=== PATIENT | male | born 1960 | race Caucasian/White ===

== ENCOUNTER 2017-12-14 16:45 | Outpatient (RCR) | payer OTHER, SELFPAY ==
--- NOTE | 2017-08-09 17:15 | PT.OIE ---
Current Diagnoses Unilateral primary osteoarthritis, left knee (08/09/17) Past Surgical History (Last Reviewed 07/15/17 @ 11:47 by Jesenia Dickson PA-C) History of knee replacement History of vasectomy Status post knee surgery Provider Visit Care Team Role Provider Type Stefan Saravia MD Attending Provider Physician Family Provider Primary Care Provider Specialty: Internal Medicine Address: [address] [place] [address], [facility] Email: [email or web address] Physical Therapy Initial Evaluation PT-OP-A Visit Information Start: 08/09/17 09:47 Freq: Status: Active Protocol: Document 08/09/17 10:34 [facility] (Rec: 08/09/17 15:14 [facility] [id number]) Out-Patient Physical Therapy Visit Information Visit Information Visit Type Initial Evaluation Visit Start Time 10:30 Visit Stop Time 11:25 Total Visit Minutes 55 Visit Number 04/04 Number of MEDICAL STAFF SPECIALIST Visits 0 PT-OP-B Current Condition Start: 08/09/17 09:47 Freq: Status: Active Protocol: Document 08/09/17 10:34 [facility] (Rec: 08/09/17 17:15 [facility] [id number]) Current Condition History of Current Condition History of Current Condition Pt had L partial knee replacement on 08/07/17 and has been taking percocet and visceral for pain. 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 Reports he played a lot of football when he was young, causing him to need his replacements. Treatment Goals Patient/Caregiver Goals Recover without requiring a manipulation PT-OP-C Subjective Start: 08/09/17 09:47 Freq: Status: Active Protocol: Document 08/09/17 10:34 [facility] (Rec: 08/09/17 15:14 [facility] [id number]) Patient Questionnaires Lower Extremity Functional Scale LEFS Score 1 LEFS Impairment 80 to 99% Impaired (Score 1-16 ) OP-PT Pain Assessment Location Left Knee Pain Location Details lat Intensity 9 Scale Used Numeric (1 - 10) Other Pain Aggravating Factors activity, bending Home Pain Medication Use Pain Medications Used Yes PT-OP-G Mobility & Gait Start: 08/09/17 09:47 Freq: Status: Active Protocol: Document 08/09/17 10:34 [facility] (Rec: 08/09/17 15:10 [facility] [id number]) OP Gait Assessment Comments Gait Comments Step to with fwd lean & FWW PT-OP-K Range of Motion Start: 08/09/17 09:47 Freq: Status: Active Protocol: Document 08/09/17 10:34 [facility] (Rec: 08/09/17 15:10 [facility] [id number]) Knee Goniometric Range of Motion Knee Measured in Degrees Left Patient Position Supine Flexion Active (degrees) 64 Extension Active (degrees) 25 PT-OP-M Strength Start: 08/09/17 09:47 Freq: Status: Active Protocol: Document 08/09/17 10:34 [facility] (Rec: 08/09/17 15:10 [facility] [id number]) Hip Strength Hip Manual Muscle Testing Right Flexion (L2) 4 Good External Rotation 4- Good- Internal Rotation 4 Good Comments knee & ankle WNL R Left Flexion (L2) 3- Fair- External Rotation 3 Fair Internal Rotation 3 Fair Knee Strength Knee Manual Muscle Testing Left Flexion (S2) 3+ Fair+ Extension (L3) 2- Poor- PT-OP-Q Treatments Start: 08/09/17 09:47 Freq: Status: Active Protocol: Document 08/09/17 10:34 [facility] (Rec: 08/09/17 15:10 [facility] [id number]) Therapeutic Exercises Supine Exercises 6 Supine Exercise Name SAQ Side left Comments AA 5 Supine Exercise Name SLR Side left Comments AA 4 Supine Exercise Name passive ext Reps/Minutes 1' 3 Supine Exercise Name quad sets Side left Reps/Minutes 10 2 Supine Exercise Name heel slides Side left Reps/Minutes 10 1 Supine Exercise Name APs Side bilateral Sitting Exercises 1 Sitting Exercise Name seated flex Reps/Minutes 3 Therapeutic Activity Therapeutic Activity 1 Name edu Comments icing, frequent small bouts of activity, importance of HEP PT-OP-T Assessment and Plan Start: 08/09/17 09:47 Freq: Status: Active Protocol: Document 08/09/17 10:34 [facility] (Rec: 08/09/17 17:15 [facility] [id number]) Physical Therapy Assessment Rehab Potential Rehabilitation Potential Excellent Evaluation Complexity Number of Personal Factors/Comorbidities 3 or More Number of Body Systems Impaired 4 or More Clinical Presentation at Evaluation Evolving Impairments Impairments Balance Gait Pain Posture Soft Tissue Mobility Strength Goals Four Impairment LEFS Short Term Goal (STG) 35/80 STG Duration 09/09/47 Magnetic Healer Goal (LTG) 65/80 LTG Duration 10/09/17 Three Impairment gait Short Term Goal (STG) Pt will amb with good mechanics with SPC STG Duration 08/28/17 Retirement Goal (LTG) Pt will amb with good mechanics without AD LTG Duration 10/09/17 Two Impairment MMT Retirement Goal (LTG) 5/5 to allow pt to do normal functional & rec activities LTG Duration 10/09/17 One Impairment ROM Short Term Goal (STG) 10-100 STG Duration 09/08/17 Magnetic Healer Goal (LTG) 0-125 to allow pt to do stairs and functional activities without pain LTG Duration 08/09/17 Physical Therapy Plan Frequency and Duration Frequency of Treatment 2x/Week Duration of Treatment 2months Plan of Care Start Date 08/09/17 Plan of Care End Date 10/09/17 Therapeutic Interventions Therapeutic Interventions Aquatic Therapy Balance Training Gait Training Home Exercise Program Joint Mobilizations Manual Therapy Soft Tissue Mobilization Taping Therapeutic Exercises Modalities Cold Pack/Ice Massage Electric Stimulation Hot Packs Ultrasound Next Visit Focus/Plan Next Note Type Treatment Note Next Visit Plan Recumbant bike, review HEP, heel raises, supine abd, knee flex exercises Please Sign and Return: I have reviewed this Plan of Care and certify that the skilled therapy services above are required to meet the patient?s needs. Physician Signature Date Printed Name and Credentials Clinical Instructor Signature Printed Name and Credentials
--- NOTE | 2017-08-09 17:15 | PT.OPPOC ---
Current Diagnoses Unilateral primary osteoarthritis, left knee (08/09/17) Provider Visit Care Team Role Provider Type Stefan Saravia MD Attending Provider Physician Family Provider Primary Care Provider Specialty: Internal Medicine Address: [address] [place] [address], [id number] Email: [email or web address] Plan Of Care PT-OP-T Assessment and Plan Start: 08/09/17 09:47 Freq: Status: Active Protocol: Document 08/09/17 10:34 [facility] (Rec: 08/09/17 17:15 [facility] [id number]) Physical Therapy Assessment Rehab Potential Rehabilitation Potential Excellent Evaluation Complexity Number of Personal Factors/Comorbidities 3 or More Number of Body Systems Impaired 4 or More Clinical Presentation at Evaluation Evolving Impairments Impairments Balance Gait Pain Posture Soft Tissue Mobility Strength Goals Four Impairment LEFS Short Term Goal (STG) 35/80 STG Duration 09/09/47 Back Filler Operator Goal (LTG) 65/80 LTG Duration 10/09/17 Three Impairment gait Short Term Goal (STG) Pt will amb with good mechanics with SPC STG Duration 08/28/17 Alf Goal (LTG) Pt will amb with good mechanics without AD LTG Duration 10/09/17 Two Impairment MMT Back Filler Operator Goal (LTG) 5/5 to allow pt to do normal functional & rec activities LTG Duration 10/09/17 One Impairment ROM Short Term Goal (STG) 10-100 STG Duration 09/08/17 Back Filler Operator Goal (LTG) 0-125 to allow pt to do stairs and functional activities without pain LTG Duration 08/09/17 Physical Therapy Plan Frequency and Duration Frequency of Treatment 2x/Week Duration of Treatment 2months Plan of Care Start Date 08/09/17 Plan of Care End Date 10/09/17 Therapeutic Interventions Therapeutic Interventions Aquatic Therapy Balance Training Gait Training Home Exercise Program Joint Mobilizations Manual Therapy Soft Tissue Mobilization Taping Therapeutic Exercises Modalities Cold Pack/Ice Massage Electric Stimulation Hot Packs Ultrasound Next Visit Focus/Plan Next Note Type Treatment Note Next Visit Plan Recumbant bike, review HEP, heel raises, supine abd, knee flex exercises Plan of Care Dates Plan of Care Start Date 08/09/17 Plan of Care End Date 10/09/17 Please Sign and Return: I have reviewed this Plan of Care and certify that the skilled therapy services above are required to meet the patient?s needs. Physician Signature Date Printed Name and Credentials Clinical Instructor Signature Printed Name and Credentials
--- NOTE | 2017-08-11 15:36 | PT.OTN ---
Current Diagnoses Unilateral primary osteoarthritis, left knee (08/11/17) Physical Therapy Treatment Note PT-OP-A Visit Information Start: 08/09/17 09:47 Freq: Status: Active Protocol: Document 08/11/17 14:06 [facility] (Rec: 08/11/17 15:34 [facility] [id number]) Out-Patient Physical Therapy Visit Information Visit Information Visit Type Treatment Note Visit Note 30 PCY Visit Start Time 13:45 Visit Stop Time 14:40 Total Visit Minutes 55 Visit Number 2 PT-OP-B Current Condition Start: 08/09/17 09:47 Freq: Status: Active Protocol: Document 08/09/17 10:34 [facility] (Rec: 08/09/17 17:15 [facility] [id number]) Current Condition History of Current Condition History of Current Condition Pt had L partial knee replacement on 08/07/17 and has been taking percocet and visceral for pain. 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 Reports he played a lot of football when he was young, causing him to need his replacements. Treatment Goals Patient/Caregiver Goals Recover without requiring a manipulation PT-OP-C Subjective Start: 08/09/17 09:47 Freq: Status: Active Protocol: Document 08/11/17 14:06 [facility] (Rec: 08/11/17 15:34 [facility] [id number]) OP-PT Subjective Patient Comments Patient Comments Reports he thinks flex is improving. Notes his calf has been a little sore but he feels better with APs. PT-OP-G Mobility & Gait Start: 08/09/17 09:47 Freq: Status: Active Protocol: Document 08/09/17 10:34 [facility] (Rec: 08/09/17 15:10 [facility] [id number]) OP Gait Assessment Comments Gait Comments Step to with fwd lean & FWW PT-OP-K Range of Motion Start: 08/09/17 09:47 Freq: Status: Active Protocol: Document 08/09/17 10:34 [facility] (Rec: 08/09/17 15:10 [facility] [id number]) Knee Goniometric Range of Motion Knee Measured in Degrees Left Patient Position Supine Flexion Active (degrees) 64 Extension Active (degrees) 25 PT-OP-M Strength Start: 08/09/17 09:47 Freq: Status: Active Protocol: Document 08/09/17 10:34 [facility] (Rec: 08/09/17 15:10 [facility] [id number]) Hip Strength Hip Manual Muscle Testing Right Flexion (L2) 4 Good External Rotation 4- Good- Internal Rotation 4 Good Comments knee & ankle WNL R Left Flexion (L2) 3- Fair- External Rotation 3 Fair Internal Rotation 3 Fair Knee Strength Knee Manual Muscle Testing Left Flexion (S2) 3+ Fair+ Extension (L3) 2- Poor- PT-OP-Q Treatments Start: 08/09/17 09:47 Freq: Status: Active Protocol: Document 08/11/17 14:06 [facility] (Rec: 08/11/17 15:34 [facility] [id number]) Cardio Equipment Recumbent Bicycle Duration (Minutes) 5 Other rocking Therapeutic Exercises Supine Exercises 5 Supine Exercise Name SLR Side left Reps/Minutes 5 4 Supine Exercise Name passive ext Reps/Minutes 1' 3 Supine Exercise Name quad sets Side left Reps/Minutes 10 2 Supine Exercise Name heel slides Side left Reps/Minutes 10 Comments w/belt use 1 Supine Exercise Name APs Side bilateral Standing Exercises 1 Standing Exercise Name TKE against pillow at wall Manual Therapy Treatment Soft Tissue Mobilization 1 Body Location HS proximal Mobilization Type Rolling Intensity/Depth Superficial Manual Techniques 1 Type Passive ext & flex stretches & HS stretching Comments educated Self-Care/Home Management Treatment Education Other Education Elevate LE over heart & go to ED if calf pain gets worse or redness or swelling is noted. PT-OP-R Modalities Start: 08/09/17 09:47 Freq: Status: Active Protocol: Document 08/11/17 14:06 [facility] (Rec: 08/11/17 15:36 [facility] [id number]) Hot Pack/Cold Pack Treatment cryocuff Location L knee Patient Position Supine Treatment Duration (minutes) 10 Comments Leg elevated PT-OP-T Assessment and Plan Start: 08/09/17 09:47 Freq: Status: Active Protocol: Document 08/11/17 14:06 [facility] (Rec: 08/11/17 15:34 [facility] [id number]) Physical Therapy Assessment Goals Four Impairment LEFS Short Term Goal (STG) 35/80 STG Duration 09/09/47 Building Operator Goal (LTG) 65/80 LTG Duration 10/09/17 Three Impairment gait Short Term Goal (STG) Pt will amb with good mechanics with SPC STG Duration 08/28/17 Half-Way Goal (LTG) Pt will amb with good mechanics without AD LTG Duration 10/09/17 Two Impairment MMT Building Operator Goal (LTG) 5/5 to allow pt to do normal functional & rec activities LTG Duration 10/09/17 One Impairment ROM Short Term Goal (STG) 10-100 STG Duration 09/08/17 Building Operator Goal (LTG) 0-125 to allow pt to do stairs and functional activities without pain LTG Duration 08/09/17 Assessment Summary Assessment Pt is improving with his flexion to 72 deg after manual and self stretching. No tenderness in calf with squeeze and neg negrita's test. No redness or inc temp present in calf. Pt cont to be very tight into ext and presented with less ext since last visit. Improved with manual rx and pt to start elevating leg further over heart. Physical Therapy Plan Frequency and Duration Frequency of Treatment 2x/Week Duration of Treatment 2months Plan of Care Start Date 08/09/17 Plan of Care End Date 10/09/17 Therapeutic Interventions Therapeutic Interventions Aquatic Therapy Balance Training Gait Training Home Exercise Program Joint Mobilizations Manual Therapy Soft Tissue Mobilization Taping Therapeutic Exercises Modalities Cold Pack/Ice Massage Electric Stimulation Hot Packs Ultrasound Next Visit Focus/Plan Next Note Type Treatment Note Next Visit Plan supine abd, ball flex, review HEP Please Sign and Return: I have reviewed this Plan of Care and certify that the skilled therapy services above are required to meet the patient?s needs. Physician Signature Date Printed Name and Credentials Clinical Instructor Signature Printed Name and Credentials
--- NOTE | 2017-08-16 10:32 | PT.OTN ---
Current Diagnoses Unilateral primary osteoarthritis, left knee (08/16/17) Physical Therapy Treatment Note PT-OP-A Visit Information Start: 08/09/17 09:47 Freq: Status: Active Protocol: Document 08/16/17 09:50 [facility] (Rec: 08/16/17 10:30 [facility] [id number]) Out-Patient Physical Therapy Visit Information Visit Information Visit Type Treatment Note Visit Note 30 PCY Visit Start Time 09:45 Visit Stop Time 10:40 Total Visit Minutes 55 Visit Number 3 PT-OP-B Current Condition Start: 08/09/17 09:47 Freq: Status: Active Protocol: Document 08/09/17 10:34 [facility] (Rec: 08/09/17 17:15 [facility] [id number]) Current Condition History of Current Condition History of Current Condition Pt had L partial knee replacement on 08/07/17 and has been taking percocet and visceral for pain. 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 Reports he played a lot of football when he was young, causing him to need his replacements. Treatment Goals Patient/Caregiver Goals Recover without requiring a manipulation PT-OP-C Subjective Start: 08/09/17 09:47 Freq: Status: Active Protocol: Document 08/16/17 09:50 [facility] (Rec: 08/16/17 10:30 [facility] [id number]) OP-PT Subjective Patient Comments Patient Comments Reports he has been compliant with HEP. 2 days ago weaned down to cane. PT-OP-G Mobility & Gait Start: 08/09/17 09:47 Freq: Status: Active Protocol: Document 08/09/17 10:34 [facility] (Rec: 08/09/17 15:10 [facility] [id number]) OP Gait Assessment Comments Gait Comments Step to with fwd lean & FWW PT-OP-K Range of Motion Start: 08/09/17 09:47 Freq: Status: Active Protocol: Document 08/09/17 10:34 [facility] (Rec: 08/09/17 15:10 [facility] [id number]) Knee Goniometric Range of Motion Knee Measured in Degrees Left Patient Position Supine Flexion Active (degrees) 64 Extension Active (degrees) 25 PT-OP-M Strength Start: 08/09/17 09:47 Freq: Status: Active Protocol: Document 08/09/17 10:34 [facility] (Rec: 08/09/17 15:10 [facility] [id number]) Hip Strength Hip Manual Muscle Testing Right Flexion (L2) 4 Good External Rotation 4- Good- Internal Rotation 4 Good Comments knee & ankle WNL R Left Flexion (L2) 3- Fair- External Rotation 3 Fair Internal Rotation 3 Fair Knee Strength Knee Manual Muscle Testing Left Flexion (S2) 3+ Fair+ Extension (L3) 2- Poor- PT-OP-Q Treatments Start: 08/09/17 09:47 Freq: Status: Active Protocol: Document 08/16/17 09:50 [facility] (Rec: 08/16/17 10:30 [facility] [id number]) Cardio Equipment Recumbent Bicycle Duration (Minutes) 5 Other rocking Therapeutic Exercises Supine Exercises 7 Supine Exercise Name tball flex Reps/Minutes 20 Sidelying Exercises 1 Sidelying Exercise Name hip abd Reps/Minutes 10 Sitting Exercises 2 Sitting Exercise Name HS stretch Standing Exercises 2 Standing Exercise Name calf stretch Manual Therapy Treatment Soft Tissue Mobilization 1 Body Location HS proximal Mobilization Type Rolling Intensity/Depth Superficial Manual Techniques 1 Type Passive ext & flex stretches & HS stretching Comments educated PT-OP-R Modalities Start: 08/09/17 09:47 Freq: Status: Active Protocol: Document 08/16/17 09:50 [facility] (Rec: 08/16/17 10:31 [facility] [id number]) Hot Pack/Cold Pack Treatment cryocuff Location L knee Patient Position Supine Treatment Duration (minutes) 10 Comments Leg elevated PT-OP-T Assessment and Plan Start: 08/09/17 09:47 Freq: Status: Active Protocol: Document 08/16/17 09:50 [facility] (Rec: 08/16/17 10:30 [facility] [id number]) Physical Therapy Assessment Goals Four Impairment LEFS Short Term Goal (STG) 35/80 STG Duration 09/09/47 Research And Evaluation Manager Goal (LTG) 65/80 LTG Duration 10/09/17 Three Impairment gait Short Term Goal (STG) Pt will amb with good mechanics with SPC STG Duration 08/28/17 Assisted Goal (LTG) Pt will amb with good mechanics without AD LTG Duration 10/09/17 Two Impairment MMT Research And Evaluation Manager Goal (LTG) 5/5 to allow pt to do normal functional & rec activities LTG Duration 10/09/17 One Impairment ROM Short Term Goal (STG) 10-100 STG Duration 09/08/17 Assisted Goal (LTG) 0-125 to allow pt to do stairs and functional activities without pain LTG Duration 08/09/17 Assessment Summary Assessment Dec pitting edema in LLE. Pt started with ROM 18-90 deg and improved ext to 11. Pt did well with gait with cane especially after height was adjusted. Physical Therapy Plan Frequency and Duration Frequency of Treatment 2x/Week Duration of Treatment 2months Plan of Care Start Date 08/09/17 Plan of Care End Date 10/09/17 Next Visit Focus/Plan Next Note Type Treatment Note Next Visit Plan COnt to progress flex & ext ROM Please Sign and Return: I have reviewed this Plan of Care and certify that the skilled therapy services above are required to meet the patient?s needs. Physician Signature Date Printed Name and Credentials Clinical Instructor Signature Printed Name and Credentials
--- NOTE | 2017-08-18 15:15 | PT.OTN ---
Current Diagnoses Unilateral primary osteoarthritis, left knee (08/18/17) Physical Therapy Treatment Note PT-OP-A Visit Information Start: 08/09/17 09:47 Freq: Status: Active Protocol: Document 08/18/17 14:25 [facility] (Rec: 08/18/17 15:15 [facility] [id number]) Out-Patient Physical Therapy Visit Information Visit Information Visit Type Treatment Note Visit Note 30 PCY Visit Start Time 14:25 Visit Stop Time 15:20 Total Visit Minutes 55 Visit Number 4 PT-OP-B Current Condition Start: 08/09/17 09:47 Freq: Status: Active Protocol: Document 08/09/17 10:34 [facility] (Rec: 08/09/17 17:15 [facility] [id number]) Current Condition History of Current Condition History of Current Condition Pt had L partial knee replacement on 08/07/17 and has been taking percocet and visceral for pain. 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 Reports he played a lot of football when he was young, causing him to need his replacements. Treatment Goals Patient/Caregiver Goals Recover without requiring a manipulation PT-OP-C Subjective Start: 08/09/17 09:47 Freq: Status: Active Protocol: Document 08/18/17 14:25 [facility] (Rec: 08/18/17 15:15 [facility] [id number]) OP-PT Subjective Patient Comments Patient Comments Reports yesterday he did a lot of walking but not as much exercise d/t being so busy. He has been using tball to do knee flex. PT-OP-G Mobility & Gait Start: 08/09/17 09:47 Freq: Status: Active Protocol: Document 08/09/17 10:34 [facility] (Rec: 08/09/17 15:10 [facility] [id number]) OP Gait Assessment Comments Gait Comments Step to with fwd lean & FWW PT-OP-K Range of Motion Start: 08/09/17 09:47 Freq: Status: Active Protocol: Document 08/18/17 14:25 [facility] (Rec: 08/18/17 15:15 [facility] [id number]) Knee Goniometric Range of Motion Knee Measured in Degrees Left Flexion Active (degrees) 90 Extension Active (degrees) 18 PT-OP-M Strength Start: 08/09/17 09:47 Freq: Status: Active Protocol: Document 08/09/17 10:34 [facility] (Rec: 08/09/17 15:10 [facility] [id number]) Hip Strength Hip Manual Muscle Testing Right Flexion (L2) 4 Good External Rotation 4- Good- Internal Rotation 4 Good Comments knee & ankle WNL R Left Flexion (L2) 3- Fair- External Rotation 3 Fair Internal Rotation 3 Fair Knee Strength Knee Manual Muscle Testing Left Flexion (S2) 3+ Fair+ Extension (L3) 2- Poor- PT-OP-Q Treatments Start: 08/09/17 09:47 Freq: Status: Active Protocol: Document 08/18/17 14:25 [facility] (Rec: 08/18/17 15:15 [facility] [id number]) Cardio Equipment Recumbent Bicycle Duration (Minutes) 5 Other rocking Gym Equipment Shuttle Recovery Unilateral Squats Details L Resistance 37# Shuttle Recovery Platform Stable Reps/Time 10 Bilateral Squats Resistance 75# Shuttle Recovery Platform Stable Reps/Time 2x15 Therapeutic Exercises Supine Exercises 3 Supine Exercise Name quad sets Side left Reps/Minutes 10 Comments w/overpressure 2 Supine Exercise Name heel slides Side left Reps/Minutes 10 Comments w/APs Standing Exercises 5 Standing Exercise Name stair flex stretch 4 Standing Exercise Name Hs stretch on stair 3 Standing Exercise Name HEYDI Reps/Minutes 1 min Manual Therapy Treatment Soft Tissue Mobilization 1 Body Location HS proximal & distal Mobilization Type Rolling Intensity/Depth Moderate Manual Techniques 1 Type Passive ext & flex stretches & HS stretching Comments educated PT-OP-R Modalities Start: 08/09/17 09:47 Freq: Status: Active Protocol: Document 08/18/17 14:25 [facility] (Rec: 08/18/17 15:15 [facility] [id number]) Hot Pack/Cold Pack Treatment cryocuff Location L knee Patient Position Supine Treatment Duration (minutes) 10 Comments Leg elevated PT-OP-T Assessment and Plan Start: 08/09/17 09:47 Freq: Status: Active Protocol: Document 08/18/17 14:25 [facility] (Rec: 08/18/17 15:15 [facility] [id number]) Physical Therapy Assessment Goals Four Impairment LEFS Short Term Goal (STG) 35/80 STG Duration 09/09/47 Care Home Goal (LTG) 65/80 LTG Duration 10/09/17 Three Impairment gait Short Term Goal (STG) Pt will amb with good mechanics with SPC STG Duration 08/28/17 Doughnut Icer Machine Goal (LTG) Pt will amb with good mechanics without AD LTG Duration 10/09/17 Two Impairment MMT Doughnut Icer Machine Goal (LTG) 5/5 to allow pt to do normal functional & rec activities LTG Duration 10/09/17 One Impairment ROM Short Term Goal (STG) 10-100 STG Duration 09/08/17 Doughnut Icer Machine Goal (LTG) 0-125 to allow pt to do stairs and functional activities without pain LTG Duration 08/09/17 Assessment Summary Assessment Improved ROM to 10 deg ext and 95 deg flex after manual. Cueing required for breathing during exercises. Physical Therapy Plan Frequency and Duration Frequency of Treatment 2x/Week Duration of Treatment 2months Plan of Care Start Date 08/09/17 Plan of Care End Date 10/09/17 Next Visit Focus/Plan Next Note Type Treatment Note Next Visit Plan Cont to progress flex & ext ROM Please Sign and Return: I have reviewed this Plan of Care and certify that the skilled therapy services above are required to meet the patient?s needs. Physician Signature Date Printed Name and Credentials Clinical Instructor Signature Printed Name and Credentials
--- NOTE | 2017-08-23 15:56 | PT.OTN ---
Current Diagnoses Unilateral primary osteoarthritis, left knee (08/23/17) Physical Therapy Treatment Note PT-OP-A Visit Information Start: 08/09/17 09:47 Freq: Status: Active Protocol: Document 08/23/17 14:30 [facility] (Rec: 08/23/17 15:56 [facility] [email or web address]) Out-Patient Physical Therapy Visit Information Visit Information Visit Type Treatment Note Visit Note 30 PCY Visit Start Time 14:30 Visit Stop Time 15:25 Total Visit Minutes 55 Visit Number 5 Number of EPILEPSY PHYSICIAN Visits 1 Evaluation Information Evaluation Date 08/09/17 PT-OP-B Current Condition Start: 08/09/17 09:47 Freq: Status: Active Protocol: Document 08/09/17 10:34 [facility] (Rec: 08/09/17 17:15 [facility] [id number]) Current Condition History of Current Condition History of Current Condition Pt had L partial knee replacement on 08/07/17 and has been taking percocet and visceral for pain. 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 Reports he played a lot of football when he was young, causing him to need his replacements. Treatment Goals Patient/Caregiver Goals Recover without requiring a manipulation PT-OP-C Subjective Start: 08/09/17 09:47 Freq: Status: Active Protocol: Document 08/23/17 14:30 [facility] (Rec: 08/23/17 15:56 [facility] [email or web address]) OP-PT Subjective Patient Comments Patient Comments Pt states he was able to go around on the bike backwards. PT-OP-G Mobility & Gait Start: 08/09/17 09:47 Freq: Status: Active Protocol: Document 08/09/17 10:34 [facility] (Rec: 08/09/17 15:10 [facility] [id number]) OP Gait Assessment Comments Gait Comments Step to with fwd lean & FWW PT-OP-K Range of Motion Start: 08/09/17 09:47 Freq: Status: Active Protocol: Document 08/23/17 14:30 [facility] (Rec: 08/23/17 15:56 [facility] [email or web address]) Knee Goniometric Range of Motion Knee Measured in Degrees Left Patient Position Supine Flexion Active (degrees) 99 Extension Active (degrees) 9 PT-OP-M Strength Start: 08/09/17 09:47 Freq: Status: Active Protocol: Document 08/09/17 10:34 [facility] (Rec: 08/09/17 15:10 [facility] [id number]) Hip Strength Hip Manual Muscle Testing Right Flexion (L2) 4 Good External Rotation 4- Good- Internal Rotation 4 Good Comments knee & ankle WNL R Left Flexion (L2) 3- Fair- External Rotation 3 Fair Internal Rotation 3 Fair Knee Strength Knee Manual Muscle Testing Left Flexion (S2) 3+ Fair+ Extension (L3) 2- Poor- PT-OP-Q Treatments Start: 08/09/17 09:47 Freq: Status: Active Protocol: Document 08/23/17 14:30 [facility] (Rec: 08/23/17 15:56 [facility] [email or web address]) Cardio Equipment Recumbent Bicycle Duration (Minutes) 5 Other rocking Gym Equipment Shuttle Recovery Unilateral Squats Details L Resistance 37# Shuttle Recovery Platform Stable Reps/Time 10 Bilateral Squats Resistance 75# Shuttle Recovery Platform Stable Reps/Time 2x15 Therapeutic Exercises Supine Exercises 3 Supine Exercise Name quad sets Side left Reps/Minutes 10 Comments w/overpressure 2 Supine Exercise Name heel slides Side left Reps/Minutes 10 Comments w/APs Standing Exercises 5 Standing Exercise Name stair flex stretch 4 Standing Exercise Name Hs stretch on stair 3 Standing Exercise Name HEYDI Reps/Minutes 1 min Manual Therapy Treatment Soft Tissue Mobilization 2 Body Location quad with knee flexion Mobilization Type Myofascial Release Intensity/Depth Moderate Body Position Sitting 1 Body Location HS proximal & distal Mobilization Type Rolling Intensity/Depth Moderate Manual Techniques 1 Type Passive ext & flex stretches & HS stretching Comments educated PT-OP-R Modalities Start: 08/09/17 09:47 Freq: Status: Active Protocol: Document 08/23/17 14:30 [facility] (Rec: 08/23/17 15:56 [facility] [email or web address]) Hot Pack/Cold Pack Treatment Cold Pack Location left knee Patient Position Supine Treatment Duration (minutes) 10 Comments Knee elevated. PT-OP-T Assessment and Plan Start: 08/09/17 09:47 Freq: Status: Active Protocol: Document 08/23/17 14:30 [facility] (Rec: 08/23/17 15:56 [facility] [email or web address]) Physical Therapy Assessment Assessment Summary Assessment PT improving with ROM and decrease in swelling. Physical Therapy Plan Frequency and Duration Frequency of Treatment 2x/Week Duration of Treatment 2months Plan of Care Start Date 08/09/17 Plan of Care End Date 10/09/17 Next Visit Focus/Plan Next Note Type Treatment Note Next Visit Plan Cont to progress flex & ext ROM
--- NOTE | 2017-08-25 14:29 | PT.OTN ---
Current Diagnoses Unilateral primary osteoarthritis, left knee (08/25/17) Physical Therapy Treatment Note PT-OP-A Visit Information Start: 08/09/17 09:47 Freq: Status: Active Protocol: Document 08/25/17 13:06 [facility] (Rec: 08/25/17 14:28 [facility] [id number]) Out-Patient Physical Therapy Visit Information Visit Information Visit Type Treatment Note Visit Note 30 PCY Visit Start Time 13:00 Visit Stop Time 13:55 Total Visit Minutes 55 Visit Number 6 Number of PROCUREMENT CLERK Visits 1 PT-OP-B Current Condition Start: 08/09/17 09:47 Freq: Status: Active Protocol: Document 08/09/17 10:34 [facility] (Rec: 08/09/17 17:15 [facility] [email or web address]) Current Condition History of Current Condition History of Current Condition Pt had L partial knee replacement on 08/07/17 and has been taking percocet and visceral for pain. 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 Reports he played a lot of football when he was young, causing him to need his replacements. Treatment Goals Patient/Caregiver Goals Recover without requiring a manipulation PT-OP-C Subjective Start: 08/09/17 09:47 Freq: Status: Active Protocol: Document 08/25/17 13:06 [facility] (Rec: 08/25/17 14:28 [facility] [id number]) OP-PT Subjective Patient Comments Patient Comments Reports his PA told him she thought he was ahead of schedule. PT-OP-G Mobility & Gait Start: 08/09/17 09:47 Freq: Status: Active Protocol: Document 08/09/17 10:34 [facility] (Rec: 08/09/17 15:10 [facility] [id number]) OP Gait Assessment Comments Gait Comments Step to with fwd lean & FWW PT-OP-K Range of Motion Start: 08/09/17 09:47 Freq: Status: Active Protocol: Document 08/23/17 14:30 [facility] (Rec: 08/23/17 15:56 [facility] [email or web address]) Knee Goniometric Range of Motion Knee Measured in Degrees Left Patient Position Supine Flexion Active (degrees) 99 Extension Active (degrees) 9 PT-OP-M Strength Start: 08/09/17 09:47 Freq: Status: Active Protocol: Document 08/09/17 10:34 [facility] (Rec: 08/09/17 15:10 [facility] [id number]) Hip Strength Hip Manual Muscle Testing Right Flexion (L2) 4 Good External Rotation 4- Good- Internal Rotation 4 Good Comments knee & ankle WNL R Left Flexion (L2) 3- Fair- External Rotation 3 Fair Internal Rotation 3 Fair Knee Strength Knee Manual Muscle Testing Left Flexion (S2) 3+ Fair+ Extension (L3) 2- Poor- PT-OP-Q Treatments Start: 08/09/17 09:47 Freq: Status: Active Protocol: Document 08/25/17 13:06 [facility] (Rec: 08/25/17 14:28 [facility] [id number]) Cardio Equipment Recumbent Bicycle Duration (Minutes) 7 Other rocking Gym Equipment Shuttle Recovery Unilateral Squats Details L Resistance 37# Shuttle Recovery Platform Stable Reps/Time 10 Bilateral Squats Resistance 75# Shuttle Recovery Platform Stable Reps/Time 2x15 Therapeutic Exercises Standing Exercises 7 Standing Exercise Name wall squats Reps/Minutes 12 6 Standing Exercise Name TKE Resistance lvl 1 Reps/Minutes 20 3 Standing Exercise Name HEYDI Reps/Minutes 1 min Gait Training Gait Activity 1 Description up/down stairs Distance/Duration 5x Comments up 6 in reciprocal down 4 in reciprocal Manual Therapy Treatment Soft Tissue Mobilization 1 Body Location HS proximal & distal Mobilization Type Rolling Intensity/Depth Moderate Manual Techniques 1 Type Passive ext & flex stretches & HS stretching Comments educated PT-OP-R Modalities Start: 08/09/17 09:47 Freq: Status: Active Protocol: Document 08/25/17 13:06 [facility] (Rec: 08/25/17 14:28 [facility] [id number]) Hot Pack/Cold Pack Treatment cryocuff Location L knee Patient Position Supine Treatment Duration (minutes) 10 Comments Leg elevated PT-OP-T Assessment and Plan Start: 08/09/17 09:47 Freq: Status: Active Protocol: Document 08/25/17 13:06 [facility] (Rec: 08/25/17 14:28 [facility] [id number]) Physical Therapy Assessment Goals Four Impairment LEFS Short Term Goal (STG) 35/80 STG Duration 09/09/47 [facility]entiary Goal (LTG) 65/80 LTG Duration 10/09/17 Three Impairment gait Short Term Goal (STG) Pt will amb with good mechanics with SPC STG Duration 08/28/17 Fuel Retrofitting Technician Goal (LTG) Pt will amb with good mechanics without AD LTG Duration 10/09/17 Two Impairment MMT Penitentiary Goal (LTG) 5/5 to allow pt to do normal functional & rec activities LTG Duration 10/09/17 One Impairment ROM Short Term Goal (STG) 10-100 STG Duration 09/08/17 Fuel Retrofitting Technician Goal (LTG) 0-125 to allow pt to do stairs and functional activities without pain LTG Duration 08/09/17 Assessment Summary Assessment Pt cont to improve with tolerance to exercise & activity. Pt is slowly improving with ROM. Physical Therapy Plan Frequency and Duration Frequency of Treatment 2x/Week Duration of Treatment 2months Plan of Care Start Date 08/09/17 Plan of Care End Date 10/09/17 Next Visit Focus/Plan Next Note Type Treatment Note Next Visit Plan Cont to progress flex & ext ROM
--- NOTE | 2017-08-31 12:55 | PT.OTN ---
Current Diagnoses Unilateral primary osteoarthritis, left knee (08/31/17) Physical Therapy Treatment Note PT-OP-A Visit Information Start: 08/09/17 09:47 Freq: Status: Active Protocol: Document 08/31/17 12:55 [facility] (Rec: 08/31/17 12:57 [facility] [email or web address]) Out-Patient Physical Therapy Visit Information Visit Information Visit Type Treatment Note Visit Note 30 PCY Visit Start Time 12:00 Visit Stop Time 12:55 Total Visit Minutes 55 Visit Number 7 Number of ACCOUNTS PAYABLE PROCESSOR Visits 0 Evaluation Information Evaluation Date 08/09/17 PT-OP-B Current Condition Start: 08/09/17 09:47 Freq: Status: Active Protocol: Document 08/09/17 10:34 [facility] (Rec: 08/09/17 17:15 [facility] [email or web address]) Current Condition History of Current Condition History of Current Condition Pt had L partial knee replacement on 08/07/17 and has been taking percocet and visceral for pain. 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 Reports he played a lot of football when he was young, causing him to need his replacements. 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 PT-OP-G Mobility & Gait Start: 08/09/17 09:47 Freq: Status: Active Protocol: Document 08/09/17 10:34 [facility] (Rec: 08/09/17 15:10 [facility] [id number]) OP Gait Assessment Comments Gait Comments Step to with fwd lean & FWW PT-OP-K Range of Motion Start: 08/09/17 09:47 Freq: Status: Active Protocol: Document 08/31/17 12:55 [facility] (Rec: 08/31/17 12:57 [facility] [email or web address]) Knee Goniometric Range of Motion Knee Measured in Degrees Left Flexion Active (degrees) 101 Extension Active (degrees) 4 PT-OP-M Strength Start: 08/09/17 09:47 Freq: Status: Active Protocol: Document 08/09/17 10:34 [facility] (Rec: 08/09/17 15:10 [facility] [id number]) Hip Strength Hip Manual Muscle Testing Right Flexion (L2) 4 Good External Rotation 4- Good- Internal Rotation 4 Good Comments knee & ankle WNL R Left Flexion (L2) 3- Fair- External Rotation 3 Fair Internal Rotation 3 Fair Knee Strength Knee Manual Muscle Testing Left Flexion (S2) 3+ Fair+ Extension (L3) 2- Poor- PT-OP-Q Treatments Start: 08/09/17 09:47 Freq: Status: Active Protocol: Document 08/31/17 12:55 [facility] (Rec: 08/31/17 13:02 [facility] [email or web address]) Cardio Equipment Recumbent Bicycle Duration (Minutes) 7 Seat Position 12 Other rocking Gym Equipment Shuttle Recovery Bilateral Squats Resistance 75# Shuttle Recovery Platform Stable Reps/Time 2x15 Therapeutic Exercises Sitting Exercises 1 Sitting Exercise Name LAQ Side left Resistance 2 lbs Reps/Minutes 1x15 Standing Exercises 5 Standing Exercise Name stair flex stretch 3 Standing Exercise Name HEYDI Reps/Minutes 1 min Manual Therapy Treatment Soft Tissue Mobilization 3 Body Location L knee scar tissue (incisional region) Mobilization Type Other Intensity/Depth Moderate Body Position Supine 2 Body Location quadriceps Mobilization Type Myofascial Release Intensity/Depth Moderate Body Position Supine Comments left 1 Body Location HS proximal & distal Mobilization Type Rolling Intensity/Depth Moderate Body Position Prone Comments left PT-OP-R Modalities Start: 08/09/17 09:47 Freq: Status: Active Protocol: Document 08/31/17 12:55 [facility] (Rec: 08/31/17 12:57 [facility] [id number]) Hot Pack/Cold Pack Treatment cryocuff Location L knee Patient Position Supine Treatment Duration (minutes) 10 Comments Leg elevated PT-OP-T Assessment and Plan Start: 08/09/17 09:47 Freq: Status: Active Protocol: Document 08/31/17 12:55 [facility] (Rec: 08/31/17 12:57 [facility] [id number]) Physical Therapy Assessment Assessment Summary Assessment Pt continues to make slow but steady improvements in ROM. Pt tolerated prone position well , and increased knee extension with gravity assisted position. Improved knee ROM with gait after manual therapy . Physical Therapy Plan Frequency and Duration Frequency of Treatment 2x/Week Duration of Treatment 2months Plan of Care Start Date 08/09/17 Plan of Care End Date 10/09/17 Next Visit Focus/Plan Next Note Type Treatment Note Next Visit Plan L knee ROM, strengthening quads and HS.
--- NOTE | 2017-09-05 15:00 | PT.OTN ---
Current Diagnoses Unilateral primary osteoarthritis, left knee (09/05/17) Physical Therapy Treatment Note PT-OP-A Visit Information Start: 08/09/17 09:47 Freq: Status: Active Protocol: Document 09/05/17 12:45 [facility] (Rec: 09/05/17 13:29 [facility] [id number]) Out-Patient Physical Therapy Visit Information Visit Information Visit Type Treatment Note Visit Note 30 PCY Visit Start Time 12:45 Visit Stop Time 13:38 Total Visit Minutes 53 Visit Number 8 Number of RN INTERNATIONAL Visits 0 Evaluation Information Evaluation Date 08/09/17 PT-OP-B Current Condition Start: 08/09/17 09:47 Freq: Status: Active Protocol: Document 08/09/17 10:34 [facility] (Rec: 08/09/17 17:15 [facility] [email or web address]) Current Condition History of Current Condition History of Current Condition Pt had L partial knee replacement on 08/07/17 and has been taking percocet and visceral for pain. 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 Reports he played a lot of football when he was young, causing him to need his replacements. Treatment Goals Patient/Caregiver Goals Recover without requiring a manipulation PT-OP-C Subjective Start: 08/09/17 09:47 Freq: Status: Active Protocol: Document 09/05/17 12:45 [facility] (Rec: 09/05/17 13:29 [facility] [id number]) OP-PT Subjective Patient Comments Patient Comments Pt is 4 weeks post op. States his pain with recumbent bike is 8/10, with MWM pain decreased 4/10. Pain after recumbent bike is 2/10. PT-OP-G Mobility & Gait Start: 08/09/17 09:47 Freq: Status: Active Protocol: Document 08/09/17 10:34 [facility] (Rec: 08/09/17 15:10 [facility] [id number]) OP Gait Assessment Comments Gait Comments Step to with fwd lean & FWW PT-OP-K Range of Motion Start: 08/09/17 09:47 Freq: Status: Active Protocol: Document 09/05/17 12:45 [facility] (Rec: 09/05/17 13:29 [facility] [id number]) Knee Goniometric Range of Motion Knee Measured in Degrees Left Patient Position Supine Flexion Active (degrees) 100 Extension Active (degrees) 4 PT-OP-M Strength Start: 08/09/17 09:47 Freq: Status: Active Protocol: Document 08/09/17 10:34 [facility] (Rec: 08/09/17 15:10 [facility] [id number]) Hip Strength Hip Manual Muscle Testing Right Flexion (L2) 4 Good External Rotation 4- Good- Internal Rotation 4 Good Comments knee & ankle WNL R Left Flexion (L2) 3- Fair- External Rotation 3 Fair Internal Rotation 3 Fair Knee Strength Knee Manual Muscle Testing Left Flexion (S2) 3+ Fair+ Extension (L3) 2- Poor- PT-OP-Q Treatments Start: 08/09/17 09:47 Freq: Status: Active Protocol: Document 09/05/17 12:45 [facility] (Rec: 09/05/17 13:29 [facility] [id number]) Cardio Equipment Recumbent Bicycle Duration (Minutes) 8 Seat Position 12 Other rocking with use of cryocuff Gym Equipment Shuttle Recovery Bilateral Squats Resistance 75# Shuttle Recovery Platform Stable Reps/Time 3x10 Therapeutic Exercises Supine Exercises 5 Supine Exercise Name SLR Side left Reps/Minutes 15 reps 3 Supine Exercise Name quad sets Side left Reps/Minutes 10 Comments w/light overpressure 2 Supine Exercise Name MWM for heel slides Side left Reps/Minutes 10 Comments tib/fib anterior glide on femur wtih flexion Standing Exercises 3 Standing Exercise Name HEYDI Reps/Minutes 2' Comments follow stretch with 10x ankle DF Manual Therapy Treatment Soft Tissue Mobilization 3 Body Location L knee scar tissue (incisional region) Mobilization Type Other Intensity/Depth Moderate Body Position Supine PT-OP-R Modalities Start: 08/09/17 09:47 Freq: Status: Active Protocol: Document 09/05/17 12:45 [facility] (Rec: 09/05/17 13:29 [facility] [id number]) Hot Pack/Cold Pack Treatment Cold Pack Comments nee elevated. cryocuff Location L knee Treatment Duration (minutes) 20 Comments Sitting during Recumbent bike & at end of therapy with Leg elevated PT-OP-T Assessment and Plan Start: 08/09/17 09:47 Freq: Status: Active Protocol: Document 09/05/17 12:45 [facility] (Rec: 09/05/17 13:29 [facility] [id number]) Physical Therapy Assessment Assessment Summary Assessment Pt lost control once during recumbent bike self ROM by going full revolution backward once. Pt had increased pain. With MWM and use of cryocuff the pt's pain level decreased to 4/10 and post therapy to 2 /10. Pt L knee is quite swollen; therefore pt was encouraged to keep wrapping the knee for edema management. Posterior knee pain with knee flex was managed with MWM during flexion. Physical Therapy Plan Frequency and Duration Frequency of Treatment 2x/Week Duration of Treatment 2months Plan of Care Start Date 08/09/17 Plan of Care End Date 10/09/17 Next Visit Focus/Plan Next Note Type Treatment Note Next Visit Plan L knee ROM, strengthening quads and HS.
--- NOTE | 2017-09-08 11:27 | PT.OTN ---
Current Diagnoses Unilateral primary osteoarthritis, left knee (09/08/17) Physical Therapy Treatment Note PT-OP-A Visit Information Start: 08/09/17 09:47 Freq: Status: Active Protocol: Document 09/08/17 10:36 [facility] (Rec: 09/08/17 11:26 [facility] [id number]) Out-Patient Physical Therapy Visit Information Visit Information Visit Type Treatment Note Visit Note 30 PCY Visit Start Time 10:30 Visit Stop Time 11:25 Total Visit Minutes 55 Visit Number 9 Number of FIREARMS MODEL MAKER Visits 0 PT-OP-B Current Condition Start: 08/09/17 09:47 Freq: Status: Active Protocol: Document 08/09/17 10:34 [facility] (Rec: 08/09/17 17:15 [facility] [id number]) Current Condition History of Current Condition History of Current Condition Pt had L partial knee replacement on 08/07/17 and has been taking percocet and visceral for pain. 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 Reports he played a lot of football when he was young, causing him to need his replacements. Treatment Goals Patient/Caregiver Goals Recover without requiring a manipulation PT-OP-C Subjective Start: 08/09/17 09:47 Freq: Status: Active Protocol: Document 09/08/17 10:36 [facility] (Rec: 09/08/17 11:26 [facility] [id number]) OP-PT Subjective Patient Comments Patient Comments Pt goes back on monday. PT-OP-G Mobility & Gait Start: 08/09/17 09:47 Freq: Status: Active Protocol: Document 08/09/17 10:34 [facility] (Rec: 08/09/17 15:10 [facility] [id number]) OP Gait Assessment Comments Gait Comments Step to with fwd lean & FWW PT-OP-K Range of Motion Start: 08/09/17 09:47 Freq: Status: Active Protocol: Document 09/08/17 10:36 [facility] (Rec: 09/08/17 11:26 [facility] [id number]) Knee Goniometric Range of Motion Knee Measured in Degrees Left Patient Position Supine Flexion Active (degrees) 95 Extension Active (degrees) 10 PT-OP-M Strength Start: 08/09/17 09:47 Freq: Status: Active Protocol: Document 08/09/17 10:34 [facility] (Rec: 08/09/17 15:10 [facility] [id number]) Hip Strength Hip Manual Muscle Testing Right Flexion (L2) 4 Good External Rotation 4- Good- Internal Rotation 4 Good Comments knee & ankle WNL R Left Flexion (L2) 3- Fair- External Rotation 3 Fair Internal Rotation 3 Fair Knee Strength Knee Manual Muscle Testing Left Flexion (S2) 3+ Fair+ Extension (L3) 2- Poor- PT-OP-Q Treatments Start: 08/09/17 09:47 Freq: Status: Active Protocol: Document 09/08/17 10:36 [facility] (Rec: 09/08/17 11:26 [facility] [id number]) Therapeutic Exercises Sitting Exercises 1 Sitting Exercise Name LAQ Side left Resistance 4 lbs Reps/Minutes 1x15 Comments w/focus on tibial & femur alignment & 2 sec hold at top Standing Exercises 7 Standing Exercise Name sit to stand without hands Reps/Minutes 10 Manual Therapy Treatment Soft Tissue Mobilization 4 Body Location calf Comments FM along gastroc lat border w/ AP 1 Body Location HS proximal & distal Mobilization Type Rolling Intensity/Depth Moderate Comments left FM with knee ext Joint Mobilizations 3 Joint tib fib Direction AP w/ APs 2 Joint tib fem Direction AP femur & tibia FM 1 Joint patellar Direction sup, inf, med Self-Care/Home Management Treatment Education Other Education prone laying for ext over edge & passived seated ext with ankle weight PT-OP-R Modalities Start: 08/09/17 09:47 Freq: Status: Active Protocol: Document 09/08/17 10:36 [facility] (Rec: 09/08/17 11:27 [facility] [id number]) Hot Pack/Cold Pack Treatment cryocuff Location L knee Patient Position Supine Treatment Duration (minutes) 10 Comments Leg elevated PT-OP-T Assessment and Plan Start: 08/09/17 09:47 Freq: Status: Active Protocol: Document 09/08/17 10:36 [facility] (Rec: 09/08/17 11:26 [facility] [id number]) Physical Therapy Assessment Goals Four Impairment LEFS Short Term Goal (STG) 35/80 STG Duration 09/09/47 Care Home Goal (LTG) 65/80 LTG Duration 10/09/17 Three Impairment gait Short Term Goal (STG) Pt will amb with good mechanics with SPC STG Duration 08/28/17 Front Desk Officer Goal (LTG) Pt will amb with good mechanics without AD LTG Duration 10/09/17 Two Impairment MMT Front Desk Officer Goal (LTG) 5/5 to allow pt to do normal functional & rec activities LTG Duration 10/09/17 One Impairment ROM Short Term Goal (STG) 10-100 STG Duration 09/08/17 Front Desk Officer Goal (LTG) 0-125 to allow pt to do stairs and functional activities without pain LTG Duration 08/09/17 Assessment Summary Assessment Pt had improvement to 5-103 after manual rx. Cont dec quad activiation & dec patellar mobility. Physical Therapy Plan Frequency and Duration Frequency of Treatment 2x/Week Duration of Treatment 2months Plan of Care Start Date 08/09/17 Plan of Care End Date 10/09/17 Next Visit Focus/Plan Next Note Type Treatment Note Next Visit Plan Cont to work on range
--- NOTE | 2017-09-13 11:00 | PT.OTN ---
Current Diagnoses Unilateral primary osteoarthritis, left knee (09/13/17) Physical Therapy Treatment Note PT-OP-A Visit Information Start: 08/09/17 09:47 Freq: Status: Active Protocol: Document 09/13/17 08:19 [facility] (Rec: 09/13/17 10:58 [facility] [id number]) Out-Patient Physical Therapy Visit Information Visit Information Visit Type Treatment Note Visit Note 30 PCY Visit Start Time 08:15 Visit Stop Time 09:10 Total Visit Minutes 55 Visit Number 10 Number of LATENT FINGERPRINT EXAMINER Visits 0 PT-OP-B Current Condition Start: 08/09/17 09:47 Freq: Status: Active Protocol: Document 08/09/17 10:34 [facility] (Rec: 08/09/17 17:15 [facility] [id number]) Current Condition History of Current Condition History of Current Condition Pt had L partial knee replacement on 08/07/17 and has been taking percocet and visceral for pain. 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 Reports he played a lot of football when he was young, causing him to need his replacements. Treatment Goals Patient/Caregiver Goals Recover without requiring a manipulation PT-OP-C Subjective Start: 08/09/17 09:47 Freq: Status: Active Protocol: Document 09/13/17 08:19 [facility] (Rec: 09/13/17 10:58 [facility] [id number]) OP-PT Subjective Patient Comments Patient Comments Has started walking on the treadmill at home. PT-OP-G Mobility & Gait Start: 08/09/17 09:47 Freq: Status: Active Protocol: Document 08/09/17 10:34 [facility] (Rec: 08/09/17 15:10 [facility] [id number]) OP Gait Assessment Comments Gait Comments Step to with fwd lean & FWW PT-OP-K Range of Motion Start: 08/09/17 09:47 Freq: Status: Active Protocol: Document 09/13/17 08:19 [facility] (Rec: 09/13/17 10:58 [facility] [id number]) Knee Goniometric Range of Motion Knee Measured in Degrees Left Patient Position Supine Flexion Active (degrees) 100 Extension Active (degrees) 6 PT-OP-M Strength Start: 08/09/17 09:47 Freq: Status: Active Protocol: Document 08/09/17 10:34 [facility] (Rec: 08/09/17 15:10 [facility] [id number]) Hip Strength Hip Manual Muscle Testing Right Flexion (L2) 4 Good External Rotation 4- Good- Internal Rotation 4 Good Comments knee & ankle WNL R Left Flexion (L2) 3- Fair- External Rotation 3 Fair Internal Rotation 3 Fair Knee Strength Knee Manual Muscle Testing Left Flexion (S2) 3+ Fair+ Extension (L3) 2- Poor- PT-OP-Q Treatments Start: 08/09/17 09:47 Freq: Status: Active Protocol: Document 09/13/17 08:19 [facility] (Rec: 09/13/17 10:58 [facility] [id number]) Cardio Equipment Recumbent Bicycle Duration (Minutes) 7 Seat Position 12 Other rocking Therapeutic Exercises Standing Exercises 7 Standing Exercise Name squat Reps/Minutes 10 5 Standing Exercise Name lunge Reps/Minutes 10 Gait Training Gait Activity 1 Description up/down stairs Distance/Duration 5x Comments 6 in reciprocal Manual Therapy Treatment Soft Tissue Mobilization 2 Body Location quadriceps Mobilization Type Myofascial Release Intensity/Depth Moderate Body Position Supine Comments left 1 Body Location HS proximal & distal Mobilization Type Rolling Intensity/Depth Moderate Comments left FM with knee ext Joint Mobilizations 2 Joint tib fem Direction PA FM 1 Joint patellar Direction sup, inf, med Comments FM w/c/r quad set Neuro Re-Education Treatment Balance Activities 1 Details SLS Comments focus on neutral PT-OP-R Modalities Start: 08/09/17 09:47 Freq: Status: Active Protocol: Document 09/13/17 08:19 [facility] (Rec: 09/13/17 10:59 [facility] [id number]) Hot Pack/Cold Pack Treatment cryocuff Location L knee Patient Position Supine Treatment Duration (minutes) 10 Comments Leg elevated PT-OP-T Assessment and Plan Start: 08/09/17 09:47 Freq: Status: Active Protocol: Document 09/13/17 08:19 [facility] (Rec: 09/13/17 10:58 [facility] [id number]) Physical Therapy Assessment Goals Four Impairment LEFS Short Term Goal (STG) 35/80 STG Duration 09/09/47 Credit Collections Clerk Goal (LTG) 65/80 LTG Duration 10/09/17 Three Impairment gait Short Term Goal (STG) Pt will amb with good mechanics with SPC STG Duration 08/28/17 Credit Collections Clerk Goal (LTG) Pt will amb with good mechanics without AD LTG Duration 10/09/17 Two Impairment MMT Credit Collections Clerk Goal (LTG) 5/5 to allow pt to do normal functional & rec activities LTG Duration 10/09/17 One Impairment ROM Short Term Goal (STG) 10-100 STG Duration 09/08/17 Credit Collections Clerk Goal (LTG) 0-125 to allow pt to do stairs and functional activities without pain LTG Duration 08/09/17 Assessment Summary Assessment Pt improved to 5-107 after rx. Pt had difficulty with SLS and squat without touchdown to chair. Physical Therapy Plan Frequency and Duration Frequency of Treatment 2x/Week Duration of Treatment 2months Plan of Care Start Date 08/09/17 Plan of Care End Date 10/09/17 Next Visit Focus/Plan Next Note Type Treatment Note Next Visit Plan Cont to work on range
--- NOTE | 2017-10-03 08:38 | PT.OTN ---
Current Diagnoses Unilateral primary osteoarthritis, left knee (10/03/17) Physical Therapy Treatment Note PT-OP-A Visit Information Start: 08/09/17 09:47 Freq: Status: Active Protocol: Document 10/03/17 07:30 [facility] (Rec: 10/03/17 07:38 [facility] [id number]) Out-Patient Physical Therapy Visit Information Visit Information Visit Type Treatment Note Visit Note 30 PCY Visit Start Time 07:30 Visit Stop Time 08:15 Total Visit Minutes 55 Visit Number 11 Number of PRODUCE DEPARTMENT MANAGER Visits 0 PT-OP-B Current Condition Start: 08/09/17 09:47 Freq: Status: Active Protocol: Document 08/09/17 10:34 [facility] (Rec: 08/09/17 17:15 [facility] [id number]) Current Condition History of Current Condition History of Current Condition Pt had L partial knee replacement on 08/07/17 and has been taking percocet and visceral for pain. 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 Reports he played a lot of football when he was young, causing him to need his replacements. Treatment Goals Patient/Caregiver Goals Recover without requiring a manipulation PT-OP-C Subjective Start: 08/09/17 09:47 Freq: Status: Active Protocol: Document 10/03/17 07:30 [facility] (Rec: 10/03/17 07:48 AMB [id number]) OP-PT Subjective Patient Comments Patient Comments The patient is doing well, saw the MD who measured flexion at 108, wants him to be between 110-120 by week 12. PT-OP-G Mobility & Gait Start: 08/09/17 09:47 Freq: Status: Active Protocol: Document 08/09/17 10:34 [facility] (Rec: 08/09/17 15:10 [facility] [id number]) OP Gait Assessment Comments Gait Comments Step to with fwd lean & FWW PT-OP-K Range of Motion Start: 08/09/17 09:47 Freq: Status: Active Protocol: Document 09/13/17 08:19 [facility] (Rec: 09/13/17 10:58 [facility] [id number]) Knee Goniometric Range of Motion Knee Measured in Degrees Left Patient Position Supine Flexion Active (degrees) 100 Extension Active (degrees) 6 PT-OP-M Strength Start: 08/09/17 09:47 Freq: Status: Active Protocol: Document 08/09/17 10:34 [facility] (Rec: 08/09/17 15:10 [facility] [id number]) Hip Strength Hip Manual Muscle Testing Right Flexion (L2) 4 Good External Rotation 4- Good- Internal Rotation 4 Good Comments knee & ankle WNL R Left Flexion (L2) 3- Fair- External Rotation 3 Fair Internal Rotation 3 Fair Knee Strength Knee Manual Muscle Testing Left Flexion (S2) 3+ Fair+ Extension (L3) 2- Poor- PT-OP-Q Treatments Start: 08/09/17 09:47 Freq: Status: Active Protocol: Document 10/03/17 08:15 [facility] (Rec: 10/03/17 08:30 AMB [id number]) Cardio Equipment Recumbent Bicycle Duration (Minutes) 7 Seat Position 12 Other full revolution after 2-3 min Gym Equipment Shuttle Recovery Unilateral Squats Details 75# Shuttle Recovery Platform Stable Reps/Time 2x10 Bilateral Squats Resistance 75# Shuttle Recovery Platform Stable Reps/Time 3x10 Therapeutic Exercises Standing Exercises 3 Standing Exercise Name HEYDI Reps/Minutes 2' Comments follow stretch with 10x ankle DF 2 Standing Exercise Name hamstring stretch Comments at stairs Gait Training Gait Activity 1 Description up/down stairs Distance/Duration 5x Comments 6 in reciprocal Manual Therapy Treatment Soft Tissue Mobilization 3 Body Location L knee scar tissue (incisional region) Mobilization Type Other Intensity/Depth Moderate Body Position Supine 2 Body Location quadriceps Mobilization Type Myofascial Release Intensity/Depth Moderate Body Position Supine Comments left Joint Mobilizations 2 Joint tib fem Direction AP glide PT-OP-R Modalities Start: 08/09/17 09:47 Freq: Status: Active Protocol: Document 10/03/17 08:15 [facility] (Rec: 10/03/17 08:30 AMB [id number]) Hot Pack/Cold Pack Treatment cryocuff Location L knee Patient Position Supine Treatment Duration (minutes) 10 Comments Leg elevated PT-OP-T Assessment and Plan Start: 08/09/17 09:47 Freq: Status: Active Protocol: Document 10/03/17 08:15 [facility] (Rec: 10/03/17 08:30 AMB [id number]) Physical Therapy Assessment Assessment Summary Assessment Pt with PROM 5-105 today, pt with increased pain with overpressure. Physical Therapy Plan Frequency and Duration Frequency of Treatment 2x/Week Duration of Treatment 2months Plan of Care Start Date 08/09/17 Plan of Care End Date 10/09/17 Next Visit Focus/Plan Next Note Type Treatment Note Next Visit Plan Cont to work on range, refocus on HEP
--- NOTE | 2017-10-06 16:29 | PT.OTN ---
Current Diagnoses Unilateral primary osteoarthritis, left knee (10/06/17) Physical Therapy Treatment Note PT-OP-A Visit Information Start: 08/09/17 09:47 Freq: Status: Active Protocol: Document 10/06/17 07:30 [facility] (Rec: 10/06/17 07:38 AMB [id number]) Out-Patient Physical Therapy Visit Information Visit Information Visit Type Treatment Note Visit Note 30 PCY Visit Start Time 07:30 Visit Stop Time 08:15 Total Visit Minutes 55 Visit Number 12 Number of SUPERVISOR FORMING DEPARTMENT Visits 0 Evaluation Information Evaluation Date 08/09/17 PT-OP-B Current Condition Start: 08/09/17 09:47 Freq: Status: Active Protocol: Document 08/09/17 10:34 [facility] (Rec: 08/09/17 17:15 [facility] [id number]) Current Condition History of Current Condition History of Current Condition Pt had L partial knee replacement on 08/07/17 and has been taking percocet and visceral for pain. 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 Reports he played a lot of football when he was young, causing him to need his replacements. Treatment Goals Patient/Caregiver Goals Recover without requiring a manipulation PT-OP-C Subjective Start: 08/09/17 09:47 Freq: Status: Active Protocol: Document 10/06/17 07:30 [facility]B (Rec: 10/06/17 07:38 AMB [id number]) OP-PT Subjective Patient Comments Patient Comments Pt has been doing well. 10-15 min on the bike. PT-OP-G Mobility & Gait Start: 08/09/17 09:47 Freq: Status: Active Protocol: Document 08/09/17 10:34 [facility] (Rec: 08/09/17 15:10 [facility] [id number]) OP Gait Assessment Comments Gait Comments Step to with fwd lean & FWW PT-OP-K Range of Motion Start: 08/09/17 09:47 Freq: Status: Active Protocol: Document 10/06/17 07:30 AMB (Rec: 10/06/17 08:14 AMB [id number]) Knee Goniometric Range of Motion Knee Measured in Degrees Left Flexion Passive (degrees) 109 Extension Passive (degrees) 3 PT-OP-M Strength Start: 08/09/17 09:47 Freq: Status: Active Protocol: Document 08/09/17 10:34 [facility] (Rec: 08/09/17 15:10 [facility] [id number]) Hip Strength Hip Manual Muscle Testing Right Flexion (L2) 4 Good External Rotation 4- Good- Internal Rotation 4 Good Comments knee & ankle WNL R Left Flexion (L2) 3- Fair- External Rotation 3 Fair Internal Rotation 3 Fair Knee Strength Knee Manual Muscle Testing Left Flexion (S2) 3+ Fair+ Extension (L3) 2- Poor- PT-OP-Q Treatments Start: 08/09/17 09:47 Freq: Status: Active Protocol: Document 10/06/17 07:30 [facility]B (Rec: 10/06/17 07:49 AMB [id number]) Cardio Equipment Recumbent Bicycle Duration (Minutes) 7 Resistance 5 Seat Position 10 Other full revolution Therapeutic Exercises Supine Exercises 8 Supine Exercise Name quad stretch Reps/Minutes 30x2 Standing Exercises 3 Standing Exercise Name HEYDI Reps/Minutes 2' Comments follow stretch with 10x ankle DF 2 Standing Exercise Name hamstring stretch Comments at stairs Gait Training Gait Activity 1 Description up/down stairs Comments 2 flights Manual Therapy Treatment Soft Tissue Mobilization 3 Body Location L knee scar tissue (incisional region) Mobilization Type Other Intensity/Depth Moderate Body Position Supine 2 Body Location quadriceps Mobilization Type Myofascial Release Intensity/Depth Moderate Body Position Supine Comments left Joint Mobilizations 2 Joint tib fem Direction AP glide 1 Joint patellar Direction sup, inf, med PT-OP-R Modalities Start: 08/09/17 09:47 Freq: Status: Active Protocol: Document 10/06/17 07:30 [facility] (Rec: 10/06/17 08:10 AMB [id number]) Hot Pack/Cold Pack Treatment cryocuff Location L knee Patient Position Supine Treatment Duration (minutes) 10 Comments Leg elevated PT-OP-T Assessment and Plan Start: 08/09/17 09:47 Freq: Status: Active Protocol: Document 10/06/17 07:38 AMB (Rec: 10/06/17 07:39 AMB [id number]) Physical Therapy Assessment Goals Four Impairment LEFS Short Term Goal (STG) 35/80 STG Duration 10/31/17 Long-Term Goal (LTG) 65/80 LTG Duration 12/01/17 Three Impairment gait Short Term Goal (STG) Pt will amb with good mechanics with SPC STG Duration MET Long-Term Goal (LTG) Pt will amb with good mechanics without AD LTG Duration MET Two Impairment MMT Long-Term Goal (LTG) 5/5 to allow pt to do normal functional & rec activities LTG Duration 12/01/17 One Impairment ROM Short Term Goal (STG) 10-100 STG Duration MET Logging Equipment Operator Goal (LTG) 0-125 to allow pt to do stairs and functional activities without pain LTG Duration 12/01/17 Assessment Summary Assessment Pt seen for 12 visits (2 week lapse due to of his brother). Pt with good progression of extension today , flexion continues to be limited but is progressing slowly. Pt's pain has been decreasing and his edema is better. Scar tissue very tight at distal aspect of scar . Functional movement (sit to stand, gait, stairs) improving well. Physical Therapy Plan Frequency and Duration Frequency of Treatment 2x/Week Duration of Treatment 8 weeks Plan of Care Start Date 10/06/17 Plan of Care End Date 12/01/17 Next Visit Focus/Plan Next Note Type Treatment Note Next Visit Plan Progress scar tissue mobilization
--- NOTE | 2017-10-06 16:30 | PT.OPPOC ---
Current Diagnoses Unilateral primary osteoarthritis, left knee (10/06/17) Provider Visit Care Team Role Provider Type Stefan Saravia MD Attending Provider Physician Family Provider Primary Care Provider Specialty: Internal Medicine Address: [address] [place] [address], [id number] Email: [email or web address] Plan Of Care PT-OP-T Assessment and Plan Start: 08/09/17 09:47 Freq: Status: Active Protocol: Document 10/06/17 07:38 AMB (Rec: 10/06/17 07:39 AMB [id number]) Physical Therapy Assessment Goals Four Impairment LEFS Short Term Goal (STG) 35/80 STG Duration 10/31/17 Maple Sugar Maker Goal (LTG) 65/80 LTG Duration 12/01/17 Three Impairment gait Short Term Goal (STG) Pt will amb with good mechanics with SPC STG Duration MET Maple Sugar Maker Goal (LTG) Pt will amb with good mechanics without AD LTG Duration MET Two Impairment MMT Shelter Goal (LTG) 5/5 to allow pt to do normal functional & rec activities LTG Duration 12/01/17 One Impairment ROM Short Term Goal (STG) 10-100 STG Duration MET Maple Sugar Maker Goal (LTG) 0-125 to allow pt to do stairs and functional activities without pain LTG Duration 12/01/17 Assessment Summary Assessment Pt seen for 12 visits (2 week lapse due to of his brother). Pt with good progression of extension today , flexion continues to be limited but is progressing slowly. Pt's pain has been decreasing and his edema is better. Scar tissue very tight at distal aspect of scar . Functional movement (sit to stand, gait, stairs) improving well. Physical Therapy Plan Frequency and Duration Frequency of Treatment 2x/Week Duration of Treatment 8 weeks Plan of Care Start Date 10/06/17 Plan of Care End Date 12/01/17 Next Visit Focus/Plan Next Note Type Treatment Note Next Visit Plan Progress scar tissue mobilization Plan of Care Dates Plan of Care Start Date 10/06/17 Plan of Care End Date 12/01/17 Please Sign and Return: I have reviewed this Plan of Care and certify that the skilled therapy services above are required to meet the patient?s needs. Physician Signature Date Printed Name and Credentials Clinical Instructor Signature Printed Name and Credentials
--- NOTE | 2017-10-10 08:18 | PT.OTN ---
Current Diagnoses Unilateral primary osteoarthritis, left knee (10/10/17) Physical Therapy Treatment Note PT-OP-A Visit Information Start: 08/09/17 09:47 Freq: Status: Active Protocol: Document 10/10/17 07:30 AMB (Rec: 10/10/17 07:30 AMB [email or web address]) Out-Patient Physical Therapy Visit Information Visit Information Visit Type Treatment Note Visit Note 30 PCY Visit Start Time 07:30 Visit Stop Time 08:15 Total Visit Minutes 55 Visit Number 13 Number of ER TECH Visits 0 Evaluation Information Evaluation Date 08/09/17 PT-OP-B Current Condition Start: 08/09/17 09:47 Freq: Status: Active Protocol: Document 08/09/17 10:34 [facility] (Rec: 08/09/17 17:15 [facility] [id number]) Current Condition History of Current Condition History of Current Condition Pt had L partial knee replacement on 08/07/17 and has been taking percocet and visceral for pain. 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 Reports he played a lot of football when he was young, causing him to need his replacements. Treatment Goals Patient/Caregiver Goals Recover without requiring a manipulation PT-OP-C Subjective Start: 08/09/17 09:47 Freq: Status: Active Protocol: Document 10/10/17 07:30 AMB (Rec: 10/10/17 07:38 AMB [id number]) OP-PT Subjective Patient Comments Patient Comments Pt states knee was hurting after the weekend of cleaning out his brothers house. PT-OP-G Mobility & Gait Start: 08/09/17 09:47 Freq: Status: Active Protocol: Document 08/09/17 10:34 [facility] (Rec: 08/09/17 15:10 [facility] [id number]) OP Gait Assessment Comments Gait Comments Step to with fwd lean & FWW PT-OP-K Range of Motion Start: 08/09/17 09:47 Freq: Status: Active Protocol: Document 10/06/17 07:30 AMB (Rec: 10/06/17 08:14 AMB [email or web address]) Knee Goniometric Range of Motion Knee Measured in Degrees Left Flexion Passive (degrees) 109 Extension Passive (degrees) 3 PT-OP-M Strength Start: 08/09/17 09:47 Freq: Status: Active Protocol: Document 08/09/17 10:34 [facility] (Rec: 08/09/17 15:10 [facility] [id number]) Hip Strength Hip Manual Muscle Testing Right Flexion (L2) 4 Good External Rotation 4- Good- Internal Rotation 4 Good Comments knee & ankle WNL R Left Flexion (L2) 3- Fair- External Rotation 3 Fair Internal Rotation 3 Fair Knee Strength Knee Manual Muscle Testing Left Flexion (S2) 3+ Fair+ Extension (L3) 2- Poor- PT-OP-Q Treatments Start: 08/09/17 09:47 Freq: Status: Active Protocol: Document 10/10/17 07:30 AMB (Rec: 10/10/17 07:42 AMB [id number]) Cardio Equipment Recumbent Bicycle Duration (Minutes) 7 Resistance 5 Seat Position 9 Therapeutic Exercises Supine Exercises 8 Supine Exercise Name quad stretch Reps/Minutes 30x2 Prone Exercises 1 Prone Exercise Name yadiel pose Standing Exercises 7 Standing Exercise Name squat Reps/Minutes 10 5 Standing Exercise Name lunge Reps/Minutes 10 3 Standing Exercise Name HEYDI Reps/Minutes 2' Comments follow stretch with 10x ankle DF 2 Standing Exercise Name hamstring stretch Comments at stairs Manual Therapy Treatment Soft Tissue Mobilization 3 Body Location L knee scar tissue (incisional region) Mobilization Type Other Intensity/Depth Moderate Body Position Supine 2 Body Location quadriceps Mobilization Type Myofascial Release Intensity/Depth Moderate Body Position Supine Comments left Joint Mobilizations 2 Joint tib fem Direction AP glide 1 Joint patellar Direction sup, inf, med PT-OP-R Modalities Start: 08/09/17 09:47 Freq: Status: Active Protocol: Document 10/10/17 07:30 AMB (Rec: 10/10/17 08:07 AMB [id number]) Hot Pack/Cold Pack Treatment cryocuff Location L knee Patient Position Supine Treatment Duration (minutes) 10 Comments Leg elevated PT-OP-T Assessment and Plan Start: 08/09/17 09:47 Freq: Status: Active Protocol: Document 10/10/17 07:30 AMB (Rec: 10/10/17 08:06 AMB [id number]) Physical Therapy Assessment Assessment Summary Assessment Pt is progressing with ROM, extension improving, but still limited in flexion Physical Therapy Plan Next Visit Focus/Plan Next Note Type Treatment Note Next Visit Plan Progress ROM/ strengthening, safe gym exercises.
--- NOTE | 2017-10-13 08:15 | PT.OTN ---
Current Diagnoses Unilateral primary osteoarthritis, left knee (10/13/17) Physical Therapy Treatment Note PT-OP-A Visit Information Start: 08/09/17 09:47 Freq: Status: Active Protocol: Document 10/13/17 07:30 AMB (Rec: 10/13/17 07:35 AMB [id number]) Out-Patient Physical Therapy Visit Information Visit Information Visit Type Treatment Note Visit Note 30 PCY Visit Start Time 07:30 Visit Stop Time 08:15 Total Visit Minutes 55 Visit Number 14 Number of RIVER RAT Visits 0 Evaluation Information Evaluation Date 08/09/17 PT-OP-B Current Condition Start: 08/09/17 09:47 Freq: Status: Active Protocol: Document 08/09/17 10:34 [facility] (Rec: 08/09/17 17:15 [facility] [id number]) Current Condition History of Current Condition History of Current Condition Pt had L partial knee replacement on 08/07/17 and has been taking percocet and visceral for pain. 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 Reports he played a lot of football when he was young, causing him to need his replacements. Treatment Goals Patient/Caregiver Goals Recover without requiring a manipulation PT-OP-C Subjective Start: 08/09/17 09:47 Freq: Status: Active Protocol: Document 10/13/17 07:30 AMB (Rec: 10/13/17 07:40 AMB [id number]) OP-PT Subjective Patient Comments Patient Comments Pt reports he is doing well, mowed the lawn yesterday and that went well. PT-OP-G Mobility & Gait Start: 08/09/17 09:47 Freq: Status: Active Protocol: Document 08/09/17 10:34 [facility] (Rec: 08/09/17 15:10 [facility] [id number]) OP Gait Assessment Comments Gait Comments Step to with fwd lean & FWW PT-OP-K Range of Motion Start: 08/09/17 09:47 Freq: Status: Active Protocol: Document 10/13/17 07:30 AMB (Rec: 10/13/17 08:15 AMB [email or web address]) Knee Goniometric Range of Motion Knee Measured in Degrees Left Flexion Passive (degrees) 105 Extension Passive (degrees) 2 PT-OP-M Strength Start: 08/09/17 09:47 Freq: Status: Active Protocol: Document 08/09/17 10:34 [facility] (Rec: 08/09/17 15:10 [facility] [id number]) Hip Strength Hip Manual Muscle Testing Right Flexion (L2) 4 Good External Rotation 4- Good- Internal Rotation 4 Good Comments knee & ankle WNL R Left Flexion (L2) 3- Fair- External Rotation 3 Fair Internal Rotation 3 Fair Knee Strength Knee Manual Muscle Testing Left Flexion (S2) 3+ Fair+ Extension (L3) 2- Poor- PT-OP-Q Treatments Start: 08/09/17 09:47 Freq: Status: Active Protocol: Document 10/13/17 07:30 AMB (Rec: 10/13/17 07:39 AMB [id number]) Cardio Equipment Recumbent Bicycle Duration (Minutes) 7 Seat Position 10, 9 Gym Equipment Shuttle Recovery Unilateral Squats Details 100# Shuttle Recovery Platform Stable Reps/Time 3x10 Therapeutic Exercises Supine Exercises 8 Supine Exercise Name quad stretch Reps/Minutes 30x2 Prone Exercises 1 Prone Exercise Name yadiel pose Standing Exercises 7 Standing Exercise Name squat Reps/Minutes 10 5 Standing Exercise Name lunge Reps/Minutes 10 3 Standing Exercise Name HEYDI Reps/Minutes 2' Comments follow stretch with 10x ankle DF 2 Standing Exercise Name hamstring stretch Comments at stairs Manual Therapy Treatment Soft Tissue Mobilization 3 Body Location L knee scar tissue (incisional region) Mobilization Type Other Intensity/Depth Moderate Body Position Supine 2 Body Location quadriceps Mobilization Type Myofascial Release Intensity/Depth Moderate Body Position Supine Comments left Joint Mobilizations 2 Joint tib fem Direction AP glide PT-OP-R Modalities Start: 08/09/17 09:47 Freq: Status: Active Protocol: Document 10/13/17 07:30 AMB (Rec: 10/13/17 07:48 AMB [id number]) Hot Pack/Cold Pack Treatment cryocuff Location L knee Patient Position Supine Treatment Duration (minutes) 10 Comments Leg elevated PT-OP-T Assessment and Plan Start: 08/09/17 09:47 Freq: Status: Active Protocol: Document 10/13/17 07:30 AMB (Rec: 10/13/17 08:15 AMB [email or web address]) Physical Therapy Assessment Assessment Summary Assessment Pt progressing well, still tight in calf, posterior knee, scar. Physical Therapy Plan Next Visit Focus/Plan Next Note Type Treatment Note Next Visit Plan Progress ROM, scar tissue, gym exercises
--- NOTE | 2017-10-20 09:05 | PT.OTN ---
Current Diagnoses Unilateral primary osteoarthritis, left knee (10/20/17) Physical Therapy Treatment Note PT-OP-A Visit Information Start: 08/09/17 09:47 Freq: Status: Active Protocol: Document 10/20/17 08:20 [facility] (Rec: 10/20/17 09:05 [facility] [id number]) Out-Patient Physical Therapy Visit Information Visit Information Visit Type Treatment Note Visit Note 30 PCY Visit Start Time 08:20 Visit Stop Time 09:10 Total Visit Minutes 50 Visit Number 15 Number of LOADING MANAGER Visits 0 PT-OP-B Current Condition Start: 08/09/17 09:47 Freq: Status: Active Protocol: Document 08/09/17 10:34 [facility] (Rec: 08/09/17 17:15 [facility] [id number]) Current Condition History of Current Condition History of Current Condition Pt had L partial knee replacement on 08/07/17 and has been taking percocet and visceral for pain. 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 Reports he played a lot of football when he was young, causing him to need his replacements. Treatment Goals Patient/Caregiver Goals Recover without requiring a manipulation PT-OP-C Subjective Start: 08/09/17 09:47 Freq: Status: Active Protocol: Document 10/20/17 08:20 [facility] (Rec: 10/20/17 09:05 [facility] [id number]) OP-PT Subjective Patient Comments Patient Comments Reports this week he hasn't been great about exercises d/t schedule. PT-OP-G Mobility & Gait Start: 08/09/17 09:47 Freq: Status: Active Protocol: Document 08/09/17 10:34 [facility] (Rec: 08/09/17 15:10 [facility] [id number]) OP Gait Assessment Comments Gait Comments Step to with fwd lean & FWW PT-OP-K Range of Motion Start: 08/09/17 09:47 Freq: Status: Active Protocol: Document 10/13/17 07:30 AMB (Rec: 10/13/17 08:15 AMB [email or web address]) Knee Goniometric Range of Motion Knee Measured in Degrees Left Flexion Passive (degrees) 105 Extension Passive (degrees) 2 PT-OP-M Strength Start: 08/09/17 09:47 Freq: Status: Active Protocol: Document 08/09/17 10:34 [facility] (Rec: 08/09/17 15:10 [facility] [id number]) Hip Strength Hip Manual Muscle Testing Right Flexion (L2) 4 Good External Rotation 4- Good- Internal Rotation 4 Good Comments knee & ankle WNL R Left Flexion (L2) 3- Fair- External Rotation 3 Fair Internal Rotation 3 Fair Knee Strength Knee Manual Muscle Testing Left Flexion (S2) 3+ Fair+ Extension (L3) 2- Poor- PT-OP-Q Treatments Start: 08/09/17 09:47 Freq: Status: Active Protocol: Document 10/20/17 08:20 [facility] (Rec: 10/20/17 09:05 [facility] [id number]) Cardio Equipment Recumbent Bicycle Duration (Minutes) 7 Resistance 1-3 Seat Position 10, 9 Gym Equipment Cable Column (Body Solid) Leg Curl Details B Resistance 7 Reps/Time 2x15 Leg Extension Details single leg Resistance 1 Reps/Time 2x15 Shuttle Recovery Unilateral Squats Details 75# Shuttle Recovery Platform Stable Reps/Time 2x15 Therapeutic Exercises Standing Exercises 7 Standing Exercise Name squat Reps/Minutes 10 6 Standing Exercise Name wall squat Reps/Minutes 15 Comments w/tball at wall and chair under 5 Standing Exercise Name lunge Reps/Minutes 10 Manual Therapy Treatment Soft Tissue Mobilization 3 Body Location L knee scar tissue (incisional region) Mobilization Type Myofascial Release Other Intensity/Depth Moderate Body Position Supine Joint Mobilizations 3 Joint patella Direction sup, inf & med PT-OP-R Modalities Start: 08/09/17 09:47 Freq: Status: Active Protocol: Document 10/20/17 08:20 [facility] (Rec: 10/20/17 09:05 [facility] [id number]) Hot Pack/Cold Pack Treatment cryocuff Location L knee Patient Position Supine Treatment Duration (minutes) 10 Comments Leg elevated PT-OP-T Assessment and Plan Start: 08/09/17 09:47 Freq: Status: Active Protocol: Document 10/20/17 08:20 [facility] (Rec: 10/20/17 09:05 [facility] [id number]) Physical Therapy Assessment Goals Four Impairment LEFS Short Term Goal (STG) 35/80 STG Duration 10/31/17 Hvac Installer Goal (LTG) 65/80 LTG Duration 12/01/17 Three Impairment gait Short Term Goal (STG) Pt will amb with good mechanics with SPC STG Duration MET Hvac Installer Goal (LTG) Pt will amb with good mechanics without AD LTG Duration MET Two Impairment MMT Half-Way Goal (LTG) 5/5 to allow pt to do normal functional & rec activities LTG Duration 12/01/17 One Impairment ROM Short Term Goal (STG) 10-100 STG Duration MET Half-Way Goal (LTG) 0-125 to allow pt to do stairs and functional activities without pain LTG Duration 12/01/17 Assessment Summary Assessment Pt required cueing for breathing and form with exercises. He cont to have significant quad weakness. Physical Therapy Plan Frequency and Duration Frequency of Treatment 2x/Week Duration of Treatment 8 weeks Plan of Care Start Date 10/06/17 Plan of Care End Date 12/01/17 Next Visit Focus/Plan Next Note Type Treatment Note Next Visit Plan Progress ROM, scar tissue, gym exercises
--- NOTE | 2017-10-24 09:02 | PT.OTN ---
Current Diagnoses Unilateral primary osteoarthritis, left knee (10/24/17) Physical Therapy Treatment Note PT-OP-A Visit Information Start: 08/09/17 09:47 Freq: Status: Active Protocol: Document 10/24/17 08:09 [facility] (Rec: 10/24/17 09:01 [facility] [id number]) Out-Patient Physical Therapy Visit Information Visit Information Visit Type Treatment Note Visit Note 30 PCY Visit Start Time 08:15 Visit Stop Time 09:10 Total Visit Minutes 55 Visit Number 16 Number of MOLECULAR BIOLOGY PROFESSOR Visits 0 PT-OP-B Current Condition Start: 08/09/17 09:47 Freq: Status: Active Protocol: Document 08/09/17 10:34 [facility] (Rec: 08/09/17 17:15 [facility] [id number]) Current Condition History of Current Condition History of Current Condition Pt had L partial knee replacement on 08/07/17 and has been taking percocet and visceral for pain. 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 Reports he played a lot of football when he was young, causing him to need his replacements. Treatment Goals Patient/Caregiver Goals Recover without requiring a manipulation PT-OP-C Subjective Start: 08/09/17 09:47 Freq: Status: Active Protocol: Document 10/24/17 08:09 [facility] (Rec: 10/24/17 09:01 [facility] [id number]) OP-PT Subjective Patient Comments Patient Comments Knee feels better today. Said he plans to join the pool gym. PT-OP-G Mobility & Gait Start: 08/09/17 09:47 Freq: Status: Active Protocol: Document 08/09/17 10:34 [facility] (Rec: 08/09/17 15:10 [facility] [id number]) OP Gait Assessment Comments Gait Comments Step to with fwd lean & FWW PT-OP-K Range of Motion Start: 08/09/17 09:47 Freq: Status: Active Protocol: Document 10/13/17 07:30 AMB (Rec: 10/13/17 08:15 AMB [email or web address]) Knee Goniometric Range of Motion Knee Measured in Degrees Left Flexion Passive (degrees) 105 Extension Passive (degrees) 2 PT-OP-M Strength Start: 08/09/17 09:47 Freq: Status: Active Protocol: Document 08/09/17 10:34 [facility] (Rec: 08/09/17 15:10 [facility] [id number]) Hip Strength Hip Manual Muscle Testing Right Flexion (L2) 4 Good External Rotation 4- Good- Internal Rotation 4 Good Comments knee & ankle WNL R Left Flexion (L2) 3- Fair- External Rotation 3 Fair Internal Rotation 3 Fair Knee Strength Knee Manual Muscle Testing Left Flexion (S2) 3+ Fair+ Extension (L3) 2- Poor- PT-OP-Q Treatments Start: 08/09/17 09:47 Freq: Status: Active Protocol: Document 10/24/17 08:09 [facility] (Rec: 10/24/17 09:01 [facility] [id number]) Cardio Equipment Recumbent Bicycle Duration (Minutes) 7 Resistance 1-3 Seat Position 10, 9 Rowing Machine Duration (Minutes) 2 Gym Equipment Cable Column (Body Solid) Hip Adduction Resistance 5 Reps/Time 20 Hip Abduction Resistance 5 Reps/Time 20 Therapeutic Exercises Standing Exercises 7 Standing Exercise Name squat Reps/Minutes 10 Comments w/chair behind & counter in front 5 Standing Exercise Name lunge walking Reps/Minutes 3x20ft 4 Standing Exercise Name single leg heel raise Reps/Minutes 10 1 Standing Exercise Name sidestep Equipment Used Lvl 3 band Reps/Minutes 2x20ft Manual Therapy Treatment Soft Tissue Mobilization 3 Body Location L knee scar tissue (incisional region) Mobilization Type Myofascial Release Other Intensity/Depth Moderate Body Position Supine Joint Mobilizations 3 Joint patella Direction sup, inf & med 2 Joint tib fem Direction AP glide on femur & tibia FM 1 Joint tib fib Direction AP FM PT-OP-R Modalities Start: 08/09/17 09:47 Freq: Status: Active Protocol: Document 10/24/17 08:09 [facility] (Rec: 10/24/17 09:02 [facility] [id number]) Hot Pack/Cold Pack Treatment cryocuff Location L knee Patient Position Supine Treatment Duration (minutes) 10 Comments Leg elevated PT-OP-T Assessment and Plan Start: 08/09/17 09:47 Freq: Status: Active Protocol: Document 10/24/17 08:09 [facility] (Rec: 10/24/17 09:01 [facility] [id number]) Physical Therapy Assessment Goals Four Impairment LEFS Short Term Goal (STG) 35/80 STG Duration 10/31/17 Care Home Goal (LTG) 65/80 LTG Duration 12/01/17 Three Impairment gait Short Term Goal (STG) Pt will amb with good mechanics with SPC STG Duration MET Him Assistant Goal (LTG) Pt will amb with good mechanics without AD LTG Duration MET Two Impairment MMT Care Home Goal (LTG) 5/5 to allow pt to do normal functional & rec activities LTG Duration 12/01/17 One Impairment ROM Short Term Goal (STG) 10-100 STG Duration MET Him Assistant Goal (LTG) 0-125 to allow pt to do stairs and functional activities without pain LTG Duration 12/01/17 Assessment Summary Assessment Pt improved from lacking 7 deg ext to about 2 deg about mobs and had less pain in extended position. After exercises, but before manual, pt had 110 deg flex. He is improving with his strength & overall exercise tolerance. Physical Therapy Plan Frequency and Duration Frequency of Treatment 2x/Week Duration of Treatment 8 weeks Plan of Care Start Date 10/06/17 Plan of Care End Date 12/01/17 Next Visit Focus/Plan Next Note Type Treatment Note Next Visit Plan Progress ROM, scar tissue, gym exercises
--- NOTE | 2017-10-27 09:19 | PT.OTN ---
Current Diagnoses Unilateral primary osteoarthritis, left knee (10/27/17) Physical Therapy Treatment Note PT-OP-A Visit Information Start: 08/09/17 09:47 Freq: Status: Active Protocol: Document 10/27/17 08:25 [facility] (Rec: 10/27/17 09:18 [facility] [id number]) Out-Patient Physical Therapy Visit Information Visit Information Visit Type Treatment Note Visit Note 30 PCY Visit Start Time 08:15 Visit Stop Time 09:10 Total Visit Minutes 55 Visit Number 17 Number of ASSESSMENT MANAGER Visits 0 PT-OP-B Current Condition Start: 08/09/17 09:47 Freq: Status: Active Protocol: Document 08/09/17 10:34 [facility] (Rec: 08/09/17 17:15 [facility] [id number]) Current Condition History of Current Condition History of Current Condition Pt had L partial knee replacement on 08/07/17 and has been taking percocet and visceral for pain. 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 Reports he played a lot of football when he was young, causing him to need his replacements. Treatment Goals Patient/Caregiver Goals Recover without requiring a manipulation PT-OP-C Subjective Start: 08/09/17 09:47 Freq: Status: Active Protocol: Document 10/27/17 08:25 [facility] (Rec: 10/27/17 09:18 [facility] [id number]) OP-PT Subjective Patient Comments Patient Comments Reports he went to the gym yesterday and did bike and lifting. PT-OP-G Mobility & Gait Start: 08/09/17 09:47 Freq: Status: Active Protocol: Document 08/09/17 10:34 [facility] (Rec: 08/09/17 15:10 [facility] [id number]) OP Gait Assessment Comments Gait Comments Step to with fwd lean & FWW PT-OP-K Range of Motion Start: 08/09/17 09:47 Freq: Status: Active Protocol: Document 10/13/17 07:30 AMB (Rec: 10/13/17 08:15 AMB [email or web address]) Knee Goniometric Range of Motion Knee Measured in Degrees Left Flexion Passive (degrees) 105 Extension Passive (degrees) 2 PT-OP-M Strength Start: 08/09/17 09:47 Freq: Status: Active Protocol: Document 08/09/17 10:34 [facility] (Rec: 08/09/17 15:10 [facility] [id number]) Hip Strength Hip Manual Muscle Testing Right Flexion (L2) 4 Good External Rotation 4- Good- Internal Rotation 4 Good Comments knee & ankle WNL R Left Flexion (L2) 3- Fair- External Rotation 3 Fair Internal Rotation 3 Fair Knee Strength Knee Manual Muscle Testing Left Flexion (S2) 3+ Fair+ Extension (L3) 2- Poor- PT-OP-Q Treatments Start: 08/09/17 09:47 Freq: Status: Active Protocol: Document 10/27/17 08:25 [facility] (Rec: 10/27/17 09:18 [facility] [id number]) Cardio Equipment Recumbent Bicycle Duration (Minutes) 7 Resistance 1-3 Seat Position 10, 9 Therapeutic Exercises Standing Exercises 6 Standing Exercise Name sidestep squat Resistance green Reps/Minutes 20ft 5 Standing Exercise Name lunge walking Reps/Minutes 3x20ft 2 Standing Exercise Name fwd/back walk Equipment Used green tband Reps/Minutes 2x20ft 1 Standing Exercise Name sidestep Equipment Used Lvl 3 band Reps/Minutes 2x20ft Manual Therapy Treatment Soft Tissue Mobilization 4 Body Location HS Mobilization Type Rolling 3 Body Location L knee scar tissue (incisional region) Mobilization Type Myofascial Release Other Intensity/Depth Moderate Body Position Supine Joint Mobilizations 3 Joint patella Direction sup, inf & med 1 Joint tib fib Direction AP FM Manual Techniques 1 Type HS stretch 3 planes c/r PT-OP-R Modalities Start: 08/09/17 09:47 Freq: Status: Active Protocol: Document 10/27/17 08:25 [facility] (Rec: 10/27/17 09:18 [facility] [id number]) Hot Pack/Cold Pack Treatment cryocuff Location L knee Patient Position Supine Treatment Duration (minutes) 10 Comments Leg elevated PT-OP-T Assessment and Plan Start: 08/09/17 09:47 Freq: Status: Active Protocol: Document 10/27/17 08:25 [facility] (Rec: 10/27/17 09:18 [facility] [id number]) Physical Therapy Assessment Goals Four Impairment LEFS Short Term Goal (STG) 35/80 STG Duration 10/31/17 Microsoft Crm Developer Goal (LTG) 65/80 LTG Duration 12/01/17 Three Impairment gait Short Term Goal (STG) Pt will amb with good mechanics with SPC STG Duration MET Penitentiary Goal (LTG) Pt will amb with good mechanics without AD LTG Duration MET Two Impairment MMT Microsoft Crm Developer Goal (LTG) 5/5 to allow pt to do normal functional & rec activities LTG Duration 12/01/17 One Impairment ROM Short Term Goal (STG) 10-100 STG Duration MET Microsoft Crm Developer Goal (LTG) 0-125 to allow pt to do stairs and functional activities without pain LTG Duration 12/01/17 Assessment Summary Assessment Pt cont to have significant tightness in HS & overall dec ROM, but did start lacking 6 with 113 flex today. He is able to do strengthening with fatigue, but good form with cueing. Physical Therapy Plan Frequency and Duration Frequency of Treatment 2x/Week Duration of Treatment 8 weeks Plan of Care Start Date 10/06/17 Plan of Care End Date 12/01/17 Next Visit Focus/Plan Next Note Type Treatment Note Next Visit Plan Progress ROM, scar tissue, strength
--- NOTE | 2017-11-14 17:35 | PT.OTN ---
Current Diagnoses Unilateral primary osteoarthritis, left knee (11/14/17) Physical Therapy Treatment Note PT-OP-A Visit Information Start: 08/09/17 09:47 Freq: Status: Active Protocol: Document 11/14/17 16:45 DCW (Rec: 11/14/17 17:32 DC [id number]) Out-Patient Physical Therapy Visit Information Visit Information Visit Type Treatment Note Visit Note 30 PCY Visit Start Time 16:45 Visit Stop Time 17:30 Total Visit Minutes 45 Visit Number 18 Number of WILDLIFE AND GAME PROTECTOR Visits 0 Evaluation Information Evaluation Date 08/09/17 PT-OP-B Current Condition Start: 08/09/17 09:47 Freq: Status: Active Protocol: Document 08/09/17 10:34 [facility] (Rec: 08/09/17 17:15 [facility] [id number]) Current Condition History of Current Condition History of Current Condition Pt had L partial knee replacement on 08/07/17 and has been taking percocet and visceral for pain. 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 Reports he played a lot of football when he was young, causing him to need his replacements. Treatment Goals Patient/Caregiver Goals Recover without requiring a manipulation PT-OP-C Subjective Start: 08/09/17 09:47 Freq: Status: Active Protocol: Document 11/14/17 16:45 DCW (Rec: 11/14/17 17:32 [facility] [id number]) OP-PT Subjective Patient Comments Patient Comments Pt reports everything seems to be going well, he has been going to the gym frequently. PT-OP-G Mobility & Gait Start: 08/09/17 09:47 Freq: Status: Active Protocol: Document 08/09/17 10:34 [facility] (Rec: 08/09/17 15:10 [facility] [id number]) OP Gait Assessment Comments Gait Comments Step to with fwd lean & FWW PT-OP-K Range of Motion Start: 08/09/17 09:47 Freq: Status: Active Protocol: Document 11/14/17 16:45 DCW (Rec: 11/14/17 17:32 DCW [id number]) Knee Goniometric Range of Motion Knee Measured in Degrees Left Patient Position Supine Flexion Active (degrees) 114 Extension Active (degrees) 4 PT-OP-M Strength Start: 08/09/17 09:47 Freq: Status: Active Protocol: Document 08/09/17 10:34 [facility] (Rec: 08/09/17 15:10 [facility] [id number]) Hip Strength Hip Manual Muscle Testing Right Flexion (L2) 4 Good External Rotation 4- Good- Internal Rotation 4 Good Comments knee & ankle WNL R Left Flexion (L2) 3- Fair- External Rotation 3 Fair Internal Rotation 3 Fair Knee Strength Knee Manual Muscle Testing Left Flexion (S2) 3+ Fair+ Extension (L3) 2- Poor- PT-OP-Q Treatments Start: 08/09/17 09:47 Freq: Status: Active Protocol: Document 11/14/17 16:45 DCW (Rec: 11/14/17 17:32 DCW [id number]) Cardio Equipment Recumbent Bicycle Duration (Minutes) 8 Resistance 4 Seat Position 10, 9 Therapeutic Exercises Standing Exercises 6 Standing Exercise Name sidestep squat Resistance green Reps/Minutes 20ft 5 Standing Exercise Name lunge walking Reps/Minutes 3x20ft 2 Standing Exercise Name fwd/back walk Equipment Used green tband Reps/Minutes 2x20ft 1 Standing Exercise Name sidestep Equipment Used Lvl 3 band Reps/Minutes 2x20ft Manual Therapy Treatment Soft Tissue Mobilization 4 Body Location HS Mobilization Type Rolling 3 Body Location L knee scar tissue (incisional region) Mobilization Type Myofascial Release Other Intensity/Depth Moderate Body Position Supine Joint Mobilizations 3 Joint patella Direction sup, inf & med 1 Joint tib fib Direction AP FM Manual Techniques 1 Type HS stretch 3 planes c/r PT-OP-R Modalities Start: 08/09/17 09:47 Freq: Status: Active Protocol: Document 10/27/17 08:25 [facility] (Rec: 10/27/17 09:18 [facility] [id number]) Hot Pack/Cold Pack Treatment cryocuff Location L knee Patient Position Supine Treatment Duration (minutes) 10 Comments Leg elevated PT-OP-T Assessment and Plan Start: 08/09/17 09:47 Freq: Status: Active Protocol: Document 11/14/17 16:45 DCW (Rec: 11/14/17 17:32 DCW [id number]) Physical Therapy Assessment Goals Four Impairment LEFS Short Term Goal (STG) 35/80 STG Duration 10/31/17 Director Industrial Nursing Goal (LTG) 65/80 LTG Duration 12/01/17 Three Impairment gait Short Term Goal (STG) Pt will amb with good mechanics with SPC STG Duration MET Director Industrial Nursing Goal (LTG) Pt will amb with good mechanics without AD LTG Duration MET Two Impairment MMT Director Industrial Nursing Goal (LTG) 5/5 to allow pt to do normal functional & rec activities LTG Duration 12/01/17 One Impairment ROM Short Term Goal (STG) 10-100 STG Duration MET [facility] Goal (LTG) 0-125 to allow pt to do stairs and functional activities without pain LTG Duration 12/01/17 Assessment Summary Assessment Pt progressing with ROM and exercise tolerance, HS tightness continues to limit extension Physical Therapy Plan Frequency and Duration Frequency of Treatment 2x/Week Duration of Treatment 8 weeks Plan of Care Start Date 10/06/17 Plan of Care End Date 12/01/17 Next Visit Focus/Plan Next Note Type Treatment Note Next Visit Plan Progress ROM, scar tissue, strength
--- NOTE | 2017-11-21 17:29 | PT.OTN ---
Current Diagnoses Unilateral primary osteoarthritis, left knee (11/21/17) Physical Therapy Treatment Note PT-OP-A Visit Information Start: 08/09/17 09:47 Freq: Status: Active Protocol: Document 11/21/17 16:45 DCW (Rec: 11/21/17 17:29 DCW [id number]) Out-Patient Physical Therapy Visit Information Visit Information Visit Type Treatment Note Visit Note 30 PCY Visit Start Time 16:45 Visit Stop Time 17:35 Total Visit Minutes 50 Visit Number 19 Number of DIRECTOR OF USER EXPERIENCE Visits 0 Evaluation Information Evaluation Date 08/09/17 PT-OP-B Current Condition Start: 08/09/17 09:47 Freq: Status: Active Protocol: Document 08/09/17 10:34 [facility] (Rec: 08/09/17 17:15 [facility] [id number]) Current Condition History of Current Condition History of Current Condition Pt had L partial knee replacement on 08/07/17 and has been taking percocet and visceral for pain. 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 Reports he played a lot of football when he was young, causing him to need his replacements. Treatment Goals Patient/Caregiver Goals Recover without requiring a manipulation PT-OP-C Subjective Start: 08/09/17 09:47 Freq: Status: Active Protocol: Document 11/21/17 16:45 DCW (Rec: 11/21/17 17:29 DCW [id number]) OP-PT Subjective Patient Comments Patient Comments Pt a little stiff and sore, but not bad after spending all day on his feet at work. PT-OP-G Mobility & Gait Start: 08/09/17 09:47 Freq: Status: Active Protocol: Document 08/09/17 10:34 [facility] (Rec: 08/09/17 15:10 [facility] [id number]) OP Gait Assessment Comments Gait Comments Step to with fwd lean & FWW PT-OP-K Range of Motion Start: 08/09/17 09:47 Freq: Status: Active Protocol: Document 11/14/17 16:45 DCW (Rec: 11/14/17 17:32 DCW [id number]) Knee Goniometric Range of Motion Knee Measured in Degrees Left Patient Position Supine Flexion Active (degrees) 114 Extension Active (degrees) 4 PT-OP-M Strength Start: 08/09/17 09:47 Freq: Status: Active Protocol: Document 08/09/17 10:34 [facility] (Rec: 08/09/17 15:10 [facility] [id number]) Hip Strength Hip Manual Muscle Testing Right Flexion (L2) 4 Good External Rotation 4- Good- Internal Rotation 4 Good Comments knee & ankle WNL R Left Flexion (L2) 3- Fair- External Rotation 3 Fair Internal Rotation 3 Fair Knee Strength Knee Manual Muscle Testing Left Flexion (S2) 3+ Fair+ Extension (L3) 2- Poor- PT-OP-Q Treatments Start: 08/09/17 09:47 Freq: Status: Active Protocol: Document 11/21/17 16:45 DCW (Rec: 11/21/17 17:29 DCW [id number]) Cardio Equipment Recumbent Bicycle Duration (Minutes) 8 Resistance 4 Seat Position 10, 9 Gym Equipment Shuttle Recovery Unilateral Squats Details 75# Shuttle Recovery Platform Stable Reps/Time 2x15 Bilateral Squats Resistance 125# Shuttle Recovery Platform Stable Reps/Time x15 Therapeutic Ball Bridging /c HS curls Exercise Details Bridging /c HS curls Ball Size/Color Red - 55 cm Body Position Supine Bridging Exercise Details Bridging /c feet on ball Ball Size/Color Red - 55 cm Body Position Supine Therapeutic Exercises Supine Exercises 9 Supine Exercise Name Bridging Standing Exercises 6 Standing Exercise Name sidestep squat Resistance green Reps/Minutes 20ft 5 Standing Exercise Name lunge walking Reps/Minutes 3x20ft 2 Standing Exercise Name fwd/back walk Equipment Used green tband Reps/Minutes 2x20ft PT-OP-R Modalities Start: 08/09/17 09:47 Freq: Status: Active Protocol: Document 11/21/17 16:45 DCW (Rec: 11/21/17 17:29 DCW [id number]) Hot Pack/Cold Pack Treatment Cold Pack Location L knee Patient Position Hooklying Treatment Duration (minutes) 10 PT-OP-T Assessment and Plan Start: 08/09/17 09:47 Freq: Status: Active Protocol: Document 11/21/17 16:45 DCW (Rec: 11/21/17 17:29 DCW [id number]) Physical Therapy Assessment Goals Four Impairment LEFS Short Term Goal (STG) 35/80 STG Duration 10/31/17 Halfway Goal (LTG) 65/80 LTG Duration 12/01/17 Three Impairment gait Short Term Goal (STG) Pt will amb with good mechanics with SPC STG Duration MET Stemhole Borer Goal (LTG) Pt will amb with good mechanics without AD LTG Duration MET Two Impairment MMT Stemhole Borer Goal (LTG) 5/5 to allow pt to do normal functional & rec activities LTG Duration 12/01/17 One Impairment ROM Short Term Goal (STG) 10-100 STG Duration MET Stemhole Borer Goal (LTG) 0-125 to allow pt to do stairs and functional activities without pain LTG Duration 12/01/17 Assessment Summary Assessment Pt tolerated new TherEx well. Manual therapy was skipped today, as pt's jeans were unable to go high enough to expose his knee. Physical Therapy Plan Frequency and Duration Frequency of Treatment 2x/Week Duration of Treatment 8 weeks Plan of Care Start Date 10/06/17 Plan of Care End Date 12/01/17 Next Visit Focus/Plan Next Note Type Treatment Note Next Visit Plan Progress ROM, scar tissue, strength
--- NOTE | 2017-12-07 17:33 | PT.OTN ---
Current Diagnoses Unilateral primary osteoarthritis, left knee (12/07/17) Physical Therapy Treatment Note PT-OP-A Visit Information Start: 08/09/17 09:47 Freq: Status: Active Protocol: Document 12/07/17 16:45 DCW (Rec: 12/07/17 17:30 DCW [id number]) Out-Patient Physical Therapy Visit Information Visit Information Visit Type Progress Note Visit Note 30 PCY Visit Start Time 16:45 Visit Stop Time 17:35 Total Visit Minutes 50 Visit Number 20 Number of LAUNDRY MACHINE TENDER Visits 0 Evaluation Information Evaluation Date 08/09/17 PT-OP-B Current Condition Start: 08/09/17 09:47 Freq: Status: Active Protocol: Document 08/09/17 10:34 [facility] (Rec: 08/09/17 17:15 [facility] [id number]) Current Condition History of Current Condition History of Current Condition Pt had L partial knee replacement on 08/07/17 and has been taking percocet and visceral for pain. 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 Reports he played a lot of football when he was young, causing him to need his replacements. Treatment Goals Patient/Caregiver Goals Recover without requiring a manipulation PT-OP-C Subjective Start: 08/09/17 09:47 Freq: Status: Active Protocol: Document 12/07/17 16:45 DCW (Rec: 12/07/17 17:30 DCW [id number]) OP-PT Subjective Patient Comments Patient Comments My knee is doing great, actually, but I just still need to work on mobility. PT-OP-G Mobility & Gait Start: 08/09/17 09:47 Freq: Status: Active Protocol: Document 12/07/17 16:45 DCW (Rec: 12/07/17 17:32 DCW [id number]) OP Gait Assessment Comments Gait Comments Independent gait WNL PT-OP-K Range of Motion Start: 08/09/17 09:47 Freq: Status: Active Protocol: Document 12/07/17 16:45 DCW (Rec: 12/07/17 17:33 DCW [id number]) Knee Goniometric Range of Motion Knee Measured in Degrees Left Patient Position Supine Flexion Active (degrees) 117 Flexion Passive (degrees) 117 Extension Active (degrees) 2 Extension Passive (degrees) 0 PT-OP-M Strength Start: 08/09/17 09:47 Freq: Status: Active Protocol: Document 12/07/17 16:45 DCW (Rec: 12/07/17 17:32 DCW [id number]) Hip Strength Hip Manual Muscle Testing Right Flexion (L2) 5 Normal External Rotation 5 Normal Internal Rotation 5 Normal Comments knee & ankle WNL R Left Flexion (L2) 5 Normal External Rotation 5 Normal Internal Rotation 5 Normal Knee Strength Knee Manual Muscle Testing Left Flexion (S2) 4+ Good+ Extension (L3) 5 Normal PT-OP-Q Treatments Start: 08/09/17 09:47 Freq: Status: Active Protocol: Document 12/07/17 16:45 DCW (Rec: 12/07/17 17:30 DCW [id number]) Cardio Equipment Recumbent Bicycle Duration (Minutes) 10 Resistance 5 Seat Position 9 Gym Equipment Shuttle Recovery Unilateral Squats Details 75# Shuttle Recovery Platform Stable Reps/Time 2x15 Bilateral Squats Resistance 125# Shuttle Recovery Platform Stable Reps/Time 2x15 Manual Therapy Treatment Soft Tissue Mobilization 4 Body Location HS Mobilization Type Rolling 3 Body Location L knee scar tissue (incisional region) Mobilization Type Myofascial Release Other Intensity/Depth Moderate Body Position Supine Joint Mobilizations 3 Joint patella Direction sup, inf & med 2 Joint tib fem Direction AP glide on femur & tibia FM 1 Joint tib fib Direction AP FM Manual Techniques 1 Type HS stretch 3 planes c/r PT-OP-R Modalities Start: 08/09/17 09:47 Freq: Status: Active Protocol: Document 12/07/17 16:45 DCW (Rec: 12/07/17 17:30 DCW [id number]) Hot Pack/Cold Pack Treatment Cold Pack Location L knee Patient Position Hooklying Treatment Duration (minutes) 10 PT-OP-T Assessment and Plan Start: 08/09/17 09:47 Freq: Status: Active Protocol: Document 12/07/17 16:45 DCW (Rec: 12/07/17 17:30 DCW [id number]) Physical Therapy Assessment Goals Four Impairment LEFS Short Term Goal (STG) 35/80 STG Duration 10/31/17 [facility]ci Goal (LTG) 65/80 LTG Duration 12/01/17 Three Impairment gait Short Term Goal (STG) Pt will amb with good mechanics with SPC STG Duration MET Regional Flatbed Truck Driver Goal (LTG) Pt will amb with good mechanics without AD LTG Duration MET Two Impairment MMT Regional Flatbed Truck Driver Goal (LTG) 5/5 to allow pt to do normal functional & rec activities LTG Duration 01/03/18 - Improving One Impairment ROM Short Term Goal (STG) 10-100 STG Duration MET [facility] Goal (LTG) 0-125 to allow pt to do stairs and functional activities without pain LTG Duration 01/03/18 - Improving Assessment Summary Assessment Pt making great progress, nearing completion of all goals. Pt AROM 2-117 degrees. Will likely discharge after 4- 6 more visits. Physical Therapy Plan Frequency and Duration Frequency of Treatment 2x/Week Duration of Treatment 4 weeks Plan of Care Start Date 12/07/17 Plan of Care End Date 01/04/18 Next Visit Focus/Plan Next Note Type Treatment Note Next Visit Plan Progress ROM, scar tissue, strength
--- NOTE | 2017-12-07 17:34 | PT.OPPOC ---
Current Diagnoses Unilateral primary osteoarthritis, left knee (12/07/17) Provider Visit Care Team Role Provider Type Stefan Saravia MD Attending Provider Physician Family Provider Primary Care Provider Specialty: Internal Medicine Address: [address] [place] [address], [id number] Email: [email or web address] Plan Of Care PT-OP-T Assessment and Plan Start: 08/09/17 09:47 Freq: Status: Active Protocol: Document 12/07/17 16:45 DCW (Rec: 12/07/17 17:30 DCW [id number]) Physical Therapy Assessment Goals Four Impairment LEFS Short Term Goal (STG) 35/80 STG Duration 10/31/17 Grievance Manager Goal (LTG) 65/80 LTG Duration 12/01/17 Three Impairment gait Short Term Goal (STG) Pt will amb with good mechanics with SPC STG Duration MET Grievance Manager Goal (LTG) Pt will amb with good mechanics without AD LTG Duration MET Two Impairment MMT Detention Goal (LTG) 5/5 to allow pt to do normal functional & rec activities LTG Duration 01/03/18 - Improving One Impairment ROM Short Term Goal (STG) 10-100 STG Duration MET Detention Goal (LTG) 0-125 to allow pt to do stairs and functional activities without pain LTG Duration 01/03/18 - Improving Assessment Summary Assessment Pt making great progress, nearing completion of all goals. Pt AROM 2-117 degrees. Will likely discharge after 4- 6 more visits. Physical Therapy Plan Frequency and Duration Frequency of Treatment 2x/Week Duration of Treatment 4 weeks Plan of Care Start Date 12/07/17 Plan of Care End Date 01/04/18 Next Visit Focus/Plan Next Note Type Treatment Note Next Visit Plan Progress ROM, scar tissue, strength Plan of Care Dates Plan of Care Start Date 12/07/17 Plan of Care End Date 01/04/18 Please Sign and Return: I have reviewed this Plan of Care and certify that the skilled therapy services above are required to meet the patient?s needs. Physician Signature Date Printed Name and Credentials Clinical Instructor Signature Printed Name and Credentials
--- NOTE | 2017-12-12 17:30 | PT.OTN ---
Current Diagnoses Unilateral primary osteoarthritis, left knee (12/12/17) Physical Therapy Treatment Note PT-OP-A Visit Information Start: 08/09/17 09:47 Freq: Status: Active Protocol: Document 12/12/17 16:45 DCW (Rec: 12/12/17 17:29 DCW [id number]) Out-Patient Physical Therapy Visit Information Visit Information Visit Type Progress Note Visit Note 30 PCY Visit Start Time 16:45 Visit Stop Time 17:35 Total Visit Minutes 50 Visit Number 21 Number of AIRCRAFT PAINTER APPRENTICE Visits 0 Evaluation Information Evaluation Date 08/09/17 PT-OP-B Current Condition Start: 08/09/17 09:47 Freq: Status: Active Protocol: Document 08/09/17 10:34 [facility] (Rec: 08/09/17 17:15 [facility] [id number]) Current Condition History of Current Condition History of Current Condition Pt had L partial knee replacement on 08/07/17 and has been taking percocet and visceral for pain. 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 Reports he played a lot of football when he was young, causing him to need his replacements. Treatment Goals Patient/Caregiver Goals Recover without requiring a manipulation PT-OP-C Subjective Start: 08/09/17 09:47 Freq: Status: Active Protocol: Document 12/12/17 16:45 DCW (Rec: 12/12/17 17:29 DCW [id number]) OP-PT Subjective Patient Comments Patient Comments Pt notes his knee is fantastic, has been doing a lot working out at the gym, feels like he is actually getting stronger now. PT-OP-G Mobility & Gait Start: 08/09/17 09:47 Freq: Status: Active Protocol: Document 12/07/17 16:45 DCW (Rec: 12/07/17 17:32 DCW [id number]) OP Gait Assessment Comments Gait Comments Independent gait WNL PT-OP-K Range of Motion Start: 08/09/17 09:47 Freq: Status: Active Protocol: Document 12/07/17 16:45 DCW (Rec: 12/07/17 17:33 DCW [id number]) Knee Goniometric Range of Motion Knee Measured in Degrees Left Patient Position Supine Flexion Active (degrees) 117 Flexion Passive (degrees) 117 Extension Active (degrees) 2 Extension Passive (degrees) 0 PT-OP-M Strength Start: 08/09/17 09:47 Freq: Status: Active Protocol: Document 12/07/17 16:45 DCW (Rec: 12/07/17 17:32 DCW [id number]) Hip Strength Hip Manual Muscle Testing Right Flexion (L2) 5 Normal External Rotation 5 Normal Internal Rotation 5 Normal Comments knee & ankle WNL R Left Flexion (L2) 5 Normal External Rotation 5 Normal Internal Rotation 5 Normal Knee Strength Knee Manual Muscle Testing Left Flexion (S2) 4+ Good+ Extension (L3) 5 Normal PT-OP-Q Treatments Start: 08/09/17 09:47 Freq: Status: Active Protocol: Document 12/12/17 16:45 DCW (Rec: 12/12/17 17:29 DCW [id number]) Cardio Equipment Recumbent Bicycle Duration (Minutes) 8 Resistance 5 Seat Position 10->5 Gym Equipment Shuttle Recovery Unilateral Squats Details 87# Shuttle Recovery Platform Stable Reps/Time 2x15 Bilateral Squats Resistance 150# Shuttle Recovery Platform Stable Reps/Time 2x15 Therapeutic Ball Bridging /c HS curls Exercise Details Bridging /c HS curls Ball Size/Color Red - 55 cm Body Position Supine Bridging Exercise Details Bridging /c feet on ball Ball Size/Color Red - 55 cm Body Position Supine Therapeutic Exercises Standing Exercises 8 Standing Exercise Name Flexion stretch on step 6 Standing Exercise Name sidestep squat Resistance green Reps/Minutes 20ft 4 Standing Exercise Name BOSU Lunges Side left 2 Standing Exercise Name fwd/back walk Equipment Used green tband Reps/Minutes 2x20ft PT-OP-R Modalities Start: 08/09/17 09:47 Freq: Status: Active Protocol: Document 12/12/17 16:45 DCW (Rec: 12/12/17 17:29 DCW [id number]) Hot Pack/Cold Pack Treatment Cold Pack Location L knee Patient Position Hooklying Treatment Duration (minutes) 10 PT-OP-T Assessment and Plan Start: 08/09/17 09:47 Freq: Status: Active Protocol: Document 12/12/17 16:45 DCW (Rec: 12/12/17 17:29 DCW [id number]) Physical Therapy Assessment Goals Four Impairment LEFS Short Term Goal (STG) 35/80 STG Duration 10/31/17 Intermediate Goal (LTG) 65/80 LTG Duration 12/01/17 Three Impairment gait Short Term Goal (STG) Pt will amb with good mechanics with SPC STG Duration MET Horticultural Specialty Grower Field Goal (LTG) Pt will amb with good mechanics without AD LTG Duration MET Two Impairment MMT Intermediate Goal (LTG) 5/5 to allow pt to do normal functional & rec activities LTG Duration 01/03/18 - Improving One Impairment ROM Short Term Goal (STG) 10-100 STG Duration MET Intermediate Goal (LTG) 0-125 to allow pt to do stairs and functional activities without pain LTG Duration 01/03/18 - Improving Assessment Summary Assessment Pt extension improved to 0 degrees today, also tolerated increased resistance with TherEx. Physical Therapy Plan Frequency and Duration Frequency of Treatment 2x/Week Duration of Treatment 4 weeks Plan of Care Start Date 12/07/17 Plan of Care End Date 01/04/18 Next Visit Focus/Plan Next Note Type Treatment Note Next Visit Plan Progress ROM, scar tissue, strength
--- NOTE | 2017-12-14 17:20 | PT.OTN ---
Current Diagnoses Unilateral primary osteoarthritis, left knee (12/14/17) Physical Therapy Treatment Note PT-OP-A Visit Information Start: 08/09/17 09:47 Freq: Status: Active Protocol: Document 12/14/17 16:40 DCW (Rec: 12/14/17 17:20 DCW [id number]) Out-Patient Physical Therapy Visit Information Visit Information Visit Type Progress Note Visit Note 30 PCY Visit Start Time 16:40 Visit Stop Time 17:25 Total Visit Minutes 45 Visit Number 22 Number of DIRECTOR PUBLIC Visits 0 Evaluation Information Evaluation Date 08/09/17 PT-OP-B Current Condition Start: 08/09/17 09:47 Freq: Status: Active Protocol: Document 08/09/17 10:34 [facility] (Rec: 08/09/17 17:15 [facility] [id number]) Current Condition History of Current Condition History of Current Condition Pt had L partial knee replacement on 08/07/17 and has been taking percocet and visceral for pain. 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 Reports he played a lot of football when he was young, causing him to need his replacements. Treatment Goals Patient/Caregiver Goals Recover without requiring a manipulation PT-OP-C Subjective Start: 08/09/17 09:47 Freq: Status: Active Protocol: Document 12/14/17 16:40 DCW (Rec: 12/14/17 17:20 DCW [id number]) OP-PT Subjective Patient Comments Patient Comments Pt still happy with his current knee function. PT-OP-G Mobility & Gait Start: 08/09/17 09:47 Freq: Status: Active Protocol: Document 12/07/17 16:45 DCW (Rec: 12/07/17 17:32 DCW [id number]) OP Gait Assessment Comments Gait Comments Independent gait WNL PT-OP-K Range of Motion Start: 08/09/17 09:47 Freq: Status: Active Protocol: Document 12/07/17 16:45 DCW (Rec: 12/07/17 17:33 DCW [id number]) Knee Goniometric Range of Motion Knee Measured in Degrees Left Patient Position Supine Flexion Active (degrees) 117 Flexion Passive (degrees) 117 Extension Active (degrees) 2 Extension Passive (degrees) 0 PT-OP-M Strength Start: 08/09/17 09:47 Freq: Status: Active Protocol: Document 12/07/17 16:45 DCW (Rec: 12/07/17 17:32 DCW [id number]) Hip Strength Hip Manual Muscle Testing Right Flexion (L2) 5 Normal External Rotation 5 Normal Internal Rotation 5 Normal Comments knee & ankle WNL R Left Flexion (L2) 5 Normal External Rotation 5 Normal Internal Rotation 5 Normal Knee Strength Knee Manual Muscle Testing Left Flexion (S2) 4+ Good+ Extension (L3) 5 Normal PT-OP-Q Treatments Start: 08/09/17 09:47 Freq: Status: Active Protocol: Document 12/14/17 16:40 DCW (Rec: 12/14/17 17:20 DCW [id number]) Cardio Equipment Recumbent Bicycle Duration (Minutes) 8 Resistance 5 Seat Position 8 Gym Equipment Shuttle Recovery Unilateral Squats Details 87# Shuttle Recovery Platform Stable Reps/Time 2x15 Bilateral Squats Resistance 150# Shuttle Recovery Platform Stable Reps/Time 2x15 Shuttle Balance Red Details Wide MAUREEN, Staggered Stance, Lateral weight shift Therapeutic Ball Bridging /c HS curls Exercise Details Bridging /c HS curls Ball Size/Color Red - 55 cm Body Position Supine Manual Therapy Treatment Joint Mobilizations 2 Joint tib fem Direction AP glide on femur & tibia FM 1 Joint tib fib Direction AP FM PT-OP-T Assessment and Plan Start: 08/09/17 09:47 Freq: Status: Active Protocol: Document 12/14/17 16:40 DCW (Rec: 12/14/17 17:20 DCW [id number]) Physical Therapy Assessment Goals Four Impairment LEFS Short Term Goal (STG) 35/80 STG Duration 10/31/17 Steam Table Attendant Goal (LTG) 65/80 LTG Duration 12/01/17 Three Impairment gait Short Term Goal (STG) Pt will amb with good mechanics with SPC STG Duration MET Usp Goal (LTG) Pt will amb with good mechanics without AD LTG Duration MET Two Impairment MMT Usp Goal (LTG) 5/5 to allow pt to do normal functional & rec activities LTG Duration 01/03/18 - Improving One Impairment ROM Short Term Goal (STG) 10-100 STG Duration MET Steam Table Attendant Goal (LTG) 0-125 to allow pt to do stairs and functional activities without pain LTG Duration 01/03/18 - Improving Assessment Summary Assessment Doing very well, likely discharge following next visit . Physical Therapy Plan Frequency and Duration Frequency of Treatment 2x/Week Duration of Treatment 4 weeks Plan of Care Start Date 12/07/17 Plan of Care End Date 01/04/18 Next Visit Focus/Plan Next Note Type Discharge Summary Next Visit Plan Progress ROM, scar tissue, strength
--- NOTE | 2018-02-13 09:47 | PT.OPDS ---
Current Diagnoses Unilateral primary osteoarthritis, left knee (12/14/17) Provider Visit Care Team Role Provider Type Stefan Saravia MD Attending Provider Physician Family Provider Primary Care Provider Specialty: Internal Medicine Address: [address] [place] [address], [id number] Email: [email or web address] Visit Number Visit Number 22 Discharge Summary PT-OP-B Current Condition Start: 08/09/17 09:47 Freq: Status: Active Protocol: Document 08/09/17 10:34 [facility] (Rec: 08/09/17 17:15 [facility] [id number]) Current Condition History of Current Condition History of Current Condition Pt had L partial knee replacement on 08/07/17 and has been taking percocet and visceral for pain. 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 Reports he played a lot of football when he was young, causing him to need his replacements. Treatment Goals Patient/Caregiver Goals Recover without requiring a manipulation PT-OP-C Subjective Start: 08/09/17 09:47 Freq: Status: Active Protocol: Document 12/14/17 16:40 DCW (Rec: 12/14/17 17:20 DCW [id number]) OP-PT Subjective Patient Comments Patient Comments Pt still happy with his current knee function. PT-OP-G Mobility & Gait Start: 08/09/17 09:47 Freq: Status: Active Protocol: Document 12/07/17 16:45 DCW (Rec: 12/07/17 17:32 DCW [id number]) OP Gait Assessment Comments Gait Comments Independent gait WNL PT-OP-K Range of Motion Start: 08/09/17 09:47 Freq: Status: Active Protocol: Document 12/07/17 16:45 DCW (Rec: 12/07/17 17:33 DCW [id number]) Knee Goniometric Range of Motion Knee Measured in Degrees Left Patient Position Supine Flexion Active (degrees) 117 Flexion Passive (degrees) 117 Extension Active (degrees) 2 Extension Passive (degrees) 0 PT-OP-M Strength Start: 08/09/17 09:47 Freq: Status: Active Protocol: Document 12/07/17 16:45 DCW (Rec: 12/07/17 17:32 DCW [id number]) Hip Strength Hip Manual Muscle Testing Right Flexion (L2) 5 Normal External Rotation 5 Normal Internal Rotation 5 Normal Comments knee & ankle WNL R Left Flexion (L2) 5 Normal External Rotation 5 Normal Internal Rotation 5 Normal Knee Strength Knee Manual Muscle Testing Left Flexion (S2) 4+ Good+ Extension (L3) 5 Normal PT-OP-T Assessment and Plan Start: 08/09/17 09:47 Freq: Status: Active Protocol: Document 02/13/18 09:46 [facility] (Rec: 02/13/18 09:47 [facility] [id number]) Physical Therapy Plan Discharge Physical Therapy Discharge Comments Plan was to d/c after last session. pt is being seen as new case, so D/C current case. Pt indep with HEP
== END 2018-02-16 13:31 ==
LOC: PHYS 16:45
PROVIDERS: Family Provider Internal Medicine; PCP Internal Medicine; Visit Provider Internal Medicine
DX: M17.12 Unilateral primary osteoarthritis, left knee (principal)
CPT/HCPCS: 97010; 97110; 97112; 97140; 97162; 97530

== ENCOUNTER → 2018-01-10 06:52 | Outpatient (CLI) | payer OTHER, SELFPAY ==
[2018-01-10 08:51] LABS: Alanine Aminotransferase 36 IU/L (21-72); Albumin 4.4 g/dL (3.5-5.0); Albumin Globulin Ratio 1.3 (1.0-2.8); Alkaline Phosphatase 30 U/L (38-126); Aspartate Aminotransferase 25 IU/L (17-59); Bilirubin Total 0.2 mg/dL (0.2-1.3); Blood Urea Nitrogen 23 mg/dL (9-20); Calcium 9.4 mg/dL (8.4-10.2); Carbon Dioxide 30 mmol/L (22-32); Chloride 100 mmol/L (98-107); Cholesterol 182 mg/dL (140-199); Estimated Glomerular Filt Rate > 60.0 mL/min (>60); Globulin 3.3 g/dL (1.7-4.1); Glucose 97 mg/dL (70-100); HDL Cholesterol 30 mg/dL (40-60); HEMOLYSIS < 15 (0-50); LDL Cholesterol Calculated 129 mg/dL (<100); Potassium 4.4 mmol/L (3.4-5.1); Sodium 143 mmol/L (137-145); Total Protein 7.7 g/dL (6.3-8.2); Triglycerides 115 mg/dL (35-150)
[2018-01-10 09:15] LABS: Free T4, Direct Thyroxine 1.01 ng/dL (0.78-2.19)
[2018-01-10 09:18] LABS: Prostate Specific Antigen Scrn 1.67 ng/mL (0.1-4.0)
[2018-01-18 09:22] LABS: Testosterone Free 117.9 pg/mL (35.0-155.0); Testosterone Total 369 ng/dL (250-1100)
== END ==
PROVIDERS: PCP Internal Medicine; Visit Provider Internal Medicine
DX: E03.9 Hypothyroidism, unspecified (principal); E29.1 Testicular hypofunction; E78.5 Hyperlipidemia, unspecified; I10 Essential (primary) hypertension; Z12.5 Encounter for screening for malignant neoplasm of prostate
CPT/HCPCS: 36415; 80053; 80061; 84402; 84403; 84439; 84443; G0103

== ENCOUNTER → 2018-01-13 07:29 | Outpatient (CLI) | payer OTHER, SELFPAY | PROVIDERS: PCP Internal Medicine; Visit Provider Internal Medicine | DX: Z53.8 Procedure and treatment not carried out for other reasons (principal) ==

== ENCOUNTER → 2018-10-24 06:49 | Outpatient (CLI) | payer OTHER, SELFPAY ==
--- NOTE | 2018-10-24 06:50 | DI.ECHO.S_ITS ---
[place] +---------+ [facility] +---------+ : : [address] : : : : [id number] : : : : Phone: [phone]---------+ Echocardiogram Report + + :Name: BETHANIE CAMPOS Study Date: 10/24/2018 Height: 72 in : :[facility] Exam Location: IS Weight: 275 lb : : Gender: Male BSA: 2.4 m2 : :: 1960 Age: 57 yrs BP: 110/62 mmHg: :Reason For Study: MURMUR : : Performed By: Andrei Forman : :Referring: YELITZA ADAM R : + + Interpretation Summary Normal sinus rhythm. Normal LV size, wall thickness, wall motion and LV sysotlic function. EF is 60-65%. Mild LA enlargement; otherwise normal chamber sizes. There is aortic sclerosis with mild associated stenosis. Otherwise no significant valvular abnormalities. No prior study available for comparison. Procedure: A two-dimensional transthoracic echocardiogram with color flow and Doppler was performed. The study quality was technically adequate. There is no prior echocardiogram noted for this patient. The patient was in normal sinus rhythm during the exam. Left Ventricle: The left ventricle is normal in size. There is normal left ventricular wall thickness. The LVOT velocity is 2.06 m/s. The left ventricular outflow velocity with valsalva is 1.15 m/s. The ejection fraction is estimated to be 60-65%. Diastolic parameters suggest a relaxation abnormality of the left ventricle, consistent with probable normal filling pressures. Right Ventricle: The right ventricle is normal in size and function. Atria: The left atrium is mildly dilated. Right atrial size is normal. The interatrial septum is intact with no evidence for an atrial septal defect. Mitral Valve: The mitral valve is normal in structure and function. There is no mitral regurgitation noted. Aortic Valve: The aortic valve is mildly calcified. There is mildly reduced leaflet mobility. The peak aortic velocity is 2.6 m/sec. The aortic valve mean gradient is 17 mmHg. The calculated aortic valve area is 2.4 cm2. There is mild aortic stenosis. No aortic regurgitation is present. Tricuspid Valve: The tricuspid valve is normal in structure and function. No tricuspid regurgitation. Pulmonary artery pressures cannot be estimated because of the lack of a measurable TR jet velocity. Pulmonic Valve: The pulmonic valve is normal in structure and function. The peak velocity through the pulmonic valve is 1.65 m/s. There is trace pulmonic regurgitation. Great Vessels: The aortic root is normal size. The dimensions of the ascending aorta are normal. The pulmonary artery is normal size. The IVC is dilated (diameter is greater than 2.1 cm) yet it collapses greater than 50% with a sniff. This suggests a right atrial pressure of 8 mm Hg. Pericardium/ Pleura There is no pericardial effusion. There is no pleural effusion. MMode/2D Measurements & Calculations LVIDd: 5.0 cm LVOT diam: 2.2 cm LVIDs: 2.8 cm Ao root diam: 3.1 cm FS: 42.9 % Aortic Jxn: 2.3 cm EPSS: 0.43 cm asc Aorta Diam: 2.9 cm IVSd: 0.94 cm Ao Arch Diam (Prox Trans): 2.5 cm LVPWd: 1.0 cm LV richter. diameter/BSA (cm/m^2): 2.0 LV sys. diameter/BSA (cm/m^2): 1.2 LA dimension: 3.5 cm RA long axis: 4.4 cm LA A2 area: 27.9 cm2 RA area: 18.3 cm2 LA A4 area: 24.2 cm2 RA vol: 65.6 ml LA length (vol): 6.2 cm RA : 26.9 ml/m2 LA vol: 93.0 ml IVC diam: 2.5 cm LA vol index: 38.1 ml/m2 Doppler Measurements & Calculations Ao V2 max: 264.1 cm/sec LVOT Max Ashish: 206.2 cm/sec Ao V2 mean: 203.1 cm/sec LV V1 max P.0 mmHg Ao max P.9 mmHg LV V1 VTI: 37.3 cm Ao mean P.4 mmHg MIREYA(I,D): 2.4 cm2 Ao V2 VTI: 60.1 cm MIREYA(V,D): 3.0 cm2 sev ratio: 0.62 MIREYA indexed to BSA (cm^2/m^2): 0.97 MV E max ashish: 94.4 cm/sec PA V2 max: 140.4 cm/sec MV A max ashish: 88.7 cm/sec PA V2 mean: 124.7 cm/sec MV E/A: 1.1 PA mean P.9 mmHg Med Peak E' Ashish: 9.3 cm/sec PA pr(Accel): 24.1 mmHg E/E' med: 10.2 PA Accel Time: 0.11 sec Lat Peak E' Ashish: 13.2 cm/sec E/E' lat: 7.1 E/e' average: 8.6 MV dec time: 0.26 sec SV(LVOT): 142.7 ml Electronically signed by: Becca Melchor M.D. on Reading Physician:10/25/2018 01:42 AM
== END ==
PROVIDERS: Family Provider Internal Medicine; PCP Internal Medicine; Visit Provider Internal Medicine
DX: R01.1 Cardiac murmur, unspecified (principal)
CPT/HCPCS: 93306

== ENCOUNTER → 2019-05-01 07:01 | Outpatient (CLI) | payer OTHER, SELFPAY ==
[2019-05-01 08:22] LABS: Alanine Aminotransferase 26 IU/L (<50); Albumin 4.4 g/dL (3.5-5.0); Albumin Globulin Ratio 1.3 (1.0-2.8); Alkaline Phosphatase 32 U/L (38-126); Aspartate Aminotransferase 25 IU/L (17-59); BUN Creatinine Ratio 26.7 (6-22); Bilirubin Total 0.4 mg/dL (0.2-1.3); Blood Urea Nitrogen 24 mg/dL (9-20); Calcium 9.6 mg/dL (8.4-10.2); Carbon Dioxide 25 mmol/L (22-32); Chloride 100 mmol/L (98-107); Cholesterol 176 mg/dL (140-199); Estimated Glomerular Filt Rate > 60.0 mL/min (>60); Globulin 3.5 g/dL (1.7-4.1); Glucose 105 mg/dL (70-100); HDL Cholesterol 28 mg/dL (40-60); HEMOLYSIS < 15 (0-50); LDL Cholesterol Calculated 121 mg/dL (<100); Potassium 4.1 mmol/L (3.4-5.1); Sodium 140 mmol/L (137-145); Total Protein 7.9 g/dL (6.3-8.2); Triglycerides 136 mg/dL (35-150)
[2019-05-01 08:39] LABS: Free T4, Direct Thyroxine 1.12 ng/dL (0.78-2.19)
[2019-05-01 08:52] LABS: Prostate Specific Antigen Scrn 1.18 ng/mL (0.1-4.0); Thyroid Stimulating Hormone 3.01 uIU/mL (0.47-4.68)
[2019-05-04 19:44] LABS: Testosterone Free 24.9 pg/mL (35.0-155.0); Testosterone Total 121 ng/dL (250-1100)
== END ==
PROVIDERS: Family Provider Internal Medicine; PCP Internal Medicine; Referring Provider Internal Medicine; Visit Provider Internal Medicine
DX: Z12.5 Encounter for screening for malignant neoplasm of prostate (principal); E03.9 Hypothyroidism, unspecified; E78.5 Hyperlipidemia, unspecified; I10 Essential (primary) hypertension
CPT/HCPCS: 36415; 80053; 80061; 84402; 84403; 84439; 84443; G0103

== ENCOUNTER → 2019-05-10 16:40 | Outpatient (CLI) | payer OTHER, SELFPAY | PROVIDERS: Family Provider Internal Medicine; PCP Internal Medicine; Referring Provider Internal Medicine; Visit Provider Internal Medicine | DX: R06.2 Wheezing (principal) ==

== ENCOUNTER → 2019-09-19 14:20 | Outpatient (CLI) | payer OTHER, SELFPAY | PROVIDERS: Family Provider Internal Medicine; PCP Internal Medicine; Referring Provider Internal Medicine; Visit Provider Internal Medicine | DX: M79.602 Pain in left arm (principal); M79.605 Pain in left leg | CPT/HCPCS: 95886; 95911 ==

== ENCOUNTER → 2019-11-26 08:32 | Outpatient (CLI) | payer OTHER, SELFPAY ==
[2019-11-27 14:18] LABS: COVID19 Sendout Not Detected (Not Detect)
== END ==
PROVIDERS: Family Provider Internal Medicine; PCP Internal Medicine; Visit Provider Physician Assistant
DX: Z11.59 Encounter for screening for other viral diseases (principal)
CPT/HCPCS: 87635

== ENCOUNTER 2020-07-17 05:19 | Emergency (ER) | payer OTHER, SELFPAY ==
[2020-07-17] VITALS (7 sets, daily range): BP systolic 140–176; BP diastolic 72–92; PULSE 57–65; RESP 10–24; O2SAT 98–100; BMI 38.0
--- NOTE | 2020-07-17 05:30 | DI.RAD.S_ITS ---
PROCEDURE: XR CHEST 1V INDICATIONS: dyspnea TECHNIQUE: One view of the chest was acquired. COMPARISON: [facility], , CHEST 2 VIEW, 03/11/2016, 9:21. FINDINGS: Surgical changes and devices: None. Lungs and pleura: Lungs are clear. No pleural effusions or pneumothorax. Mediastinum: Mediastinal contours appear normal. Heart size is normal. Bones and chest wall: No suspicious bony lesions. Overlying soft tissues appear unremarkable. IMPRESSION: 1. No acute cardiopulmonary disease. Concordant with preliminary interpretation. Dictated by: Babak Phillips M.D. on 07/17/2020 at 9:06 Approved by: Babak Phillips M.D. on 07/17/2020 at 9:07
[2020-07-17 05:41] LABS: Add Manual Diff / Slide Review NO; Basophils Absolute Auto 100 /uL (0-100); Basophils Percent Auto 1.4 % (0-2); Eosinophils Absolute Auto 200 /uL (0-450); Hemoglobin 15.6 g/dL (13.5-17.5); Lymphocytes Absolute Auto 2500 /uL (1100-4500); Lymphocytes Percent Auto 25.5 % (25-40); Mean Corpuscular HGB Conc 33.3 % (30-36); Mean Corpuscular Volume 87.2 fL (80-100); Monocytes Absolute Auto 1200 /uL (0-900); Monocytes Percent Auto 12.1 % (3-14); Neutrophils Absolute Auto 5800 /uL (1500-7000); Platelet Count 247 X10^3/uL (150-400); Red Blood Cell Count 5.38 X10^6/uL (4.5-5.9); Red Cell Distribution Width 15.4 % (11.6-14.8); White Blood Cell Count 9.8 X10^3/uL (4.5-11.0)
[2020-07-17 05:51] LABS: D Dimer < 200 ng/mL (<230)
[2020-07-17 05:52] LABS: Alanine Aminotransferase 35 IU/L (<50); Albumin 4.6 g/dL (3.5-5.0); Albumin Globulin Ratio 1.3 (1.0-2.8); Alkaline Phosphatase 30 U/L (38-126); Aspartate Aminotransferase 31 IU/L (17-59); BUN Creatinine Ratio 32.7 (6-22); Bilirubin Total 0.2 mg/dL (0.2-1.3); Blood Urea Nitrogen 33 mg/dL (9-20); Calcium 9.8 mg/dL (8.4-10.2); Carbon Dioxide 20 mmol/L (22-32); Chloride 104 mmol/L (98-107); Estimated Glomerular Filt Rate > 60.0 mL/min (>60); Globulin 3.5 g/dL (1.7-4.1); Glucose 99 mg/dL (70-100); HEMOLYSIS < 15 (0-50); Magnesium 2.1 mg/dL (1.6-2.3); Potassium 4.1 mmol/L (3.4-5.1); Sodium 137 mmol/L (137-145); Total Protein 8.1 g/dL (6.3-8.2)
--- NOTE | 2020-07-17 05:59 | PC.NURSE ---
Pt reports waking up this morning feeling like he couldn't catch his breathe. Denies cough or pain. denies worsening with laying down. Denies any cardiac or respiratory history
[2020-07-17 06:04] LABS: Troponin I < 0.012 ng/mL (0.01-0.034)
--- NOTE | 2020-07-17 06:05 | ED_ITS ---
HPI - General Adult General Chief complaint: Shortness of Breath/Dyspnea Stated complaint: difficulty breathing Time Seen by Provider: 07/17/20 05:27 Source: patient Mode of arrival: Wheelchair Limitations: no limitations History of Present Illness HPI narrative: 59-year-old gentleman with a history of high blood pressure, hypothyroidism, depression, reflux and seasonal allergies presents with acute dyspnea that awoke him from sleep tonight. He describes no fevers or cough. Does not complain that his throat or neck feels swollen. He does have a bit of nasal congestion. He is not complaining of palpitations, chest pain, abdominal pain. He has had no recent nausea vomiting or diarrhea. Has had similar sy mptoms but not quite so severe. Was recently given a prescription for albuterol and has not found that is been particularly helpful. Related Data Previous Rx's Medication Instructions Recorded Syringes syr IM SEE INSTRUCTIONS #7 05/02/17 varenicline 0.5 mg (11)-1 mg (42) See Rx Instructions PO PER PKG DIR 04/22/19 tablets in a dose pack #53 each varenicline 1 mg tablet 1 mg PO BID #56 tab 04/22/19 fluticasone propionate 110 2 inhalation INHALATION Q12H #12 10/25/19 mcg/actuation HFA aerosol inhaler gram syringe with needle 3 mL 20 gauge See Rx Instructions .ROUTE 12/18/19 x 1 .COMPLEX #7 each bupropion HCl 150 mg tablet,12 hr See Rx Instructions .ROUTE 12/27/19 sustained-release .COMPLEX #180 tablet hydrochlorothiazide 25 mg tablet See Rx Instructions .ROUTE 12/27/19 .COMPLEX #90 tablet levothyroxine 175 mcg tablet See Rx Instructions .ROUTE 12/27/19 .COMPLEX #90 tablet lisinopril 40 mg tablet See Rx Instructions .ROUTE 12/27/19 .COMPLEX #90 tablet omeprazole 40 mg capsule,delayed See Rx Instructions .ROUTE 12/27/19 release .COMPLEX #90 capsule albuterol sulfate 90 mcg/actuation 1 inh INHALATION Q4-6H PRN #6.7 03/31/20 aerosol inhaler gram tadalafil 20 mg tablet 10 - 20 mg PO DAILY PRN #45 tab 04/02/20 testosterone cypionate 200 mg/mL 450 mg IM [id number] #15 vial 06/29/20 intramuscular oil Allergies Allergy/AdvReac Type Severity Reaction Status Date / Time No Known Drug Allergies Allergy Verified 11/26/19 08:30 Review of Systems Review of Systems Narrative: Remainder of complete review of systems is otherwise unremarkable except for that included in the HPI. Patient History Medical History Acquired hypothyroidism (11/11/10) Aortic stenosis Asthma, mild persistent Chronic headaches (02/22/06) Closed head injury (02/22/06) Essential hypertension (11/12/15) Excessive daytime sleepiness Gastroesophageal reflux disease GERD (gastroesophageal reflux disease) Hearing loss (2007) Hematuria Hyperlipidemia (11/11/10) Hypogonadism in male (08/13/12) Hypothyroidism (1994) Low testosterone in male (2009) Obstructive sleep apnea of adult Post-traumatic headache, not intractable (03/25/13) Recurrent major depressive disorder, in full remission (01/01/14) Surgical History History of knee replacement (2003) History of vasectomy (04/2010) Status post knee surgery (08/07/17) Family History Brother Diabetes mellitus Father Diabetes mellitus Heart attack Mother Cancer Diabetes mellitus Stroke Sister Diabetes mellitus Social History marital status: number of children: 2 household members: spouse lives independently: Yes caregiver/support person: No housing: house pets and animals: Yes education level: college occupational status: employed current occupational exposures/hazards: No Previous occupational history: 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 Well-nourished well-developed HEENT: Moist mucous membranes, normal sclera with reactive pupils, no obvious tongue the retropharyngeal erythema or edema. Neck: No JVD, supple, no cervical adenopathy Respiratory: Lungs are clear to auscultation, no wheezing no rales no rhonchi. Full and symmetrical air movement able to speak in full sentences Cardiac: Regular rate and rhythm no murmurs no bruits Abdomen: Soft, nontender, good bowel tones, no flank pain Skin: Warm and dry, no rashes Neurologic: Grossly neurologically intact with no obvious asymmetries or abnormalities Extremities: No trauma, well perfused, no lower extremity edema Psych: Cooperative, appropriate insight and affect Initial Vital Signs Initial Vital Signs: Vital Signs Pulse Rate 65 07/17/20 05:20 Respiratory Rate 24 07/17/20 05:20 Blood Pressure 172/83 H 07/17/20 05:20 Pulse Oximetry 100 07/17/20 05:20 Course Orders Ordered: ED Orders 07/17/20 05:30 XR chest 1V Stat Complete Blood Count AUTO DIFF Stat Comprehensive Metabolic Panel Stat D Dimer Stat Magnesium Stat Troponin I Stat EKG-12 Lead Stat Vital Signs Vital signs: Vital Signs - 8 hr 07/17/20 05:20 Pulse Rate 65 Respiratory Rate 24 Blood Pressure 172/83 H Pulse Oximetry 100 Medical Decision Making Medical Records Medical records reviewed: Yes I reviewed the patient's medical records. Lab Data Lab results reviewed: Yes I reviewed the patient's lab results. Result diagrams: 07/17/20 05:30 07/17/20 05:30 Labs: Lab Results 07/17/20 07/17/20 07/17/20 Range/Units 05:30 05:30 05:30 WBC 9.8 (4.5-11.0) X10^3/uL RBC 5.38 (4.5-5.9) X10^6/uL Hgb 15.6 (13.5-17.5) g/dL Hct 47.0 (41-53) % MCV 87.2 (80-100) fL MCH 29.0 (26-34) PG MCHC 33.3 (30-36) % RDW 15.4 H (11.6-14.8) % Plt Count 247 (150-400) X10^3/uL Neut % (Auto) 59.0 (50-75) % Lymph % (Auto) 25.5 (25-40) % Atkinson % (Auto) 12.1 (3-14) % Eos % (Auto) 2.0 (2-4) % Baso % (Auto) 1.4 (0-2) % Neut # (Auto) 5800 (8895-1049) /uL Lymph # (Auto) 2500 (6011-3876) /uL Atkinson # (Auto) 1200 H (0-900) /uL Eos # (Auto) 200 (0-450) /uL Baso # (Auto) 100 (0-100) /uL D-Dimer < 200 (<230) ng/mL Sodium 137 (137-145) mmol/L Potassium 4.1 (3.4-5.1) mmol/L Chloride 104 (98-107) mmol/L Carbon Dioxide 20 L (22-32) mmol/L BUN 33 H (9-20) mg/dL Creatinine 1.01 (0.66-1.25) mg/dL Estimated GFR > 60.0 (>60) mL/min BUN/Creatinine Ratio 32.7 H (6-22) Glucose 99 (70-100) mg/dL Calcium 9.8 (8.4-10.2) mg/dL Magnesium 2.1 (1.6-2.3) mg/dL Total Bilirubin 0.2 (0.2-1.3) mg/dL AST 31 (17-59) IU/L ALT 35 (<50) IU/L Alkaline Phosphatase 30 L (38-126) U/L Troponin I < 0.012 (0.01-0.034) ng/mL Total Protein 8.1 (6.3-8.2) g/dL Albumin 4.6 (3.5-5.0) g/dL Globulin 3.5 (1.7-4.1) g/dL Albumin/Globulin Ratio 1.3 (1.0-2.8) Imaging Data Chest x-ray: Attestation: I personally reviewed and interpreted this imaging study as follows: My Impression: No cardiomegaly, no acute infiltrates, no pneumothorax no acute bony abnormalities ECG Data Attestation: I personally reviewed and interpreted this ECG as follows: Interpretation: Sinus rhythm at a rate of 66 No acute ischemic changes MDM Narrative Medical decision making narrative: 59-year-old gentleman presents with dyspnea of uncertain etiology. He is not having any wheezing, he is not significantly anemic, no acute EKG changes and normal troponin to suggest absence of acute coronary syndrome. D-dimer is normal so he does not have a pulmonary embolus, no sensation of swelling to suggest acute angioedema. Remainder of lab work is otherwise reassuring. Uncertain etiology for the dyspnea. Possibility of reflux and small amount of gastric contents getting into his trachea. Can certainly cause significant edema with the degree of anxiety he is currently exhibiting in setting of 100% oxygen saturations. He does have a history of sleep apnea, reflux and he is morbidly obese. He has some mild nasal discharge and may be developing cold may also be suffering from seasonal allergies, without significant wheeze appreciated on clinical exam. Discharge Plan Departure Patient Disposition: Home Clinical Impression: Acute dyspnea Instructions: DI for Shortness of Breath Activity Restrictions/Additional Instructions: Thank you for coming in today I did not find a life threatening cause for your acute shortness of breath today. There is no evidence of infection, heart attack, angioedema, asthma, heart failure, or blood clots in your lungs One possibilty could be aspiration of gastric fluid - getting stomach acid into your lungs. This can be VERY impressive and then improve quickly. It may also be related to your sleep apnea and current CPAP. The next step would be to schedule an apt with your primary care provider to reasses your sleep apnea and if your cpap is working as it should for you. DO keep the head of the bed elevated to reduce the risk of reflux. If you are getting worse, please return to the ER. Prescriptions: No Action Syringes IM SEE INSTRUCTIONS Qty: 7 RF: 3 syringe with needle [BD Luer-Hannah Syringe] 3 mL 20 gauge x 1 syringe See Rx Instructions .ROUTE .COMPLEX Qty: 7 RF: 2 lisinopril 40 mg tablet See Rx Instructions .ROUTE .COMPLEX Qty: 90 RF: 3 levothyroxine 175 mcg tablet See Rx Instructions .ROUTE .COMPLEX Qty: 90 RF: 3 bupropion HCl 150 mg tablet sustained-release 12 hr See Rx Instructions .ROUTE .COMPLEX Qty: 180 RF: 3 omeprazole 40 mg capsule,delayed release(DR/EC) See Rx Instructions .ROUTE .COMPLEX Qty: 90 RF: 3 hydrochlorothiazide 25 mg tablet See Rx Instructions .ROUTE .COMPLEX Qty: 90 RF: 3 albuterol sulfate 90 mcg/actuation HFA aerosol inhaler 1 inh INHALATION Q4-6H PRN (Reason: wheeze) Qty: 6.7 RF: 3 tadalafil 20 mg tablet 10 - 20 mg PO DAILY PRN (Reason: sexual activity) Qty: 45 RF: 4 testosterone cypionate [Depo-Testosterone] 200 mg/mL oil 450 mg IM [id number] Qty: 15 RF: 0 Chantix Starting Month Box 0.5 mg (11)- 1 mg (42) tablets,dose pack See Rx Instructions PO PER PKG DIR Qty: 53 RF: 0 Chantix Continuing Month Box 1 mg tablet 1 mg PO BID Qty: 56 RF: 7 Flovent HFA 110 mcg/actuation HFA aerosol inhaler 2 inhalation INHALATION Q12H Qty: 12 RF: 1 Referrals: Stefan Saravia MD [Primary Care Provider] -
== END 2020-07-17 06:47 | disposition home or self-care (01) ==
PROVIDERS: Emergency Provider Emergency Medicine; Family Provider Internal Medicine; PCP Internal Medicine
DX: R06.00 Dyspnea, unspecified (principal)
CPT/HCPCS: 36415; 71045; 80053; 83735; 84484; 85025; 85379; 93005; 93010; 99284

== ENCOUNTER → 2020-08-13 16:15 | Outpatient (CLI) | payer OTHER, SELFPAY ==
[2020-08-13 17:13] LABS: COVID19 -Nasal RAPID Negative (Negative)
== END ==
PROVIDERS: Family Provider Internal Medicine; PCP Internal Medicine; Referring Provider Internal Medicine; Visit Provider Internal Medicine
DX: Z20.822 Contact with and (suspected) exposure to COVID-19 (principal)
CPT/HCPCS: 87635; C9803

== ENCOUNTER → 2021-01-02 08:26 | Outpatient (CLI) | payer OTHER, SELFPAY ==
[2021-01-02 09:34] LABS: Alanine Aminotransferase 37 IU/L (<50); Albumin 4.6 g/dL (3.5-5.0); Albumin Globulin Ratio 1.5 (1.0-2.8); Alkaline Phosphatase 28 U/L (38-126); Aspartate Aminotransferase 27 IU/L (17-59); BUN Creatinine Ratio 25.9 (6-22); Bilirubin Total 0.5 mg/dL (0.2-1.3); Blood Urea Nitrogen 30 mg/dL (9-20); Calcium 10.1 mg/dL (8.4-10.2); Carbon Dioxide 29 mmol/L (22-32); Chloride 100 mmol/L (98-107); Cholesterol 184 mg/dL (140-199); Estimated Glomerular Filt Rate > 60.0 mL/min (>60); Glucose 100 mg/dL (70-100); HDL Cholesterol 34 mg/dL (40-60); HEMOLYSIS < 15 (0-50); LDL Cholesterol Calculated 120 mg/dL (<100); Potassium 4.9 mmol/L (3.4-5.1); Sodium 140 mmol/L (137-145); Total Protein 7.6 g/dL (6.3-8.2); Triglycerides 148 mg/dL (35-150)
[2021-01-02 09:47] LABS: Free T4, Direct Thyroxine 1.07 ng/dL (0.78-2.19)
[2021-01-02 10:01] LABS: Prostate Specific Antigen Scrn 2.08 ng/mL (0.1-4.0)
== END ==
PROVIDERS: Family Provider Internal Medicine; PCP Internal Medicine; Referring Provider Internal Medicine; Visit Provider Internal Medicine
DX: E03.9 Hypothyroidism, unspecified (principal); E78.2 Mixed hyperlipidemia; I10 Essential (primary) hypertension; Z12.5 Encounter for screening for malignant neoplasm of prostate
CPT/HCPCS: 36415; 80053; 80061; 84439; 84443; G0103

== ENCOUNTER → 2021-01-14 14:29 | Outpatient (CLI) | payer OTHER, SELFPAY ==
[2021-01-25 09:36] LABS: Percent Free Testosterone 3.52 % (1.50-4.20); Testosterone Free 4.08 ng/dL (5.00-21.00)
== END ==
PROVIDERS: Family Provider Internal Medicine; PCP Internal Medicine; Referring Provider Internal Medicine; Visit Provider Internal Medicine
DX: E29.1 Testicular hypofunction (principal)
CPT/HCPCS: 36415; 84402; 84403

== ENCOUNTER → 2021-01-16 10:40 | Outpatient (CLI) | payer OTHER, SELFPAY ==
[2021-01-18 12:49] LABS: Fecal Immunochemical Test Negative (Negative)
== END ==
PROVIDERS: Family Provider Internal Medicine; PCP Internal Medicine; Referring Provider Internal Medicine; Visit Provider Internal Medicine
DX: Z12.11 Encounter for screening for malignant neoplasm of colon (principal)
CPT/HCPCS: 82274

== ENCOUNTER → 2021-02-03 16:15 | Outpatient (CLI) | payer OTHER, SELFPAY ==
[2021-02-03 18:19] LABS: COVID19 -Nasal RAPID Negative (Negative)
== END ==
PROVIDERS: Family Provider Internal Medicine; PCP Internal Medicine; Referring Provider Internal Medicine; Visit Provider Internal Medicine
DX: Z20.822 Contact with and (suspected) exposure to COVID-19 (principal)
CPT/HCPCS: 87635; C9803

== ENCOUNTER → 2021-02-04 16:41 | Outpatient (CLI) | payer OTHER, SELFPAY ==
--- NOTE | 2021-02-10 09:20 | PM.PFT.1 ---
Pulmonary Function Test Referral & Results Date Patient Seen: 02/04/21 Requesting provider: Stefan Saravia Results: The spirometry demonstrates an FVC of 3.35 L which is 65% of predicted. The FEV1 was measured at 2.93 L which is 75% of predicted. The FEV1/FVC ratio was 87 which is 114% of predicted. Following the administration of bronchodilator there was no significant change Lung volumes show an SVC of 4.41 L which is 87% of predicted. The diffusing capacity was measured at 31.1 which is 88% of predicted. The maximum voluntary ventilation was minimally reduced Interpretation: This study demonstrates perhaps mild obstructive lung disease based on reduction FEV1 although FEV1/FVC ratio is preserved and there really is no notable evidence of benefit following bronchodilator. Shape a flow volume loop also really does not support the presence of obstructive lung disease There is minimal reduction in lung volumes suggesting the possibility of minimal restrictive lung disease There is also very minimal reduction diffusing capacity although probably could be interpreted as normal as well There is also mild reduction in maximum voluntary ventilation which in the absence of significant spirometric abnormalities might suggest the presence of neuromuscular disease as well Clinical correlation strongly suggested
== END ==
PROVIDERS: Family Provider Internal Medicine; PCP Internal Medicine; Referring Provider Internal Medicine; Visit Provider Internal Medicine
DX: R06.2 Wheezing (principal)
CPT/HCPCS: 94060; 94726; 94729

== ENCOUNTER 2021-05-21 11:58 | Emergency (ER) | payer OTHER, SELFPAY ==
[2021-05-21 12:13] VITALS: PULSE 58; RESP 20; TEMP 36.1; O2SAT 96; BMI 38.0
--- NOTE | 2021-05-21 13:29 | DI.CT.S_ITS ---
PROCEDURE: CT HEAD/BRAIN WO CON INDICATIONS: worst headache TECHNIQUE: Noncontrast 4.5 mm thick angled axial sections acquired from the foramen magnum to the vertex, with coronal and sagittal reformats. For radiation dose reduction, the following was used: automated exposure control, adjustment of mA and/or kV according to patient size. COMPARISON: [facility], CT, HEAD WITHOUT CONTRAST, 12/31/2015, 7:48. FINDINGS: Image quality: Excellent. CSF spaces: Basal cisterns are patent. No extra-axial fluid collections. Ventricles are normal in size and shape. Brain: No midline shift. No intracranial masses or hemorrhage. Nelson-white matter interface is normal. Skull and face: Calvarium and visualized facial bones are intact, without suspicious lesions. Sinuses: Visualized sinuses and mastoids are clear. IMPRESSION: No acute intracranial abnormality. Dictated by: Dillon Nieto M.D. on 05/21/2021 at 13:46 Approved by: Dillon Nieto M.D. on 05/21/2021 at 13:47
--- NOTE | 2021-05-21 13:57 | ED.HA ---
HPI - Headache <Vikas Vasquez PA-C - Last Filed: 05/21/21 18:17> General Chief Complaint: Headache Stated Complaint: bad headache Time Seen by Provider: 05/21/21 13:29 Mode of arrival: Ambulatory History of Present Illness HPI Narrative: This is a 60-year-old male presents to the emergency department due to acute onset approximately 4 hours ago. Patient included rate is at roughly an 8/10 severity. States that the pain in his forehead raise his head and his neck. Patient states that headache was bad enough to cause and come home from work where he took a blood pressure reading which she states it was ?180 or 160 over something. Patient states that he has a history of high blood pressure but was told to stop taking his lisinopril as his systolic pressure readings was ?under 100? at his recent visit with his primary care provider for weakness, slurred speech, nausea, vomiting, vision changes, or any other concerning signs or symptoms. Related Data Previous Rx's Medication Instructions Recorded Syringes syr IM SEE INSTRUCTIONS #7 05/02/17 varenicline 1 mg tablet (Chantix 1 mg PO BID #56 tab 04/22/19 Continuing Month Box) syringe with needle 3 mL 20 gauge See Rx Instructions .ROUTE 12/18/19 x 1 (BD Luer-Hannah Syringe) .COMPLEX #7 each albuterol sulfate 90 mcg/actuation 1 inh INHALATION Q4-6H PRN #6.7 09/22/20 aerosol inhaler gram bupropion HCl 150 mg tablet,12 hr 150 mg PO BID #180 tab 12/28/20 sustained-release hydrochlorothiazide 25 mg tablet 25 mg PO DAILY #90 tab 12/28/20 levothyroxine 175 mcg tablet 175 mcg PO DAILY #90 tab 12/28/20 lisinopril 40 mg tablet 40 mg PO DAILY #90 tab 12/28/20 omeprazole 40 mg capsule,delayed 40 mg PO DAILY #90 cap 12/28/20 release testosterone cypionate 200 mg/mL 450 mg (2.25 mL) IM .[id number] #45 ml 01/26/21 intramuscular oil (Depo-Testosterone) tadalafil 20 mg tablet 10 - 20 mg PO DAILY PRN #45 tab 04/12/21 mometasone-formoterol HFA 100 2 puff INHALATION BID #13 g 04/19/21 mcg-5 mcg/actuation aerosol inhaler Allergies Allergy/AdvReac Type Severity Reaction Status Date / Time No Known Drug Allergies Allergy Verified 04/26/21 14:29 Review of Systems <Vikas Vasquez PA-C - Last Filed: 05/21/21 18:17> Review of Systems Narrative: See HPI. Patient History <Vikas Vasquez PA-C - Last Filed: 05/21/21 18:17> Medical History (Updated 05/21/21 @ 14:32 by Vikas Vasquez PA-C) Acquired hypothyroidism (11/11/10) Aortic stenosis Asthma, mild persistent BMI 38.0-38.9,adult Chronic headaches (02/22/06) Closed head injury (02/22/06) Essential hypertension (11/12/15) Excessive daytime sleepiness Gastroesophageal reflux disease GERD (gastroesophageal reflux disease) Hearing loss (2007) Hematuria Hyperlipidemia (11/11/10) Hypogonadism in male (08/13/12) Hypothyroidism (1994) Low testosterone in male (2009) Obstructive sleep apnea of adult Post-traumatic headache, not intractable (03/25/13) Recurrent major depressive disorder, in full remission (01/01/14) Surgical History History of knee replacement (2003) History of vasectomy (04/2010) Status post knee surgery (08/07/17) Family History Brother Diabetes mellitus Father Diabetes mellitus Heart attack Mother Cancer Diabetes mellitus Stroke Sister Diabetes mellitus Social History marital status: number of children: 2 household members: spouse lives independently: Yes caregiver/support person: No housing: house pets and animals: Yes education level: college occupational status: employed current occupational exposures/hazards: No Previous occupational history: 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 austyn/hinduism: Zoroastrianism travel history: recent and other leisure activities: sports and other Smoking Status: Never smoker Tobacco: How many years used: 0 Smokeless tobacco user: chewing tobacco quit status: quit date established second hand exposure: Yes (Childhood, When at Casino) alcohol intake: current substance use type: does not use Smoking Status: Never smoker Substance Use Type: does not use Exam <Vikas Vasquez PA-C - Last Filed: 05/21/21 18:17> Initial Vital Signs Initial Vital Signs: Vital Signs Temperature 96.9 F L 05/21/21 12:13 Pulse Rate 58 L 05/21/21 12:13 Respiratory Rate 20 05/21/21 12:13 Pulse Oximetry 96 05/21/21 12:13 Const General: cooperative and healthy appearing [facility] Head: normal to inspection and normocephalic Eyes General: appearance normal, both eyes and all related structures Neck Neck: normal visual inspection and full ROM Chest Chest: normal inspection of the chest Resp Effort & Inspection: normal respiratory effort Cardio Rate: regular rate Rhythm: regular rhythm Neuro General: patient alert, patient awake, patient oriented x3 and CN's II-XI intact bilaterally <Manuelito Agudelo DO - Last Filed: 05/22/21 07:28> Initial Vital Signs Initial Vital Signs: Vital Signs Temperature 96.9 F L 05/21/21 12:13 Pulse Rate 58 L 05/21/21 12:13 Respiratory Rate 20 05/21/21 12:13 Pulse Oximetry 96 05/21/21 12:13 Course <Vikas Vasquez PA-C - Last Filed: 05/21/21 18:17> Orders Ordered: Discontinued Medications Acetaminophen (Acetaminophen 325 Mg Tablet) 325 mg PO NOW ONE Stop: 05/21/21 15:19 Last Admin: 05/21/21 15:36 Dose: Not Given Documented by: YOGI Acetaminophen (Acetaminophen 325 Mg Tablet) 650 mg PO NOW ONE Stop: 05/21/21 15:37 Last Admin: 05/21/21 15:38 Dose: 650 mg Documented by: YOGI Dexamethasone (Dexamethasone 10 Mg/Ml Vial) 10 mg IV NOW ONE Stop: 05/21/21 14:12 Last Admin: 05/21/21 14:14 Dose: 10 mg Documented by: YOGI Sodium Chloride (Normal Saline 0.9%) 1,000 mls @ 1,000 mls/hr IV BOLUS ONE Stop: 05/21/21 15:02 Last Infusion: 05/21/21 15:18 Dose: 0 mls/hr Documented by: Admin: 05/21/21 14:12 Dose: 1,000 mls/hr Documented by: YOGI Ketorolac Tromethamine (Ketorolac 30 Mg/Ml Vial) 15 mg IV NOW ONE Stop: 05/21/21 14:04 Last Admin: 05/21/21 14:11 Dose: Not Given Documented by: YOGI Vital Signs Vital signs: Vital Signs - 8 hr 05/21/21 12:13 05/21/21 13:59 05/21/21 15:48 Temperature 96.9 F L Pulse Rate 58 L 57 L Respiratory Rate 20 Blood Pressure 145/65 H 161/90 H Pulse Oximetry 96 97 <Manuelito Agudelo DO - Last Filed: 05/22/21 07:28> Orders Ordered: Discontinued Medications Acetaminophen (Acetaminophen 325 Mg Tablet) 325 mg PO NOW ONE Stop: 05/21/21 15:19 Last Admin: 05/21/21 15:36 Dose: Not Given Documented by: YOGI Acetaminophen (Acetaminophen 325 Mg Tablet) 650 mg PO NOW ONE Stop: 05/21/21 15:37 Last Admin: 05/21/21 15:38 Dose: 650 mg Documented by: YOGI Dexamethasone (Dexamethasone 10 Mg/Ml Vial) 10 mg IV NOW ONE Stop: 05/21/21 14:12 Last Admin: 05/21/21 14:14 Dose: 10 mg Documented by: YOGI Sodium Chloride (Normal Saline 0.9%) 1,000 mls @ 1,000 mls/hr IV BOLUS ONE Stop: 05/21/21 15:02 Last Infusion: 05/21/21 15:18 Dose: 0 mls/hr Documented by: Admin: 05/21/21 14:12 Dose: 1,000 mls/hr Documented by: YOGI Ketorolac Tromethamine (Ketorolac 30 Mg/Ml Vial) 15 mg IV NOW ONE Stop: 05/21/21 14:04 Last Admin: 05/21/21 14:11 Dose: Not Given Documented by: YOGI Vital Signs Vital signs: Vital Signs - 8 hr 05/21/21 12:13 05/21/21 13:59 05/21/21 15:48 Temperature 96.9 F L Pulse Rate 58 L 57 L Respiratory Rate 20 Blood Pressure 145/65 H 161/90 H Pulse Oximetry 96 97 MDM - Headache <Vikas Vasquez PA-C - Last Filed: 05/21/21 18:17> Imaging Data CT scan - head: Radiologist's Impression: 6 Vikas Vasquez PA-C [facility] Routine Call Back Main ED ?18? My List ?2? Surge ?0? Waiting ?6? R07? Dylon? Francis? 60 M? With Doctor? 2h 8m? 3-Urgent? ?? Headache? bad headache? ?? 05/21/21 13:29? REG ER? Draft? Vikas Vasquez Sharifa L ? Order BP 145/65 Pulse Resp Temp O2 Sat Imaging MAR R12? Jairon? Alice? 64 F? With Doctor? 1h 6m? 3-Urgent? ?? Extremity Problem,Nontraumatic? Muscle cramps right side? ?? 05/21/21 12:45? REG ER? Draft? Vikas Pedro Rose T ? Order BP 147/76 Pulse 86 Resp 16 Temp 98.9 F O2 Sat 99% (RA) MAR Chem Creatine K... Imaging - CT head/brain wo con Francis Osborne?([facility])??60??M??1960 ? Allergy/Adv: No Known Drug Allergies (More??) Close Imaging ACTIVITY DATE EXAM STATUS AUTHOR 05/21/21 13:[address] Signed [facility] Reports Close Head CT (Signed) Dillon Nieto - 05/21/21 Launch?[place] [address] CT Scan Report Signed Patient: Francis Osborne MR#: [id number] : 1960 Acct:[id number] Age/Sex: 60 / M Date of Service: 05/21/21 Loc: ED Accession Number: [id number] ?? Procedure: CT head/brain wo con Ordering Provider: Manuelito Agudelo D.O. PROCEDURE:? CT HEAD/BRAIN WO CON ? INDICATIONS:? worst headache ? TECHNIQUE:? Noncontrast 4.5 mm thick angled axial sections acquired from the foramen magnum to the vertex, with coronal and sagittal reformats.? For radiation dose reduction, the following was used:? automated exposure control, adjustment of mA and/or kV according to patient size.? ? COMPARISON:? [facility], CT, HEAD WITHOUT CONTRAST, 12/31/2015, 7:48. ? FINDINGS:? Image quality:? Excellent.? ? CSF spaces:? Basal cisterns are patent.? No extra-axial fluid collections.? Ventricles are normal in size and shape.? ? Brain:? No midline shift.? No intracranial masses or hemorrhage.? Nelson-white matter interface is normal.? ? Skull and face:? Calvarium and visualized facial bones are intact, without suspicious lesions.? ? Sinuses:? Visualized sinuses and mastoids are clear.? ? IMPRESSION:? No acute intracranial abnormality. ? ? Dictated by: Dillon Nieto M.D. on 05/21/2021 at 13:46 ? ? Approved by: Dillon Nieto M.D. on 05/21/2021 at 13:47 ? MDM Narrative Medical decision making narrative: This is a 60-year-old male presents the emergency department due to a suspected benign headache. CT head negative for any intracranial abnormality or CVA. Normal neuro exam. Patient's headache was controlled using Decadron and IV fluids. Patient's blood pressure readings showed no concerning abnormalities during the course of the visit. Recommend he follow-up with primary care provider for long-term management of the blood pressure. Discharge Plan Departure Patient Disposition: Home Clinical Impression: Headache Instructions: DI for Headache Activity Restrictions/Additional Instructions: Thank you for coming to the [facility] Emergency Department. The CT we took during your visit showed no evidence of any kind of intracranial bleed or any other abnormality. I am glad that we were able to help with her headache with the medications and fluids given. Please follow-up with your primary care provider for long-term management regarding your blood pressure. Prescriptions: No Action Syringes IM SEE INSTRUCTIONS Qty: 7 3RF syringe with needle [BD Luer-Hannah Syringe] 3 mL 20 gauge x 1 syringe See Rx Instructions .ROUTE .COMPLEX Qty: 7 2RF Dose Instruction: USE ONE SYRINGE EVERY 4 WEEKS WITH TESTOSTERONE. Rx Instructions: USE ONE SYRINGE EVERY 4 WEEKS WITH TESTOSTERONE. albuterol sulfate 90 mcg/actuation HFA aerosol inhaler 1 inh INHALATION Q4-6H PRN (Reason: wheeze) Qty: 6.7 3RF lisinopril 40 mg tablet 40 mg PO DAILY Qty: 90 1RF Hold Instructions: hypotension bupropion HCl 150 mg tablet sustained-release 12 hr 150 mg PO BID Qty: 180 1RF hydrochlorothiazide 25 mg tablet 25 mg PO DAILY Qty: 90 1RF omeprazole 40 mg capsule,delayed release(DR/EC) 40 mg PO DAILY Qty: 90 1RF levothyroxine 175 mcg tablet 175 mcg PO DAILY Qty: 90 1RF testosterone cypionate [Depo-Testosterone] 200 mg/mL oil 450 mg IM .[id number] Qty: 45 0RF tadalafil 20 mg tablet 10 - 20 mg PO DAILY PRN (Reason: sexual activity) Qty: 45 4RF Rx Instructions: take approx 30min before activity; do not use more than 1 dose/day mometasone-formoterol 100-5 mcg/actuation HFA aerosol inhaler 2 puff inhalation BID Qty: 13 3RF Chantix Continuing Month Box 1 mg tablet 1 mg PO BID Qty: 56 7RF Referrals: Stefan Saravia MD [Primary Care Provider] - <Manuelito Agudelo DO - Last Filed: 05/22/21 07:28> Cosign ED Attending Cosignature Attestation: I was immediately available in the department for consultation. This documentation has been reviewed and I agree with assessment and plan. Supervised by Manuelito Agudelo DO
[2021-05-21 13:59] VITALS: BP 145/65
[2021-05-21] MEDS: SODIUM CHLORIDE 0.9% 1,000 ML 1000 ML IV (14:12)
[2021-05-21] MEDS: DEXAMETHASONE 10 MG/ML VIAL IV (14:14)
[2021-05-21] MEDS: ACETAMINOPHEN 325 MG TABLET 650 MG PO (15:38)
[2021-05-21 15:48] VITALS: BP 161/90; PULSE 57; O2SAT 97
== END 2021-05-21 15:51 | disposition home or self-care (01) ==
PROVIDERS: Emergency Provider Physician Assistant Medical; Family Provider Internal Medicine; PCP Internal Medicine
DX: R51.9 Headache, unspecified (principal); F17.220 Nicotine dependence, chewing tobacco, uncomplicated
CPT/HCPCS: 70450; 96361; 96374; 99284; J1100

== ENCOUNTER 2022-01-21 10:44 | Emergency (ER) | payer OTHER, SELFPAY ==
[2022-01-21 11:14] VITALS: BP 131/81; PULSE 60; RESP 14; TEMP 36.2; O2SAT 99; BMI 39.7
--- NOTE | 2022-01-21 11:24 | DI.CT.S_ITS ---
PROCEDURE: CT CERVICAL SPINE WO CON INDICATIONS: pain/ neck after lifting / left arm numbness. TECHNIQUE: Noncontrast 3 mm thick sections acquired from the skull base to the T4 level. Sagittal and coronal reformats were then constructed. For radiation dose reduction, the following was used: automated exposure control, adjustment of mA and/or kV according to patient size. COMPARISON: [facility], CT, C-SPINE WITHOUT CONTRAST, 10/08/2010, 14:42. [facility], CT, CT HEAD/BRAIN WO CON, 05/21/2021, 13:34. [facility], CT, CT HEAD/BRAIN WO CON, 01/21/2022, 11:33. FINDINGS: Image quality: This examination is somewhat limited by quantum mottle artifact. Bones: No fractures or dislocations. Visualized superior ribs are intact. There is moderate disc space narrowing seen at the C5-C6 level. Milder degenerative changes are seen elsewhere. Soft tissues: Prevertebral soft tissues are normal in thickness. No paravertebral hematomas. No apical pneumothoraces. IMPRESSION: No acute abnormality is seen. Focal C5-C6 degenerative change. If it would be helpful for clinical management decision making in this patient with this given history, please consider a dedicated cervical spine MRI for further evaluation (assuming that there is no contraindication). Dictated by: Isra Caicedo M.D. on 01/21/2022 at 10:59 Approved by: Isra Caicedo M.D. on 01/21/2022 at 11:01
--- NOTE | 2022-01-21 11:24 | DI.CT.S_ITS ---
PROCEDURE: CT HEAD/BRAIN WO CON INDICATIONS: pain/ neck after lifting / left arm numbness. TECHNIQUE: Noncontrast 4.5 mm thick angled axial sections acquired from the foramen magnum to the vertex, with coronal and sagittal reformats. For radiation dose reduction, the following was used: automated exposure control, adjustment of mA and/or kV according to patient size. COMPARISON: [facility], CT, CT HEAD/BRAIN WO CON, 05/21/2021, 13:34. FINDINGS: Image quality: Excellent. CSF spaces: Basal cisterns are patent. No extra-axial fluid collections. Ventricles are normal in size and shape. Brain: No midline shift. No intracranial masses or hemorrhage. Nelson-white matter interface is normal. Skull and face: Calvarium and visualized facial bones are intact, without suspicious lesions. Sinuses: Visualized sinuses and mastoids are clear. IMPRESSION: No evidence acute intracranial process. Dictated by: Nael Valero M.D. on 01/21/2022 at 11:44 Approved by: Nael Valero M.D. on 01/21/2022 at 11:45
--- NOTE | 2022-01-21 14:46 | ED_ITS ---
HPI - Extremity Problem <MERLE WelchP - Last Filed: 01/21/22 19:51> General Chief complaint: Extremity Problem,Nontraumatic Stated complaint: sent by [facility] arm numb Time Seen by Provider: 01/21/22 13:50 Source: patient Mode of arrival: Ambulatory History of Present Illness HPI Narrative: This is a 61-year-old male presents to the emergency department for worsening cervical radiculopathy over the last week. He states that 2 weeks ago he lifted something heavy in the garage and since then has had bilateral numbness and tingling symptoms. He denies any recent trauma, states that he is had neck pain for approximately 2 years but it has been progressive without any acute changes. He denies fever chills, weakness, urinary retention or urgency, he denies any lower extremity weakness or tingling. He states that he has had an EMG in the past and did not show weakness but he states his symptoms have worsened since then and he feels mild weakness bilaterally in his upper extremities since his exacerbation injury 1 week ago. Patient denies history of diabetes, denies any headache, vision changes, nausea or vomiting. He denies being on anticoagulation and diabetes. Related Data Previous Rx's Medication Instructions Recorded Syringes syr IM SEE INSTRUCTIONS ##7 05/02/17 varenicline 1 mg tablet (Chantix 1 mg PO BID #56 tabs 04/22/19 Continuing Month Box) tadalafil 20 mg tablet 10 - 20 mg PO DAILY PRN sexual 04/12/21 activity #45 tabs mometasone-formoterol HFA 100 2 puff inhalation BID #13 grams 04/19/21 mcg-5 mcg/actuation aerosol inhaler omeprazole 40 mg capsule,delayed 40 mg PO DAILY #90 caps 06/21/21 release lisinopril 20 mg tablet 20 mg PO DAILY #90 tabs 06/22/21 azithromycin 250 mg tablet See Rx Instructions PO .COMPLEX #6 06/24/21 tabs nirmatrelvir 300 mg (150 mg See Rx Instructions PO .COMPLEX 07/13/21 x2)-ritonavir 100 mg tablet,dose #30 tabs pack(EUA) (Paxlovid) testosterone cypionate 200 mg/mL 450 mg (2.25 mL) IM .x6lnoor #45 mL 08/18/21 intramuscular oil (Depo-Testosterone) syringe with needle 3 mL 20 gauge See Rx Instructions .Route 10/25/21 x 1 (BD Luer-Hannah Syringe) .COMPLEX #7 ea bupropion HCl 150 mg tablet,12 hr 150 mg PO BID #180 tabs 12/20/21 sustained-release hydrochlorothiazide 25 mg tablet 25 mg PO DAILY #90 tabs 12/20/21 levothyroxine 175 mcg tablet 175 mcg PO DAILY #90 tabs 12/20/21 cyclobenzaprine 5 mg tablet 5 mg PO TID PRN muscle spasm #20 12/27/21 tabs gabapentin 300 mg capsule 300 mg PO BEDTIME PRN numbness and 01/21/22 tingling #30 caps lidocaine 5 % topical patch 1 patch topical DAILY #15 ea 01/21/22 (Lidoderm) methocarbamol 750 mg tablet 750 mg PO Q8H PRN muscle spasm #20 01/21/22 tabs albuterol sulfate 90 mcg/actuation 1 inh inhalation Q4-6H PRN wheeze 01/24/22 aerosol inhaler #6.7 grams Allergies Allergy/AdvReac Type Severity Reaction Status Date / Time No Known Drug Allergies Allergy Verified 12/27/21 10:21 Review of Systems <DARBY Welch - Last Filed: 01/21/22 19:51> Review of Systems Narrative: Review of systems is negative for acute abnormalities unless otherwise noted in HPI Patient History <DARBY Welch - Last Filed: 01/21/22 19:51> Medical History Acquired hypothyroidism (11/11/10) Aortic stenosis Asthma, mild persistent BMI 38.0-38.9,adult Chronic headaches (02/22/06) Closed head injury (02/22/06) Essential hypertension (11/12/15) Excessive daytime sleepiness Gastroesophageal reflux disease GERD (gastroesophageal reflux disease) Hearing loss (2007) Hematuria Hyperlipidemia (11/11/10) Hypogonadism in male (08/13/12) Hypothyroidism (1994) Low testosterone in male (2009) Obstructive sleep apnea of adult Post-traumatic headache, not intractable (03/25/13) Recurrent major depressive disorder, in full remission (01/01/14) Surgical History History of knee replacement (2003) History of vasectomy (04/2010) Status post knee surgery (08/07/17) Family History Brother Diabetes mellitus Father Diabetes mellitus Heart attack Mother Cancer Diabetes mellitus Stroke Sister Diabetes mellitus Social History marital status: number of children: 2 household members: spouse lives independently: Yes caregiver/support person: No housing: house pets and animals: Yes education level: college occupational status: employed current occupational exposures/hazards: No Previous occupational history: 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 General: cooperative, comfortable, in no acute distress, well groomed HEENT: symmetrical facial expressions, moist mucous membranes no tenderness over his cervical spine, patient's range of motion is only limited due to pain however he can flex his neck and turn his head to left to right and without vision changes, EOMI, pupils are equal reactive to light, mucous membranes are moist and patient is afebrile MSK: moves all extremities, neurovascularly intact, no weakness, normal tone Skin: brisk capillary refill, without pallor or erythema Neuro: normal speech and cognition, A&O x3, ambulatory, clear speech Psych: mental status is grossly normal, congruent mood, normal affect, pleasant and cooperative Initial Vital Signs Initial Vital Signs: Vital Signs Temperature 97.1 F L 01/21/22 11:14 Pulse Rate 60 01/21/22 11:14 Respiratory Rate 14 01/21/22 11:14 Blood Pressure 131/81 01/21/22 11:14 Pulse Oximetry 99 01/21/22 11:14 Oxygen Delivery Method 01/21/22 11:14 <Winnie Louis DO - Last Filed: 02/04/22 10:59> Initial Vital Signs Initial Vital Signs: Vital Signs Temperature 97.1 F L 01/21/22 11:14 Pulse Rate 60 01/21/22 11:14 Respiratory Rate 14 01/21/22 11:14 Blood Pressure 131/81 01/21/22 11:14 Pulse Oximetry 99 01/21/22 11:14 Oxygen Delivery Method 01/21/22 11:14 Course <DARBY Welch - Last Filed: 01/21/22 19:51> Orders Ordered: Discontinued Medications Hydrocodone Bitart/Acetaminophen (Hydrocodone/Acet 5/325 Tablet) 1 tab PO NOW ONE Stop: 01/21/22 14:39 Last Admin: 01/21/22 15:30 Dose: 1 tab Documented By: BT Ketorolac Tromethamine (Ketorolac 30 Mg/Ml Vial) 30 mg IM NOW ONE Stop: 01/21/22 14:39 Last Admin: 01/21/22 15:31 Dose: 30 mg Documented By: BT Lidocaine (Lidocaine Patch 1 Each Adh..Patch) 1 each TOP NOW ONE Stop: 01/21/22 14:39 Last Admin: 01/21/22 15:30 Dose: 1 each Documented By: BT Methocarbamol (Methocarbamol 500 Mg Tablet) 750 mg PO NOW ONE Stop: 01/21/22 14:39 Last Admin: 01/21/22 15:30 Dose: 750 mg Documented By: BT Prednisone (Prednisone 20 Mg Tablet) 40 mg PO NOW ONE Stop: 01/21/22 14:40 Last Admin: 01/21/22 16:09 Dose: Not Given Documented By: BT Vital Signs Vital signs: Vital Signs - 8 hr 01/21/22 16:11 Pulse Rate 56 L Respiratory Rate 18 Blood Pressure 134/63 Pulse Oximetry 96 Oxygen Delivery Method Room Air <Winnie Louis DO - Last Filed: 02/04/22 10:59> Orders Ordered: Discontinued Medications Hydrocodone Bitart/Acetaminophen (Hydrocodone/Acet 5/325 Tablet) 1 tab PO NOW ONE Stop: 01/21/22 14:39 Last Admin: 01/21/22 15:30 Dose: 1 tab Documented By: BT Ketorolac Tromethamine (Ketorolac 30 Mg/Ml Vial) 30 mg IM NOW ONE Stop: 01/21/22 14:39 Last Admin: 01/21/22 15:31 Dose: 30 mg Documented By: BT Lidocaine (Lidocaine Patch 1 Each Adh..Patch) 1 each TOP NOW ONE Stop: 01/21/22 14:39 Last Admin: 01/21/22 15:30 Dose: 1 each Documented By: BT Methocarbamol (Methocarbamol 500 Mg Tablet) 750 mg PO NOW ONE Stop: 01/21/22 14:39 Last Admin: 01/21/22 15:30 Dose: 750 mg Documented By: BT Prednisone (Prednisone 20 Mg Tablet) 40 mg PO NOW ONE Stop: 01/21/22 14:40 Last Admin: 01/21/22 16:09 Dose: Not Given Documented By: BT Vital Signs Vital signs: Vital Signs - 8 hr 01/21/22 16:11 Pulse Rate 56 L Respiratory Rate 18 Blood Pressure 134/63 Pulse Oximetry 96 Oxygen Delivery Method Room Air MDM - Extremity (Nontraumatic) <DARBY Welch - Last Filed: 01/21/22 19:51> Imaging Data CT scan - head: Radiologist's Impression: PROCEDURE:? CT HEAD/BRAIN WO CON ? INDICATIONS:? pain/ neck after lifting / left arm numbness. ? TECHNIQUE:? Noncontrast 4.5 mm thick angled axial sections acquired from the foramen magnum to the vertex, with coronal and sagittal reformats.? For radiation dose reduction, the following was used:? automated exposure control, adjustment of mA and/or kV according to patient size.? ? COMPARISON:? [facility], CT, CT HEAD/BRAIN WO CON, 05/21/2021, 13:34. ? FINDINGS:? Image quality:? Excellent.? ? CSF spaces:? Basal cisterns are patent.? No extra-axial fluid collections.? Ventricles are normal in size and shape.? ? Brain:? No midline shift.? No intracranial masses or hemorrhage.? Nelson-white matter interface is normal.? ? Skull and face:? Calvarium and visualized facial bones are intact, without suspicious lesions.? ? Sinuses:? Visualized sinuses and mastoids are clear.? ? IMPRESSION:? No evidence acute intracranial process. ? ? Dictated by: Nael Valero M.D. on 01/21/2022 at 11:44 ? ? Approved by: Nael Valero M.D. on 01/21/2022 at 11:45 ? CT - cervical spine: Radiologist's Impression: PROCEDURE:? CT CERVICAL SPINE WO CON ? INDICATIONS:? pain/ neck after lifting / left arm numbness. ? TECHNIQUE:? Noncontrast 3 mm thick sections acquired from the skull base to the T4 level.? Sagittal and coronal reformats were then constructed.? For radiation dose reduction, the following was used:? automated exposure control, adjustment of mA and/or kV according to patient size.? ? COMPARISON:? [facility], CT, C-SPINE WITHOUT CONTRAST, 10/08/2010, 14:42.? [facility], CT, CT HEAD/BRAIN WO CON, 05/21/2021, 13:34.? [facility], CT, CT HEAD/BRAIN WO CON, 01/21/2022, 11:33. ? FINDINGS:? Image quality:? This examination is somewhat limited by quantum mottle artifact.? ? Bones:? No fractures or dislocations.? Visualized superior ribs are intact.? ? There is moderate disc space narrowing seen at the C5-C6 level.? Milder degenerative changes are seen elsewhere.? ? Soft tissues:? Prevertebral soft tissues are normal in thickness.? No paravertebral hematomas.? No apical pneumothoraces.? ? ? IMPRESSION:? No acute abnormality is seen. ? Focal C5-C6 degenerative change. ? If it would be helpful for clinical management decision making in this patient with this given history, please consider a dedicated cervical spine MRI for further evaluation (assuming that there is no contraindication).? ? Dictated by: Isra Caicedo M.D. on 01/21/2022 at 10:59 ? ? Approved by: Isra Caicedo M.D. on 01/21/2022 at 11:01 ? MDM Narrative Medical decision making narrative: This is a 61-year-old male presents to the emergency department with worsening radiculopathy symptoms from his cervical spine. He states that he is had neck pain for approximately 2 years which has been progressively getting worse now with bilateral radiculopathy to his upper extremities. He states 1 week ago he was in his garage, lifted something heavy in turn, did not have any sharp pain or acute pain but had gradual worsening with numbness and tingling now going to bilateral upper extremities instead of just his right upper extremity. Patient endorses mild weakness, states he is taking Tylenol for his pain, has not taking any anti-inflammatories, take baby aspirin only, does not have history of diabetes. CT of his cervical spine and his head were completed a without contrast, these orders were placed prior to my arrival today. Head CT is without acute intracranial abnormality, cervical spine CT shows degenerative changes C5-C6 without acute abnormality, patient has not tried anti- inflammatories, since his radiculopathy symptoms are worsening, opted to treat him with anti-inflammatories, steroids, topical lidocaine patches, muscle re laxer sees as needed and encouraging patient to follow-up with his PCP for a referral to physical therapy and advanced imaging as needed. Patient is appropriate and amenable to discharge home. Vital signs are stable on repeat examination is unremarkable. Patient has been informed of results. Patient has been given strict return to ER precautions for any new or worsening symptoms. Patient understands to follow up closely with outpatient providers as instructed. Patient understands plan and agrees to discharge home. All questions and concerns answered at this time. Discharge Plan Departure Patient Disposition: Home Clinical Impression: Cervical radiculopathy Degenerative disk disease Qualifiers: Spinal region: mid-cervical Mid-cervical spinal level: C5-C6 Qualified Code(s): M50.322 - Other cervical disc degeneration at C5-C6 level Instructions: Degenerative Disc Disease, DI for Cervical Radiculopathy Activity Restrictions/Additional Instructions: *You have been diagnosed with degenerative disc disease, this is likely an exacerbation of your arthralgia here. Hopefully you have improvement from the steroid, muscle relaxers, anti-inflammatories and nerve pain medicine. Please take Tylenol in addition to this to help treat your pain, remember to take food and water with anti-inflammatories and steroids to prevent gastric ulcer. Please stay on your omeprazole. Please drink plenty of water, practice good hydrate, try to avoid exacerbation of this. I hope you feel better soon. I added [facility] below, you may call and follow-up with them, when follow-up with Dr. Saravia, ask for referral to physical therapy and for advanced imaging if needed beyond the CT. I hope you feel better soon *What to do: *Please continue to take your regular medications as directed. [x ] New medication prescriptions sent to your pharmacy: [ [facility]] [ ] New medication written as a paper prescription [ ] No new medications given *Please follow up with your primary care provider in 2-3 days, call for an appointment. Let them know you were seen in the Emergency Department and that we asked that you be seen for follow-up. We will electronically transmit a record of today's note if your PCP is in our system *If you do not have a primary care provider please contact [phone] to establish care with one of the [facility] primary care providers. *Return to Emergency Department if you should have any new, worsening, or concerning symptoms, such as [fever greater than 101F, chills, worsening pain, persistent vomiting or other bothersome symptoms]. Prescriptions: New methocarbamol 750 mg tablet 750 mg PO Q8H PRN (Reason: muscle spasm) Qty: 20 0RF lidocaine [Lidoderm] 5 % adhesive patch,medicated 1 patch topical DAILY Qty: 15 0RF Rx Instructions: leave on most painful area for up to 12 hrs gabapentin 300 mg capsule 300 mg PO BEDTIME PRN (Reason: numbness and tingling) Qty: 30 0RF No Action azithromycin 250 mg tablet See Rx Instructions PO .COMPLEX Qty: 6 0RF Rx Instructions: Take 2 tablets (500mg) by mouth today (day 1), then 1 tablet (250mg) by mouth for 4 days (days 2-5). Finish all of this medication. cyclobenzaprine 5 mg tablet 5 mg PO TID PRN (Reason: muscle spasm) Qty: 20 0RF Syringes IM SEE INSTRUCTIONS Qty: 7 3RF tadalafil 20 mg tablet 10 - 20 mg PO DAILY PRN (Reason: sexual activity) Qty: 45 4RF Rx Instructions: take approx 30min before activity; do not use more than 1 dose/day mometasone-formoterol 100-5 mcg/actuation HFA aerosol inhaler 2 puff inhalation BID Qty: 13 3RF omeprazole 40 mg capsule,delayed release(DR/EC) 40 mg PO DAILY Qty: 90 3RF lisinopril 20 mg tablet 20 mg PO DAILY Qty: 90 3RF Paxlovid (EUA) 150 mg x 2- 100 mg tablet See Rx Instructions PO .COMPLEX Qty: 30 0RF Rx Instructions: take TWO 150 mg tablets of nirmatrelvir with ONE 100 mg tablet of ritonavir twice daily for 5 days PO testosterone cypionate [Depo-Testosterone] 200 mg/mL oil 450 mg IM .[id number] Qty: 45 0RF BD Luer-Hannah Syringe 3 mL 20 gauge x 1 syringe See Rx Instructions .ROUTE .COMPLEX Qty: 7 2RF Dose Instruction: USE ONE SYRINGE EVERY 4 WEEKS WITH TESTOSTERONE. Rx Instructions: USE ONE SYRINGE EVERY 4 WEEKS WITH TESTOSTERONE. levothyroxine 175 mcg tablet 175 mcg PO DAILY Qty: 90 0RF Rx Instructions: pt will need to be seen before next fill 12/20/21 bupropion HCl 150 mg tablet sustained-release 12 hr 150 mg PO BID Qty: 180 0RF Rx Instructions: pt will need to be seen before next fill 12/20/21 hydrochlorothiazide 25 mg tablet 25 mg PO DAILY Qty: 90 0RF albuterol sulfate 90 mcg/actuation HFA aerosol inhaler 1 inh INHALATION Q4-6H PRN (Reason: wheeze) Qty: 6.7 3RF Chantix Continuing Month Box 1 mg tablet 1 mg PO BID Qty: 56 7RF Referrals: [facility] [Provider Group] Michel Interiano DO [Physician] - Stefan Saravia MD [Primary Care Provider] - Visit Report Forms: Patient Portal/API <Winnie Louis DO - Last Filed: 02/04/22 10:59> Cosign ED Attending Cristy Attestation: I was immediately available in the department for consultation. Documentation has been reviewed.
[2022-01-21] MEDS: LIDOCAINE PATCH 1 EACH ADH..PATCH TOP (15:30)
[2022-01-21] MEDS: methocarbamoL 500 MG TABLET 750 MG PO (15:30)
[2022-01-21] MEDS: HYDROCODONE/ACET 5/325 TABLET 1 TAB PO (15:30)
[2022-01-21] MEDS: KETOROLAC 30 MG/ML VIAL IM (15:31)
[2022-01-21 16:11] VITALS: BP 134/63; PULSE 56; RESP 18; O2SAT 96
== END 2022-01-21 16:11 | disposition home or self-care (01) ==
PROVIDERS: Emergency Provider Nurse Practitioner Critical Care Medicine; Family Provider Internal Medicine; PCP Internal Medicine
DX: M54.12 Radiculopathy, cervical region (principal); M50.322 Other cervical disc degeneration at C5-C6 level
CPT/HCPCS: 70450; 72125; 96372; 99284; J1885

== ENCOUNTER → 2022-03-10 18:42 | Outpatient (CLI) | payer OTHER, SELFPAY ==
--- NOTE | 2022-03-10 18:43 | DI.RAD.S_ITS ---
PROCEDURE: XR ELBOW RT MIN 3V INDICATIONS: Right shoulder injury TECHNIQUE: 3 views of the elbow were acquired. COMPARISON: None. FINDINGS: Bones: Small posterior olecranon spur with overlying soft tissue edema. Suggestion of possible fracture of the spur. Otherwise, no other acute fractures identified . Degenerative changes of the elbow. No dislocations. No suspicious bony lesions. Soft tissues: No substantial anterior elbow joint effusion. No suspicious soft tissue calcifications. Moderate soft tissue swelling of the proximal forearm and distal upper arm/elbow. IMPRESSION: 1. Moderate soft tissue swelling of the posterior elbow overlying small olecranon spurring with suggestion of possible fracture of the spur. Otherwise, no acute fracture identified. 2. Mild degenerative changes of the elbow. If there is persistent clinical concern for occult fracture given adequate mechanism of injury, consider repeat imaging in 10-14 days. Dictated by: Carlos Fried M.D. on 03/10/2022 at 20:24 Approved by: Carlos Fried M.D. on 03/10/2022 at 20:28
--- NOTE | 2022-03-10 18:43 | DI.RAD.S_ITS ---
PROCEDURE: XR SHOULDER RT MIN 2V INDICATIONS: Right shoulder injury TECHNIQUE: 3 views of the shoulder were acquired. COMPARISON: None. FINDINGS: Bones: No fractures or dislocations. No suspicious bony lesions. Visualized ribs appear intact. Moderate hypertrophic osteoarthrosis of the right acromioclavicular joint with undersurface spurring. Coracoclavicular and acromioclavicular intervals are maintained. Soft tissues: No suspicious soft tissue calcifications. IMPRESSION: Right shoulder without acute fracture or dislocation. Moderate hypertrophic osteoarthritic changes of the right acromioclavicular joint with undersurface irregularity/spurring. Dictated by: Carlos Fried M.D. on 03/10/2022 at 20:23 Approved by: Carlos Fried M.D. on 03/10/2022 at 20:24
== END ==
PROVIDERS: Family Provider Internal Medicine; PCP Internal Medicine; Referring Provider Registered Nurse; Visit Provider Registered Nurse
DX: M79.601 Pain in right arm (principal); M79.89 Other specified soft tissue disorders
CPT/HCPCS: 73030; 73080

== ENCOUNTER 2022-08-17 11:33 | Emergency (ER) | payer OTHER, SELFPAY ==
[2022-08-17 11:35] VITALS: BP 188/90; PULSE 60; RESP 16; TEMP 36.6; O2SAT 95; BMI 40.0
--- NOTE | 2022-08-17 11:54 | DI.MRI.S_ITS ---
PROCEDURE: MR CERVICAL SPINE WO CON INDICATIONS: Limb weakness bilaterally TECHNIQUE: Noncontrast sagittal T1 spin echo and T2 fast spin echo, sagittal STIR, foraminal oblique sagittal T2 fast spin echo, and axial gradient echo or T2 fast spin echo through the cervical spine. COMPARISON: [facility], , C-SPINE WITHOUT CONTRAST, 07/14/2006, 7:00. FINDINGS: Image quality: Excellent. Alignment and Curvature: There is normal bony alignment. Bone Marrow: Marrow demonstrates normal overall signal. Spinal Cord: Visualized spinal cord has normal size and signal. No cerebellar tonsillar herniation. Paraspinous Soft Tissues: No paravertebral masses. Prevertebral soft tissues are normal in thickness. C2-C3: Disc bulge. No canal stenosis. No canal stenosis or foraminal stenosis. C3-C4: Mild central posterior disc protrusion indenting minimally on the cord. AP diameter of the central canal is 10.9 mm. There is bilateral uncovertebral joint hypertrophy, prominent on the left. There is moderate to severe left foraminal narrowing with a degree of left foraminal C4 nerve root impingement. There is moderate right foraminal narrowing. C4-C5: Disc bulge. AP diameter of the canal is 10.9 mm. There is left uncovertebral joint hypertrophy with moderate to severe left foraminal narrowing and a mild degree of left foraminal C5 nerve root impingement. C5-C6: Disc bulge. AP diameter of the canal is 11.3 mm. Bilateral uncovertebral joint hypertrophy, prominent on the left. Left facet hypertrophy. There is severe left foraminal narrowing with left foraminal C6 nerve root impingement. C6-C7: No canal stenosis or foraminal stenosis. C7-T1: No canal stenosis or foraminal stenosis. IMPRESSION: 1. Multilevel uncovertebral joint hypertrophy. 2. Multilevel disc bulges. 3. No canal stenosis. 4. Multilevel foraminal narrowing as described above. Findings include moderate to severe left foraminal narrowing at C3-C4 and C4-C5. There is severe left foraminal narrowing at C5-C6. Dictated by: Nael Valero M.D. on 08/17/2022 at 15:44 Approved by: Nael Valero M.D. on 08/17/2022 at 15:49
--- NOTE | 2022-08-17 11:55 | DI.MRI.S_ITS ---
PROCEDURE: MR STROKE Pre- and post-contrast brain MRI, non-contrast brain MR angiogram, pre- and postcontrast neck MR angiogram INDICATIONS: Right arm weakness TECHNIQUE: Brain: Noncontrast axial T1 spin echo, axial T2 fast spin echo, sagittal and axial FLAIR, coronal T2 fast spin echo, axial gradient echo, axial diffusion and ADC through the brain. After the administration of contrast, axial 3D VIBE of the cranial vasculature and brain. Brain MRA: Non-contrast 3-D time of flight MR angiogram, with multiple hixnkey-sdjftbtzq-jdzaxkspte (MIP) reformats performed. Neck MRA: Axial and sagittal TruFISP through the neck. Coronal dynamic MR angiogram during administration of contrast in the arterial and venous phases, with 3-dimenstional wuqjfps-asrrndojd-ctxxwuopoi (MIP) reformats constructed from subtraction images. COMPARISON: None. FINDINGS: Image quality: There is some patient motion artifact. BRAIN: CSF spaces: Ventricles are normal in size and shape. Basal cisterns are patent. No extra-axial fluid collections. Brain: No intracranial bleeds or mass effects. Nelson-white matter interface is normal. Diffusion weighted images show no acute ischemic insults. Brainstem appears normal. Normal intravascular flow voids are present. No abnormal intracranial enhancement. Skull and face: Calvarial marrow signal is normal. Orbits appear normal. Sinuses: Sinuses and mastoids are clear. BRAIN MR ANGIOGRAM: Patient motion artifact somewhat degrades the images. Anterior circulation: Intracranial internal carotid arteries are normal in size and enhancement. The flow within the paired anterior cerebral arteries is normal and symmetric. The flow within the middle cerebral arteries is normal and symmetric. The anterior communicating artery is seen. No stenoses, occlusions, or aneurysms. Posterior circulation: The visualized portions of the vertebral arteries demonstrate normal caliber, and join to form a normal appearing basilar artery. The flow within the posterior cerebral arteries is normal and symmetric. No stenoses, occlusions, or aneurysms. NECK MR ANGIOGRAM: Carotids: Great vessels demonstrate a conventional anatomy as they arise from the aortic arch. The origins of the common carotid arteries appear patent. The calibers and courses of both common carotid arteries are normal. The bifurcation regions appear normal bilaterally. The internal carotid arteries demonstrate normal course and caliber. Posterior circulation: The origins of the vertebral arteries appear patent. More superior portions of both vertebral arteries demonstrate normal course and caliber, and join to form a normal appearing basilar artery. Miscellaneous: Subclavian arteries appear patent. Pre-contrast images through the neck show no soft tissue abnormalities. IMPRESSION: BRAIN MRI: No acute intracranial process. Normal appearing brain parenchyma. BRAIN MR ANGIOGRAM: There is patient motion artifact. No aneurysms. No occlusions. NECK MR ANGIOGRAM: Patent internal carotids. Dictated by: Nael Valero M.D. on 08/17/2022 at 15:54 Approved by: Nael Valero M.D. on 08/17/2022 at 15:58
[2022-08-17 12:05] LABS: Add Manual Diff / Slide Review NO; Basophils Absolute Auto 100 /uL (0-100); Eosinophils Absolute Auto 200 /uL (0-450); Hematocrit 44.2 % (41-53); Hemoglobin 14.9 g/dL (13.5-17.5); Lymphocytes Absolute Auto 1800 /uL (1100-4500); Lymphocytes Percent Auto 21.6 % (25-40); Mean Corpuscular HGB Conc 33.7 % (30-36); Mean Corpuscular Hemoglobin 29.2 PG (26-34); Mean Corpuscular Volume 86.7 fL (80-100); Monocytes Absolute Auto 800 /uL (0-900); Monocytes Percent Auto 9.3 % (3-14); Neutrophils Absolute Auto 5300 /uL (1500-7000); Neutrophils Percent Auto 65.1 % (50-75); Platelet Count 227 X10^3/uL (150-400); Red Cell Distribution Width 15.7 % (11.6-14.8); White Blood Cell Count 8.2 X10^3/uL (4.5-11.0)
[2022-08-17 12:16] LABS: Alanine Aminotransferase 39 IU/L (<50); Albumin 4.4 g/dL (3.5-5.0); Albumin Globulin Ratio 1.3 (1.0-2.8); Alkaline Phosphatase 31 U/L (38-126); Aspartate Aminotransferase 32 IU/L (17-59); BUN Creatinine Ratio 24.4 (6-22); Bilirubin Total 0.4 mg/dL (0.2-1.3); Blood Urea Nitrogen 19 mg/dL (9-20); Carbon Dioxide 26 mmol/L (22-32); Chloride 98 mmol/L (98-107); Creatine Kinase 321 U/L (55-170); Estimated Glomerular Filt Rate > 60 mL/min (>60); Globulin 3.5 g/dL (1.7-4.1); Glucose 118 mg/dL (80-110); HEMOLYSIS 28 (0-50); Potassium 3.4 mmol/L (3.4-5.1); Sodium 135 mmol/L (137-145); Total Protein 7.9 g/dL (6.3-8.2)
[2022-08-17 12:28] LABS: Troponin I < 0.012 ng/mL (0.01-0.034)
[2022-08-17] MEDS: diazePAM 10 MG/2 ML SYRINGE 5 MG IV (14:10)
[2022-08-17 14:21] VITALS: BP 145/71; PULSE 67; O2SAT 95
--- NOTE | 2022-08-17 17:01 | ED_ITS ---
HPI - Neuro Symptoms/Deficit General Chief Complaint: Neuro Symptoms/Deficit Stated Complaint: rt arm numb legs numb Time Seen by Provider: 08/17/22 11:54 History of Present Illness HPI Narrative: Patient here for sudden onset of right arm heaviness weakness and right-sided neck pain and headache as well as bilateral feet heaviness and weakness. Patient was at work when this occurred at 10:45 a.m. this morning. At this time not consistent with stroke. at bedside. They both state this is not new. Patient has had limb weakness in the past year. He is not had MRI. No history of multiple sclerosis. No history of brain cancer in the family. Denies any chest pain. However patient is anxious. Blood pressure is noted. He is on Neurontin and methocarbamol for his spine problems. Has not had any problems with his lumbar spine in the past. Denies denies any chest pain lower back pain mid back pain or abdominal pain. No history aneurysm. Patient denies any new injuries. No recent illness. Blood pressure noted and he is anxious. And does have a mild headache. It is diffuse. It is diffuse and not worse of his life. He has been seen at this emergency department for similar complaints On Anticoagulants: No Related Data Previous Rx's Medication Instructions Recorded Syringes syr IM SEE INSTRUCTIONS ##7 05/02/17 varenicline 1 mg tablet (Chantix 1 mg PO BID #56 tabs 04/22/19 Continuing Month Box) tadalafil 20 mg tablet 10 - 20 mg PO DAILY PRN sexual 04/12/21 activity #45 tabs mometasone-formoterol HFA 100 2 puff inhalation BID #13 grams 04/19/21 mcg-5 mcg/actuation aerosol inhaler syringe with needle 3 mL 20 gauge See Rx Instructions .Route 10/25/21 x 1 (BD Luer-Hannah Syringe) .COMPLEX #7 ea cyclobenzaprine 5 mg tablet 5 mg PO TID PRN muscle spasm #20 12/27/21 tabs gabapentin 300 mg capsule 300 mg PO BEDTIME PRN numbness and 01/21/22 tingling #30 caps albuterol sulfate 90 mcg/actuation 1 inh inhalation Q4-6H PRN wheeze 01/24/22 aerosol inhaler #6.7 grams dexamethasone 2 mg tablet 2 mg PO TID #12 tabs 02/07/22 hydrochlorothiazide 25 mg tablet 25 mg PO DAILY #90 tabs 02/17/22 testosterone cypionate 200 mg/mL 450 mg (2.25 mL) IM .m0zbuos #45 mL 02/18/22 intramuscular oil (Depo-Testosterone) lidocaine 5 % topical patch 1 patch topical DAILY #15 ea 03/24/22 (Lidoderm) methocarbamol 750 mg tablet 750 mg PO Q8H PRN muscle spasm #30 03/24/22 tabs bupropion HCl 150 mg tablet,12 hr 150 mg PO BID #180 tabs 06/20/22 sustained-release levothyroxine 175 mcg tablet 175 mcg PO DAILY #90 tabs 06/20/22 omeprazole 40 mg capsule,delayed 40 mg PO DAILY #90 caps 06/20/22 release Allergies Allergy/AdvReac Type Severity Reaction Status Date / Time lisinopril AdvReac Mild Cough Verified 04/19/22 09:57 Review of Systems Review of Systems Narrative: GENERAL: negative chills, fatigue, malaise, fever, sweats. HEENT: negative sinus pain, ear pain, sore throat RESPIRATORY: negative dyspnea, cough CARDIOVASCULAR: negative chest pain, palpitations GASTROINTESTINAL: negative nausea, vomiting, abdominal pain : negative dysuria, frequency, hematuria MUSCULOSKELETAL: negative muscle or bony pain SKIN: negative rash, skin lesions NEUROLOGIC: Positive headache, weakness, numbness ROS Unobtainable: All systems reviewed & are unremarkable except as noted in HPI and below Hematologic/Lymphatic On Anticoagulants: No Patient History Medical History Acquired hypothyroidism (11/11/10) Aortic stenosis Asthma, mild persistent BMI 38.0-38.9,adult Chronic headaches (02/22/06) Closed head injury (02/22/06) Essential hypertension (11/12/15) Excessive daytime sleepiness Gastroesophageal reflux disease GERD (gastroesophageal reflux disease) Hearing loss (2007) Hematuria Hyperlipidemia (11/11/10) Hypogonadism in male (08/13/12) Hypothyroidism (1994) Low testosterone in male (2009) Obstructive sleep apnea of adult Post-traumatic headache, not intractable (03/25/13) Recurrent major depressive disorder, in full remission (01/01/14) Strain of right rotator cuff capsule Surgical History History of knee replacement (2003) History of vasectomy (04/2010) Status post knee surgery (08/07/17) Family History Brother Diabetes mellitus Father Diabetes mellitus Heart attack Mother Cancer Diabetes mellitus Stroke Sister Diabetes mellitus Social History marital status: number of children: 2 household members: spouse lives independently: Yes caregiver/support person: No housing: house pets and animals: Yes education level: college occupational status: employed current occupational exposures/hazards: No Previous occupational history: 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 EYES: Pupils equal round ENT: Mucous membranes moist. NECK: Trachea midline. CARDIOVASCULAR: Regular rate and rhythm without murmurs RESPIRATORY: Clear to auscultation. Breath sounds equal bilaterally. No wheezes, rales, or rhonchi. GASTROINTESTINAL: Abdomen soft, non-tender EXTREMITIES: No gross deformities. BACK: No flank tenderness. NEURO: AOx4. Clear speech no facial droop light touch intact to bilateral face, slight sensory difference with light touch to the upper arm forearm fingers and thumb on the right side compared to the left. Patient is able to lift each foot actively but slowly. He states they both feel very weak. Light touch intact to bilateral legs/ankles. No altered mental status. He is awake alert oriented x4. SKIN: Warm and dry PSYCH: Is moderately anxious, is cooperative Initial Vital Signs Initial Vital Signs: Vital Signs Temperature 97.9 F 08/17/22 11:35 Pulse Rate 60 08/17/22 11:35 Respiratory Rate 16 08/17/22 11:35 Blood Pressure 188/90 H 08/17/22 11:35 Pulse Oximetry 95 08/17/22 11:35 Oxygen Delivery Method Room Air 08/17/22 11:35 Course Orders Ordered: Discontinued Medications Diazepam (Diazepam 10 Mg/2 Ml Syringe) 5 mg IV NOW ONE Stop: 08/17/22 14:01 Last Admin: 08/17/22 14:10 Dose: 5 mg Documented By: ALFONSO Vital Signs Vital signs: Vital Signs - 8 hr 08/17/22 11:35 08/17/22 14:21 08/17/22 17:07 Temperature 97.9 F Pulse Rate 60 67 Respiratory Rate 16 Blood Pressure 188/90 H 145/71 H Pulse Oximetry 95 95 99 Oxygen Delivery Method Room Air Room Air 08/17/22 17:08 08/17/22 17:08 Temperature Pulse Rate 60 Respiratory Rate Blood Pressure 134/74 Pulse Oximetry 97 Oxygen Delivery Method Room Air MDM - Neuro Symptoms/Deficit Lab Data 08/17/22 11:55 08/17/22 11:55 Labs: Lab Results 08/17/22 08/17/22 Range/Units 11:55 11:55 WBC 8.2 (4.5-11.0) X10^3/uL RBC 5.10 (4.5-5.9) X10^6/uL Hgb 14.9 (13.5-17.5) g/dL Hct 44.2 (41-53) % MCV 86.7 (80-100) fL MCH 29.2 (26-34) PG MCHC 33.7 (30-36) % RDW 15.7 H (11.6-14.8) % Plt Count 227 (150-400) X10^3/uL Neut % (Auto) 65.1 (50-75) % Lymph % (Auto) 21.6 L (25-40) % [place] % (Auto) 9.3 (3-14) % Eos % (Auto) 3.0 (2-4) % Baso % (Auto) 1.0 (0-2) % Neut # (Auto) 5300 (3527-5044) /uL Lymph # (Auto) 1800 (1091-4868) /uL [place] # (Auto) 800 (0-900) /uL Eos # (Auto) 200 (0-450) /uL Baso # (Auto) 100 (0-100) /uL Sodium 135 L (137-145) mmol/L Potassium 3.4 (3.4-5.1) mmol/L Chloride 98 (98-107) mmol/L Carbon Dioxide 26 (22-32) mmol/L BUN 19 (9-20) mg/dL Creatinine 0.78 (0.66-1.25) mg/dL Estimated GFR > 60 (>60) mL/min BUN/Creatinine Ratio 24.4 H (6-22) Glucose 118 H (80-110) mg/dL Calcium 9.0 (8.4-10.2) mg/dL Total Bilirubin 0.4 (0.2-1.3) mg/dL AST 32 (17-59) IU/L ALT 39 (<50) IU/L Alkaline Phosphatase 31 L (38-126) U/L Total Creatine Kinase 321 H (55-170) U/L CK-MB (CK-2) TNP CK-MB (CK-2) Rel Index TNP Troponin I < 0.012 (0.01-0.034) ng/mL Total Protein 7.9 (6.3-8.2) g/dL Albumin 4.4 (3.5-5.0) g/dL Globulin 3.5 (1.7-4.1) g/dL Albumin/Globulin Ratio 1.3 (1.0-2.8) Imaging Data MRI stroke: Radiologist's Impression: [place] [address] Magnetic Resonance Report Signed Patient: Francis Osborne MR#: [id number] : 1960 Acct:[id number] Age/Sex: 61 / M Date of Service: 08/17/22 Loc: ED Accession Number: [id number] ?? Procedure: MR stroke Ordering Provider: Alfred Daley MD PROCEDURE:? MR STROKE Pre- and post-contrast brain MRI, non-contrast brain MR angiogram, pre- and postcontrast neck MR angiogram ? INDICATIONS:? Right arm weakness ? TECHNIQUE:? Brain:? Noncontrast axial T1 spin echo, axial T2 fast spin echo, sagittal and axial FLAIR, coronal T2 fast spin echo, axial gradient echo, axial diffusion and ADC through the brain.? After the administration of contrast, axial 3D VIBE of the cranial vasculature and brain.? Brain MRA:? Non-contrast 3-D time of flight MR angiogram, with multiple qazettn-jcslrjflp-gmbmvgflqf (MIP) reformats performed.? Neck MRA:? Axial and sagittal TruFISP through the neck.? Coronal dynamic MR angiogram during administration of contrast in the arterial and venous phases, with 3- dimenstional tylhqdr-vnoiesqvm-qywunnfeza (MIP) reformats constructed from subtraction i judd.? ? COMPARISON:? None. ? FINDINGS:? Image quality:? There is some patient motion artifact.? ? BRAIN:? CSF spaces:? Ventricles are normal in size and shape.? Basal cisterns are patent.? No extra-axial fluid collections.? Brain:? No intracranial bleeds or mass effects.? Nelson-white matter interface is normal.? Diffusion weighted images show no acute ischemic insults.? Brainstem appears normal.? Normal intravascular flow voids are present.? No abnormal intracranial enhancement.? Skull and face:? Calvarial marrow signal is normal.? Orbits appear normal.? Sinuses:? Sinuses and mastoids are clear.? ? BRAIN MR ANGIOGRAM:? Patient motion artifact somewhat degrades the images.? Anterior circulation:? Intracranial internal carotid arteries are normal in size and enhancement.? The flow within the paired anterior cerebral arteries is normal and symmetric.? The flow within the middle cerebral arteries is normal and symmetric.? The anterior communicating artery is seen.? No stenoses, occlusions, or aneurysms.? Posterior circulation:? The visualized portions of the vertebral arteries demonstrate normal caliber, and join to form a normal appearing basilar artery.? The flow within the posterior cerebral arteries is normal and symmetric.? No stenoses, occlusions, or aneurysms.? ? NECK MR ANGIOGRAM:? Carotids:? Great vessels demonstrate a conventional anatomy as they arise from the aortic arch.? The origins of the common carotid arteries appear patent.? The calibers and courses of both common carotid arteries are normal.? The bifurcation regions appear normal bilaterally.? The internal carotid arteries demonstrate normal course and caliber. ? Posterior circulation:? The origins of the vertebral arteries appear patent.? More superior portions of both vertebral arteries demonstrate normal course and caliber, and join to form a normal appearing basilar artery.? Miscellaneous:? Subclavian arteries appear patent.? Pre-contrast images through the neck show no soft tissue abnormalities.? ? IMPRESSION:? ? BRAIN MRI:? No acute intracranial process.? Normal appearing brain parenchyma. ? BRAIN MR ANGIOGRAM:? There is patient motion artifact.? No aneurysms.? No occlusions. ? NECK MR ANGIOGRAM:? Patent internal carotids. ? ? Dictated by: Nael Valero M.D. on 08/17/2022 at 15:54 ? ? Approved by: Nael Valero M.D. on 08/17/2022 at 15:58 ? MRI cervical spine: Radiologist's Impression: [address] [address] Magnetic Resonance Report Signed Patient: Francis Osborne MR#: [id number] : 1960 Acct:[id number] Age/Sex: 61 / M Date of Service: 08/17/22 Loc: ED Accession Number: [id number] ?? Procedure: MR cervical spine wo con Ordering Provider: Alfred Daley MD PROCEDURE:? MR CERVICAL SPINE WO CON ? INDICATIONS:? Limb weakness bilaterally ? TECHNIQUE:? Noncontrast sagittal T1 spin echo and T2 fast spin echo, sagittal STIR, foraminal oblique sagittal T2 fast spin echo, and axial gradient echo or T2 fast spin echo through the cervical spine.? ? COMPARISON:? [facility], MR, C-SPINE WITHOUT CONTRAST, 07/14/2006, 7:00. ? FINDINGS:? Image quality:? Excellent.? ? Alignment and Curvature:? There is normal bony alignment.? ? Bone Marrow:? Marrow demonstrates normal overall signal.? ? Spinal Cord:? Visualized spinal cord has normal size and signal.? No cerebellar tonsillar herniation.? ? Paraspinous Soft Tissues:? No paravertebral masses.? Prevertebral soft tissues are normal in thickness.? ? C2-C3:? Disc bulge.? No canal stenosis. No canal stenosis or foraminal stenosis. ? C3-C4:? Mild central posterior disc protrusion indenting minimally on the cord.? AP diameter of the central canal is 10.9 mm.? There is bilateral uncovertebral joint hypertrophy, prominent on the left.? There is moderate to severe left foraminal narrowing with a degree of left foraminal C4 nerve root impingement.? There is moderate right foraminal narrowing.? ? C4-C5:? Disc bulge.? AP diameter of the canal is 10.9 mm.? There is left uncovertebral joint hypertrophy with moderate to severe left foraminal narrowing and a mild degree of left foraminal C5 nerve root impingement.? ? C5-C6:? Disc bulge.? AP diameter of the canal is 11.3 mm.? Bilateral uncovertebral joint hypertrophy, prominent on the left.? Left facet hypertrophy.? There is severe left foraminal narrowing with left foraminal C6 nerve root impingement.? ? C6-C7:? No canal stenosis or foraminal stenosis. ? C7-T1:? No canal stenosis or foraminal stenosis. ? IMPRESSION:? ? 1. Multilevel uncovertebral joint hypertrophy. ? 2. Multilevel disc bulges. ? 3. No canal stenosis. ? 4. Multilevel foraminal narrowing as described above.? Findings include moderate to severe left foraminal narrowing at C3-C4 and C4-C5.? There is severe left foraminal narrowing at C5-C6.? ? ? Dictated by: Nael Valero M.D. on 08/17/2022 at 15:44 ? ? Approved by: Nael Valero M.D. on 08/17/2022 at 15:49 ? MDM Narrative Medical decision making narrative: After history and exam CBC CMP MRI brain/stroke protocol, MRI cervical spine MDM CC: Right arm discomfort bilateral feet weakness Complicating co-morbidities: History of cervical spine disease Data collected from: Patient and Medical records reviewed: No recent visit for this complaint, seen here January 21, 2022 for cervical radiculopathy Differential considered: Includes but not limited to stroke TIA cervical radiculopathy Exam documented above, pertinent findings include: Right arm sensation slightly different than left. Bilateral leg heaviness Lab Test results independently reviewed as above. Pertinent findings: WBC 8.2 hemoglobin 14.9 hematocrit 44.2 sodium 135 potassium 3.4 GFR greater than 60 troponin less than 0.012 Independently reviewed EKG it was ordered on arrival however was not completed at time of discharge, patient had been seen here July 17, 2020 for dyspnea and EKG at that time was sinus rhythm rate of 66 Imaging studies independently reviewed: MRI stroke protocol MRI cervical spine no acute finding of the brain, MRI cervical spine multilevel joint hypertrophy, multilevel disc bulges, no canal stenosis multilevel foraminal narrowing Consultations: None indicated at this time. Symptoms likely more consistent with cervical radiculopathy Treatments: Valium for MRI Re-evaluations: 5:00 p.m.. Patient's symptoms are resolved. No right arm weakness or numbness or tremors. Legs are no longer heavy or week. I reviewed results with patient and . They do understand and agree likely cervical radiculopathy. Family doctor is Dr. Saravia and they will follow up with him this week for ortho spine referral and physical therapy. He states he will resume taking his Neurontin and methocarbamol. Return precautions reviewed with him and and they are very comfortable with this plan. Reviewed with them tingling of the feet likely from anxiety and distress he was under when he 1st came in. agrees. He was very anxious when he came in. He had a headache at that time, and felt anxious. He agrees with that. Discussion: Appropriate for discharge home. Exam and laboratory studies and MRI imaging are reassuring. Patient likely developing cervical radiculopathy on the right. Even though the left is more severe findings but this right side finding might be new causing more stress with him. Symptoms have resolved. Likely not a stroke and patient and agrees. Given distribution of his neuro complaints. Especially with bilateral feet heaviness and numbness. That was likely due to anxiety. Patient at baseline with no neuro deficits at time of discharge. Return precautions reviewed with him. He desires discharge home. Blood pressure improved at time of discharge. He is much more relaxed. Blood pressure 134/74 heart rate 60 at time of discharge Diagnosis: Cervical radiculopathy Discharge Plan Departure Patient Disposition: Home Clinical Impression: Cervical radiculopathy Instructions: DI for Cervical Radiculopathy Activity Restrictions/Additional Instructions: Please see your family doctor this week for re-evaluation and to schedule for physical therapy or possibly ortho search engine optimization specialist. Please do continue your Neurontin and methocarbamol. At this time laboratory studies and MRI imaging are reassuring of the brain and the cervical spine. Return if worse if any questions or concerns. Please read the literature regarding cervical radiculopathy that has been provided for you. No new medications or prescriptions are needed at this time Prescriptions: No Action cyclobenzaprine 5 mg tablet 5 mg PO TID PRN (Reason: muscle spasm) Qty: 20 0RF Syringes IM SEE INSTRUCTIONS Qty: 7 3RF tadalafil 20 mg tablet 10 - 20 mg PO DAILY PRN (Reason: sexual activity) Qty: 45 4RF Rx Instructions: take approx 30min before activity; do not use more than 1 dose/day mometasone-formoterol 100-5 mcg/actuation HFA aerosol inhaler 2 puff inhalation BID Qty: 13 3RF BD Luer-Hannah Syringe 3 mL 20 gauge x 1 syringe See Rx Instructions .ROUTE .COMPLEX Qty: 7 2RF Dose Instruction: USE ONE SYRINGE EVERY 4 WEEKS WITH TESTOSTERONE. Rx Instructions: USE ONE SYRINGE EVERY 4 WEEKS WITH TESTOSTERONE. albuterol sulfate 90 mcg/actuation HFA aerosol inhaler 1 inh INHALATION Q4-6H PRN (Reason: wheeze) Qty: 6.7 3RF hydrochlorothiazide 25 mg tablet 25 mg PO DAILY Qty: 90 2RF testosterone cypionate [Depo-Testosterone] 200 mg/mL oil 450 mg IM .[id number] Qty: 45 0RF omeprazole 40 mg capsule,delayed release(DR/EC) 40 mg PO DAILY Qty: 90 2RF levothyroxine 175 mcg tablet 175 mcg PO DAILY Qty: 90 1RF bupropion HCl 150 mg tablet sustained-release 12 hr 150 mg PO BID Qty: 180 0RF Chantix Continuing Month Box 1 mg tablet 1 mg PO BID Qty: 56 7RF methocarbamol 750 mg tablet 750 mg PO Q8H PRN (Reason: muscle spasm) Qty: 30 1RF lidocaine [Lidoderm] 5 % adhesive patch,medicated 1 patch topical DAILY Qty: 15 1RF Rx Instructions: leave on most painful area for up to 12 hrs dexamethasone 2 mg tablet 2 mg PO TID Qty: 12 0RF gabapentin 300 mg capsule 300 mg PO BEDTIME PRN (Reason: numbness and tingling) Qty: 30 0RF Referrals: Stefan Saravia MD [Primary Care Provider] - Stand Alone Forms: Patient Portal/API
[2022-08-17 17:07] VITALS: O2SAT 99
[2022-08-17 17:08] VITALS: BP 134/74; PULSE 60; O2SAT 97
== END 2022-08-17 17:16 | disposition home or self-care (01) ==
PROVIDERS: Emergency Provider Emergency Medicine; Family Provider Internal Medicine; PCP Internal Medicine
DX: M54.12 Radiculopathy, cervical region (principal); R29.818 Other symptoms and signs involving the nervous system; R53.1 Weakness; Z79.899 Other long term (current) drug therapy
CPT/HCPCS: 36415; 70548; 70553; 72141; 80053; 82550; 84484; 85025; 96374; 99284; J3360

== ENCOUNTER → 2022-10-22 07:55 | Outpatient (CLI) | payer OTHER, SELFPAY ==
[2022-10-22 09:22] LABS: Hemoglobin A1C% w Est Avg Glu 6.1 % (4.0-6.0)
[2022-10-22 10:37] LABS: BUN Creatinine Ratio 22.5 (6-22); Blood Urea Nitrogen 18 mg/dL (9-20); Calcium 9.3 mg/dL (8.4-10.2); Carbon Dioxide 29 mmol/L (22-32); Chloride 100 mmol/L (98-107); Cholesterol 178 mg/dL (140-199); Estimated Glomerular Filt Rate > 60 mL/min (>60); Glucose 103 mg/dL (80-110); HDL Cholesterol 33 mg/dL (40-60); HEMOLYSIS < 15 (0-50); LDL Cholesterol Calculated 117 mg/dL (<100); Potassium 3.8 mmol/L (3.4-5.1); Sodium 139 mmol/L (137-145); Triglycerides 142 mg/dL (35-150)
[2022-10-22 10:57] LABS: Free T4, Direct Thyroxine 0.82 ng/dL (0.78-2.19)
[2022-10-22 11:11] LABS: Prostate Specific Antigen Scrn 1.45 ng/mL (0.1-4.0); Thyroid Stimulating Hormone 13.8 uIU/mL (0.47-4.68)
[2022-10-29 12:25] LABS: Percent Free Testosterone 4.27 % (1.50-4.20); Testosterone Free 9.85 ng/dL (5.00-21.00); Testosterone Total 230.6 ng/dL (264.0-916.0)
== END ==
PROVIDERS: Family Provider Internal Medicine; PCP Internal Medicine; Referring Provider Internal Medicine; Visit Provider Internal Medicine
DX: E03.9 Hypothyroidism, unspecified (principal); E78.5 Hyperlipidemia, unspecified; I10 Essential (primary) hypertension; R73.9 Hyperglycemia, unspecified; Z12.5 Encounter for screening for malignant neoplasm of prostate
CPT/HCPCS: 36415; 80048; 80061; 83036; 84402; 84403; 84439; 84443; G0103

== ENCOUNTER 2022-11-09 15:30 | Outpatient (RCR) | payer OTHER, SELFPAY ==
--- NOTE | 2022-10-13 17:34 | PT.OIE ---
Current Diagnoses Other chronic pain (10/13/22) Pain in right shoulder (10/13/22) Pain in left shoulder (10/13/22) Radiculopathy, cervical region (10/13/22) Past Medical History (Last Reviewed 10/06/22 @ 12:05 by Stefan Saravia MD) Acquired hypothyroidism (11/11/10) Aortic stenosis Asthma, mild persistent BMI 38.0-38.9,adult Chronic headaches (02/22/06) Closed head injury (02/22/06) Essential hypertension (11/12/15) Excessive daytime sleepiness Gastroesophageal reflux disease GERD (gastroesophageal reflux disease) Hearing loss (2007) Hematuria Hyperlipidemia (11/11/10) Hypogonadism in male (08/13/12) Hypothyroidism (1994) Low testosterone in male (2009) Obstructive sleep apnea of adult Post-traumatic headache, not intractable (03/25/13) Recurrent major depressive disorder, in full remission (01/01/14) Strain of right rotator cuff capsule Past Surgical History (Last Reviewed 10/06/22 @ 12:05 by Stefan Saravia MD) History of knee replacement (2003) History of vasectomy (04/2010) Status post knee surgery (08/07/17) Visit Care Team Role Provider Type Stefan Saravia MD Family Provider Physician Primary Care Provider Specialty: Internal Medicine Address: [address] [place] [address], [address], [address] Email: [email or web address] Paco Jasso DO Attending Provider Non-Staff Referring Provider Specialty: Orthopedic Surgery Address: [facility] [address], [place], [address] Email: Physical Therapy Initial Evaluation PT-OP-A Visit Information Start: 10/13/22 15:45 Freq: Status: Active Protocol: Document 10/13/22 15:46 AB (Rec: 10/13/22 17:33 AB [id number]) Out-Patient Physical Therapy Visit Information Visit Information Visit Type Initial Evaluation Visit Start Time 16:00 Visit Stop Time 16:50 Total Visit Minutes 50 Visit Number 1 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 History of Current Condition Pt reports his symptoms have been occurring on and off since before the start of the COVID pandemic. He states a couple of months ago while he was at work, he began experiencing LUE weakness and loss of control/coordination, and went to the ER. Work up and imaging done at ER revealed no significant findings such as stroke. Yard work, standing for prolonged periods, heavy lifting, moving his head. Prescribed pain medication helped his symptoms tremendously. Heat and ice help to relieve his symptoms. Prior Treatments and Tests MRI, EMG Future Testing and Treatments Planned Follow up with Dr. Jasso on . Treatment Goals Patient/Caregiver Goals To improve his symptoms and regain strength. Prior Functional Status Baseline Function- ADL's Independent Baseline Function- Mobility Independent Current Functional Impairments (Reported) Functional Limitations- ADL's Pt has symptoms with ADLs that involve a lot of UE use. Functional Limitations- Work/School Pt has symptoms at time while at work but is able to work through them. PT-OP-C Subjective Start: 10/13/22 15:45 Freq: Status: Active Protocol: Document 10/13/22 15:46 AB (Rec: 10/13/22 17:33 AB [id number]) OP-PT Subjective Patient Comments Patient Comments See current condition. Patient Reported Progress Worse Patient Questionnaires Neck Disability Index NDI Score 15/50 Quick Dash- Upper Extremity Quick Dash UE Score 52% impairment Quick Dash UE Impairment 40 to 59% Impaired (Score 40- 59) PT-OP-H Neuro Start: 10/13/22 15:45 Freq: Status: Active Protocol: Document 10/13/22 15:46 AB (Rec: 10/13/22 17:33 AB [id number]) Sensation Evaluation Gross Sensation Gross Sensation Left UE Impaired,Right UE Impaired Sensation Description Numbness,Tingling Dermatome Impairments C2,C3,C4,C5,C6,C7,C8,T1 PT-OP-J Posture/Palpation/Skin Start: 10/13/22 15:45 Freq: Status: Active Protocol: Document 10/13/22 15:46 AB (Rec: 10/13/22 17:33 AB [id number]) Posture Evaluation Position Standing Evaluation View Lateral Head/C-Spine Posture Forward Head T-Spine Posture Increased Kyphosis Palpation Assessment Location Two Palpation Location Cervical spine Palpation Findings None/Normal Palpation Details Denies TTP or with lateral glides One Palpation Location bilateral shoulders Palpation Findings None/Normal PT-OP-K Range of Motion Start: 10/13/22 15:45 Freq: Status: Active Protocol: Document 10/13/22 15:46 AB (Rec: 10/13/22 17:33 AB [id number]) Cervical Spine Range of Motion Cervical Spine Active Degrees Testing Position Sitting Flexion 45 Extension 35 Rotation Left 60 Rotation Right 60 Lateral Flexion Left 40 Lateral Flexion Right 35 Comments Pain with all motions in posterior neck Shoulder Goniometric Range of Motion Shoulder Right Active Shoulder ROM WFL Yes Testing Position Sitting Flexion 160 Abduction 155 External Rotation at 0 degrees Abduction 60 Internal Rotation Behind Back (text) L1 Comments Functional ER: C7 Pain in all motions in lateral shoulder Left Active Shoulder ROM WFL Yes Testing Position Sitting Flexion 130 Abduction 160 External Rotation at 0 degrees Abduction 60 Internal Rotation Behind Back (text) L1 Comments Functional ER: C7 Pain in all motions in superior and lateral shoulder PT-OP-L Special Tests Start: 10/13/22 15:45 Freq: Status: Active Protocol: Document 10/13/22 15:46 AB (Rec: 10/13/22 17:33 AB [id number]) Special Tests Cervical Spine Special Tests Traction Test Results Positive Comments Relief with traction/ distraction, increased pain with compression PT-OP-M Strength Start: 10/13/22 15:45 Freq: Status: Active Protocol: Document 10/13/22 15:46 AB (Rec: 10/13/22 17:33 AB [id number]) Cervical Spine Strength Cervical Spine Manual Muscle Testing Testing Position Sitting Flexion (C1-2) 4 Good Extension 4 Good Rotation Left 4 Good Rotation Right 4 Good Lateral Flexion Left (C3) 4 Good Lateral Flexion Right (C3) 4 Good Comments Mild pain with all MMT Shoulder Strength Shoulder Manual Muscle Testing Right Flexion 4- Good- Extension 4+ Good+ Abduction (C5) 4- Good- External Rotation 3+ Fair+ Internal Rotation 4- Good- Comments Pain with ER, IR, ABD Left Flexion 4- Good- Extension 4+ Good+ Abduction (C5) 4- Good- External Rotation 3+ Fair+ Internal Rotation 4- Good- Comments Pain with ER, IR, ABD Elbow/Forearm Strength Elbow and Forearm Manual Muscle Testing Right Flexion (C6) 5 Normal Extension (C7) 5 Normal Comments Denies pain Left Flexion (C6) 5 Normal Extension (C7) 5 Normal Comments Denies pain Wrist Strength Wrist Manual Muscle Testing Right Flexion (C7) 5 Normal Extension (C6) 5 Normal Comments Denies pain Left Flexion (C7) 5 Normal Extension (C6) 5 Normal Comments Denies pain PT-OP-Q Treatments Start: 10/13/22 15:45 Freq: Status: Active Protocol: Document 10/13/22 15:46 AB (Rec: 10/13/22 17:33 AB [id number]) Therapeutic Exercises Supine Exercises 1 Supine Exercise Name Chin tucks Equipment Used Pillows due to kyphotic/ forward head posture Reps/Minutes 5x5 sec Sitting Exercises 1 Sitting Exercise Name Upper trap stretch Side bilateral Reps/Minutes 1x10 sec hold ea PT-OP-T Assessment and Plan Start: 10/13/22 15:45 Freq: Status: Active Protocol: Document 10/13/22 15:46 AB (Rec: 10/13/22 17:33 AB [id number]) Physical Therapy Assessment Rehab Potential Rehabilitation Potential Fair Evaluation Complexity Number of Personal Factors/Comorbidities 1-2 Number of Body Systems Impaired 3 Clinical Presentation at Evaluation Evolving Impairments Impairments Pain,ROM,Sensation,Strength Goals Seven Impairment Elevated QuickDASH and NDI scores Short Term Goal (STG) Pt's QuickDASH and NDI scores to improve by 10 points/ percent to show improving symptoms and QOL. STG Duration 4 weeks Group Home Goal (LTG) Pt's QuickDASH and NDI scores to improve by 20 points/ percent to show improving symptoms and QOL. LTG Duration 8 weeks Six Impairment CS strength deficits Short Term Goal (STG) Pt's cervical spine MMT scores to improve to 4+/5 or better to show improving strength strength to perform ADLs, IADLs, and work duties. STG Duration 4 weeks Group Home Goal (LTG) Pt's cervical spine MMT scores to improve to 5/5 to show improved strength strength to perform ADLs, IADLs, and work duties. LTG Duration 8 weeks Five Impairment Shoulder AROM and strength deficits Short Term Goal (STG) Pt's shoulder AROM to improve to WNL bilaterally to show improved ROM and strength in order to perform ADLs, IADLs and work duties. STG Duration 4 weeks Group Home Goal (LTG) Pt's shoulder MMT scores to improve to 4+/5 or better to show improved UE strength to perform ADLs, IADLs, and work duties. LTG Duration 8 weeks Four Impairment CS AROM deficits Short Term Goal (STG) Pt's cervical spine rotation AROM to improve to 65 degress or better bilaterally to show improving ROM to perform ADLs and IADLs with improved ease. STG Duration 4 weeks Group Home Goal (LTG) Pt's cervical spine rotation AROM to improve to 70 degress or better bilaterally to show improved ROM to perform ADLs and IADLs with improved ease. Three Impairment CS AROM deficits Short Term Goal (STG) Pt's cervical spine lateral flexion AROM to be 45 degrees bilaterally or better to show improving ROM to perform ADLs and IADLs with improved ease. STG Duration 4 weeks Group Home Goal (LTG) Pt's cervical spine lateral flexion AROM to improve to 45 degrees and to be symmetrical bilaterally to show improved ROM to perform ADLs and IADLs with improved ease. LTG Duration 8 weeks Two Impairment CS AROM deficits Short Term Goal (STG) Pt's cervical spine extension AROM to improve to 50 degress or better to show improving ROM to perform ADLs and IADLs with improved ease. STG Duration 4 weeks Group Home Goal (LTG) Pt's cervical spine extension AROM to improve to 60 degress or better to show improved ROM to perform ADLs and IADLs with improved ease. One Impairment Cervical spine AROM deficits Short Term Goal (STG) Pt's cervical spine flexion AROM to improve to 50 degrees or better to show improving ROM to perform ADLs and IADLs with improved ease STG Duration 4 weeks Heel Caser Goal (LTG) Pt's cervical spine flexion AROM to improve to full AROM without symptoms to show improved ROM to perform ADLs and IADLs with improved ease. LTG Duration 8 weeks Assessment Summary Assessment Francis Osborne is a 61 year old male patient presenting to outpatient PT with complaints of chronic neck pain and bilateral arm pain and weakness. Today's PT examination revealed cervical spine and shoulder AROM deficits, cervical spine and UE muscular weakness, gross decreased sensation in bilateral UEs, and pain that was reproduced with cervical compression and relieved with traction. These deficits are consistent with his medical diagnosis, however, there may be underlying shoulder pathology contributing to his symptoms. The pt would benefit from a trial of skilled PT based on these findings in order to improve these deficits and his symptoms. The pt's rehab potential is guarded due to his symptom presentation, however, he is highly motivated to participate in PT. Continue to assess as indicated. Physical Therapy Plan Frequency and Duration Frequency of Treatment 2x/Week Duration of treatment (weeks) 8 Plan of Care Start Date 10/13/22 Plan of Care End Date 12/08/22 Therapeutic Interventions Therapeutic Interventions Manual Therapy,Neuromuscular Re-education,Self-Care/Home Management,Soft Tissue Mobilization,Taping, Therapeutic Activities, Therapeutic Exercises Modalities Cold Pack/Ice Massage,Electric Stimulation Next Visit Focus/Plan Next Note Type Treatment Note Next Visit Plan Review HEP, add cervical spine and periscapular musculature strengthening exercises as tolerated. Perform manual therapy as indicated.
--- NOTE | 2022-10-18 17:20 | PT.OTN ---
Current Diagnoses Other chronic pain (10/18/22) Pain in right shoulder (10/18/22) Pain in left shoulder (10/18/22) Radiculopathy, cervical region (10/18/22) Physical Therapy Treatment Note PT-OP-A Visit Information Start: 10/13/22 15:45 Freq: Status: Active Protocol: Document 10/18/22 16:04 AB (Rec: 10/18/22 17:20 AB [id number]) Out-Patient Physical Therapy Visit Information Visit Information Visit Type Treatment Note Visit Start Time 16:00 Visit Stop Time 16:45 Total Visit Minutes 45 Visit Number 2 Number of NAPRAPATH Visits 0 PT-OP-B Current Condition Start: 10/13/22 15:45 Freq: Status: Active Protocol: Document 10/13/22 15:46 AB (Rec: 10/13/22 17:33 AB [id number]) Current Condition History of Current Condition Onset Date Chronic Current Complaints Weakness and N/T down bilateral UEs. History of Current Condition Pt reports his symptoms have been occurring on and off since before the start of the COVID pandemic. He states a couple of months ago while he was at work, he began experiencing LUE weakness and loss of control/coordination, and went to the ER. Work up and imaging done at ER revealed no significant findings such as stroke. Yard work, standing for prolonged periods, heavy lifting, moving his head. Prescribed pain medication helped his symptoms tremendously. Heat and ice help to relieve his symptoms. Prior Treatments and Tests MRI, EMG Future Testing and Treatments Planned Follow up with Dr. Jasso on . Treatment Goals Patient/Caregiver Goals To improve his symptoms and regain strength. Prior Functional Status Baseline Function- ADL's Independent Baseline Function- Mobility Independent Current Functional Impairments (Reported) Functional Limitations- ADL's Pt has symptoms with ADLs that involve a lot of UE use. Functional Limitations- Work/School Pt has symptoms at time while at work but is able to work through them. PT-OP-C Subjective Start: 10/13/22 15:45 Freq: Status: Active Protocol: Document 10/18/22 16:04 AB (Rec: 10/18/22 17:20 AB [id number]) OP-PT Subjective Patient Comments Patient Comments Pt reports 3-4/10 pain in his LUE currently. He also states he drove to [place] this weekend and noticed his LUE went numb. Patient Reported Progress Same PT-OP-H Neuro Start: 10/13/22 15:45 Freq: Status: Active Protocol: Document 10/13/22 15:46 AB (Rec: 10/13/22 17:33 AB [id number]) Sensation Evaluation Gross Sensation Gross Sensation Left UE Impaired,Right UE Impaired Sensation Description Numbness,Tingling Dermatome Impairments C2,C3,C4,C5,C6,C7,C8,T1 PT-OP-J Posture/Palpation/Skin Start: 10/13/22 15:45 Freq: Status: Active Protocol: Document 10/13/22 15:46 AB (Rec: 10/13/22 17:33 AB [id number]) Posture Evaluation Position Standing Evaluation View Lateral Head/C-Spine Posture Forward Head T-Spine Posture Increased Kyphosis Palpation Assessment Location Two Palpation Location Cervical spine Palpation Findings None/Normal Palpation Details Denies TTP or with lateral glides One Palpation Location bilateral shoulders Palpation Findings None/Normal PT-OP-K Range of Motion Start: 10/13/22 15:45 Freq: Status: Active Protocol: Document 10/13/22 15:46 AB (Rec: 10/13/22 17:33 AB [id number]) Cervical Spine Range of Motion Cervical Spine Active Degrees Testing Position Sitting Flexion 45 Extension 35 Rotation Left 60 Rotation Right 60 Lateral Flexion Left 40 Lateral Flexion Right 35 Comments Pain with all motions in posterior neck Shoulder Goniometric Range of Motion Shoulder Right Active Shoulder ROM WFL Yes Testing Position Sitting Flexion 160 Abduction 155 External Rotation at 0 degrees Abduction 60 Internal Rotation Behind Back (text) L1 Comments Functional ER: C7 Pain in all motions in lateral shoulder Left Active Shoulder ROM WFL Yes Testing Position Sitting Flexion 130 Abduction 160 External Rotation at 0 degrees Abduction 60 Internal Rotation Behind Back (text) L1 Comments Functional ER: C7 Pain in all motions in superior and lateral shoulder PT-OP-L Special Tests Start: 10/13/22 15:45 Freq: Status: Active Protocol: Document 10/13/22 15:46 AB (Rec: 10/13/22 17:33 AB [id number]) Special Tests Cervical Spine Special Tests Traction Test Results Positive Comments Relief with traction/ distraction, increased pain with compression PT-OP-M Strength Start: 10/13/22 15:45 Freq: Status: Active Protocol: Document 10/13/22 15:46 AB (Rec: 08/10/23 17:33 AB [id number]) Cervical Spine Strength Cervical Spine Manual Muscle Testing Testing Position Sitting Flexion (C1-2) 4 Good Extension 4 Good Rotation Left 4 Good Rotation Right 4 Good Lateral Flexion Left (C3) 4 Good Lateral Flexion Right (C3) 4 Good Comments Mild pain with all MMT Shoulder Strength Shoulder Manual Muscle Testing Right Flexion 4- Good- Extension 4+ Good+ Abduction (C5) 4- Good- External Rotation 3+ Fair+ Internal Rotation 4- Good- Comments Pain with ER, IR, ABD Left Flexion 4- Good- Extension 4+ Good+ Abduction (C5) 4- Good- External Rotation 3+ Fair+ Internal Rotation 4- Good- Comments Pain with ER, IR, ABD Elbow/Forearm Strength Elbow and Forearm Manual Muscle Testing Right Flexion (C6) 5 Normal Extension (C7) 5 Normal Comments Denies pain Left Flexion (C6) 5 Normal Extension (C7) 5 Normal Comments Denies pain Wrist Strength Wrist Manual Muscle Testing Right Flexion (C7) 5 Normal Extension (C6) 5 Normal Comments Denies pain Left Flexion (C7) 5 Normal Extension (C6) 5 Normal Comments Denies pain PT-OP-Q Treatments Start: 10/13/22 15:45 Freq: Status: Active Protocol: Document 10/18/22 16:04 AB (Rec: 10/18/22 17:20 AB [id number]) Cardio Equipment Upper Body Ergometer (UBE) Duration (Minutes) 4 RPM 0 Seat Position 17 Other 2 min fwd, 2 min bwd Therapeutic Exercises Supine Exercises 2 Supine Exercise Name cervical rotation Side bilateral Reps/Minutes x10 1 Supine Exercise Name Chin tucks Reps/Minutes 2x10 Sidelying Exercises 1 Sidelying Exercise Name Open books Side bilateral Reps/Minutes x10 Sitting Exercises 2 Sitting Exercise Name Thoracic spine extension over chair Reps/Minutes 5x5sec holds 1 Sitting Exercise Name UT stretch Side bilateral Reps/Minutes [id number] Standing Exercises 3 Standing Exercise Name Front raises Side bilateral Resistance DBs Equipment Used 1#, 2# Reps/Minutes 2x10 Comments Mild pain/discomfort in right biceps with second set using 2 # DBs 2 Standing Exercise Name Bicep curls Side bilateral Resistance 5# Equipment Used DBs Reps/Minutes 2x15 1 Standing Exercise Name Theraband rows Side bilateral Resistance [place] green band, blueberry band Reps/Minutes 1x15, 1x15 PT-OP-T Assessment and Plan Start: 10/13/22 15:45 Freq: Status: Active Protocol: Document 10/18/22 16:04 AB (Rec: 10/18/22 17:20 AB [id number]) Physical Therapy Assessment Assessment Summary Assessment The pt was progressed today by adding additional cervical and thoracic spine mobility exercises, and RTC and periscapular strengthening exercises. The pt reported good tolerance overall, reporting only mild pain and discomfort during certain exercises. Specifically, he had mild pain in biceps with open books therefore this was modified to bend elbow when closing book. The pt requires verbal cues throughout session to ensure good posture when performing therex. HEP was updated with addition of open book and theraband rows. Physical Therapy Plan Next Visit Focus/Plan Next Note Type Treatment Note Next Visit Plan Assess tolerance to today's visit. Continue progressing as tolerated as per POC.
--- NOTE | 2022-10-24 17:21 | PT.OTN ---
Current Diagnoses Other chronic pain (10/24/22) Pain in right shoulder (10/24/22) Pain in left shoulder (10/24/22) Radiculopathy, cervical region (10/24/22) Physical Therapy Treatment Note PT-OP-A Visit Information Start: 10/13/22 15:45 Freq: Status: Active Protocol: Document 10/24/22 16:24 AB (Rec: 10/24/22 17:21 AB [id number]) Out-Patient Physical Therapy Visit Information Visit Information Visit Type Treatment Note Visit Start Time 16:15 Visit Stop Time 17:00 Total Visit Minutes 45 Visit Number 3 Number of PHYSICIAN GENERAL PRACTICE Visits 0 PT-OP-B Current Condition Start: 10/13/22 15:45 Freq: Status: Active Protocol: Document 10/13/22 15:46 AB (Rec: 10/13/22 17:33 AB [id number]) Current Condition History of Current Condition Onset Date Chronic Current Complaints Weakness and N/T down bilateral UEs. History of Current Condition Pt reports his symptoms have been occurring on and off since before the start of the COVID pandemic. He states a couple of months ago while he was at work, he began experiencing LUE weakness and loss of control/coordination, and went to the ER. Work up and imaging done at ER revealed no significant findings such as stroke. Yard work, standing for prolonged periods, heavy lifting, moving his head. Prescribed pain medication helped his symptoms tremendously. Heat and ice help to relieve his symptoms. Prior Treatments and Tests MRI, EMG Future Testing and Treatments Planned Follow up with Dr. Jasso on . Treatment Goals Patient/Caregiver Goals To improve his symptoms and regain strength. Prior Functional Status Baseline Function- ADL's Independent Baseline Function- Mobility Independent Current Functional Impairments (Reported) Functional Limitations- ADL's Pt has symptoms with ADLs that involve a lot of UE use. Functional Limitations- Work/School Pt has symptoms at time while at work but is able to work through them. PT-OP-C Subjective Start: 10/13/22 15:45 Freq: Status: Active Protocol: Document 10/24/22 16:24 AB (Rec: 10/24/22 17:21 AB [id number]) OP-PT Subjective Patient Comments Patient Comments Pt reports he was doing yard work this weekend and when he came in he did his exercises and had significant relief in his symptoms. He feels like he is improving. Patient Reported Progress Same PT-OP-H Neuro Start: 10/13/22 15:45 Freq: Status: Active Protocol: Document 10/13/22 15:46 AB (Rec: 10/13/22 17:33 AB [id number]) Sensation Evaluation Gross Sensation Gross Sensation Left UE Impaired,Right UE Impaired Sensation Description Numbness,Tingling Dermatome Impairments C2,C3,C4,C5,C6,C7,C8,T1 PT-OP-J Posture/Palpation/Skin Start: 10/13/22 15:45 Freq: Status: Active Protocol: Document 10/13/22 15:46 AB (Rec: 10/13/22 17:33 AB [id number]) Posture Evaluation Position Standing Evaluation View Lateral Head/C-Spine Posture Forward Head T-Spine Posture Increased Kyphosis Palpation Assessment Location Two Palpation Location Cervical spine Palpation Findings None/Normal Palpation Details Denies TTP or with lateral glides One Palpation Location bilateral shoulders Palpation Findings None/Normal PT-OP-K Range of Motion Start: 10/13/22 15:45 Freq: Status: Active Protocol: Document 10/13/22 15:46 AB (Rec: 10/13/22 17:33 AB [id number]) Cervical Spine Range of Motion Cervical Spine Active Degrees Testing Position Sitting Flexion 45 Extension 35 Rotation Left 60 Rotation Right 60 Lateral Flexion Left 40 Lateral Flexion Right 35 Comments Pain with all motions in posterior neck Shoulder Goniometric Range of Motion Shoulder Right Active Shoulder ROM WFL Yes Testing Position Sitting Flexion 160 Abduction 155 External Rotation at 0 degrees Abduction 60 Internal Rotation Behind Back (text) L1 Comments Functional ER: C7 Pain in all motions in lateral shoulder Left Active Shoulder ROM WFL Yes Testing Position Sitting Flexion 130 Abduction 160 External Rotation at 0 degrees Abduction 60 Internal Rotation Behind Back (text) L1 Comments Functional ER: C7 Pain in all motions in superior and lateral shoulder PT-OP-L Special Tests Start: 10/13/22 15:45 Freq: Status: Active Protocol: Document 10/13/22 15:46 AB (Rec: 10/13/22 17:33 AB [id number]) Special Tests Cervical Spine Special Tests Traction Test Results Positive Comments Relief with traction/ distraction, increased pain with compression PT-OP-M Strength Start: 10/13/22 15:45 Freq: Status: Active Protocol: Document 10/13/22 15:46 AB (Rec: 10/13/22 17:33 AB [id number]) Cervical Spine Strength Cervical Spine Manual Muscle Testing Testing Position Sitting Flexion (C1-2) 4 Good Extension 4 Good Rotation Left 4 Good Rotation Right 4 Good Lateral Flexion Left (C3) 4 Good Lateral Flexion Right (C3) 4 Good Comments Mild pain with all MMT Shoulder Strength Shoulder Manual Muscle Testing Right Flexion 4- Good- Extension 4+ Good+ Abduction (C5) 4- Good- External Rotation 3+ Fair+ Internal Rotation 4- Good- Comments Pain with ER, IR, ABD Left Flexion 4- Good- Extension 4+ Good+ Abduction (C5) 4- Good- External Rotation 3+ Fair+ Internal Rotation 4- Good- Comments Pain with ER, IR, ABD Elbow/Forearm Strength Elbow and Forearm Manual Muscle Testing Right Flexion (C6) 5 Normal Extension (C7) 5 Normal Comments Denies pain Left Flexion (C6) 5 Normal Extension (C7) 5 Normal Comments Denies pain Wrist Strength Wrist Manual Muscle Testing Right Flexion (C7) 5 Normal Extension (C6) 5 Normal Comments Denies pain Left Flexion (C7) 5 Normal Extension (C6) 5 Normal Comments Denies pain PT-OP-Q Treatments Start: 10/13/22 15:45 Freq: Status: Active Protocol: Document 10/24/22 16:24 AB (Rec: 10/24/22 17:21 AB [id number]) Cardio Equipment Upper Body Ergometer (UBE) Duration (Minutes) 5 Other 2.5 fwd, 2.5 bwd Gym Equipment Cable Column (Body Solid) Rows Resistance 3 Reps/Time 2x15 Therapeutic Exercises Supine Exercises 2 Supine Exercise Name cervical spine rotation Side bilateral Equipment Used 1 pillow Reps/Minutes x10 1 Supine Exercise Name Chin tucks Equipment Used 1 pillow Reps/Minutes 2x10 Comments 1x10 normal chin tucks, 1x10 chin tuck + cervical spine flexion Sidelying Exercises 1 Sidelying Exercise Name Open books Side bilateral Reps/Minutes x10 Sitting Exercises 1 Sitting Exercise Name Cervical isometric holds Reps/Minutes 5x5sec holds Comments flexion, extension, side bending Standing Exercises 4 Standing Exercise Name Radial nerve glide Side bilateral Reps/Minutes 1x10, 3 sec holds Comments tip position: UE extended, wrist flexed, IR shldr to turn hand out & back 3 Standing Exercise Name Front raises Side bilateral Resistance DBs Equipment Used 3# Reps/Minutes 2x10 2 Standing Exercise Name Bicep curls Side bilateral Resistance 10# Equipment Used DBs Reps/Minutes 2x10 1 Standing Exercise Name No Moneys Side bilateral Reps/Minutes 2x15 Comments Bilateral shoulder ER and with scap retraction PT-OP-T Assessment and Plan Start: 10/13/22 15:45 Freq: Status: Active Protocol: Document 10/24/22 16:24 AB (Rec: 10/24/22 17:21 AB [id number]) Physical Therapy Assessment Assessment Summary Assessment The pt was progressed today by adding resistance to exercises as indicated above, with good tolerance reported by the pt. Additonal cervical musculature strengthening exercisesand a radial nerve glide were added to improve the pt's symptoms. The pt would benefit from continued skilled PT to improve his symptoms and increase his level of function. Physical Therapy Plan Next Visit Focus/Plan Next Note Type Treatment Note Next Visit Plan Assess tolerance to today's visit and progress as indicated.
--- NOTE | 2022-10-27 17:10 | PT.OTN ---
Current Diagnoses Other chronic pain (10/27/22) Pain in right shoulder (10/27/22) Pain in left shoulder (10/27/22) Radiculopathy, cervical region (10/27/22) Physical Therapy Treatment Note PT-OP-A Visit Information Start: 10/13/22 15:45 Freq: Status: Active Protocol: Document 10/27/22 16:15 AB (Rec: 10/27/22 17:09 AB [id number]) Out-Patient Physical Therapy Visit Information Visit Information Visit Type Treatment Note Visit Start Time 16:10 Visit Stop Time 16:55 Total Visit Minutes 45 Visit Number 4 Number of EXPORT PACKER Visits 0 PT-OP-B Current Condition Start: 10/13/22 15:45 Freq: Status: Active Protocol: Document 10/13/22 15:46 AB (Rec: 10/13/22 17:33 AB [id number]) Current Condition History of Current Condition Onset Date Chronic Current Complaints Weakness and N/T down bilateral UEs. History of Current Condition Pt reports his symptoms have been occurring on and off since before the start of the COVID pandemic. He states a couple of months ago while he was at work, he began experiencing LUE weakness and loss of control/coordination, and went to the ER. Work up and imaging done at ER revealed no significant findings such as stroke. Yard work, standing for prolonged periods, heavy lifting, moving his head. Prescribed pain medication helped his symptoms tremendously. Heat and ice help to relieve his symptoms. Prior Treatments and Tests MRI, EMG Future Testing and Treatments Planned Follow up with Dr. Jasso on . Treatment Goals Patient/Caregiver Goals To improve his symptoms and regain strength. Prior Functional Status Baseline Function- ADL's Independent Baseline Function- Mobility Independent Current Functional Impairments (Reported) Functional Limitations- ADL's Pt has symptoms with ADLs that involve a lot of UE use. Functional Limitations- Work/School Pt has symptoms at time while at work but is able to work through them. PT-OP-C Subjective Start: 10/13/22 15:45 Freq: Status: Active Protocol: Document 10/27/22 16:15 AB (Rec: 10/27/22 17:09 AB [id number]) OP-PT Subjective Patient Comments Patient Comments The pt reports he had an instance where his LUE went numb/heavy today. He noticed it happened when he had his arm resting up at shoulder height. Patient Reported Progress Same PT-OP-H Neuro Start: 10/13/22 15:45 Freq: Status: Active Protocol: Document 10/13/22 15:46 AB (Rec: 10/13/22 17:33 AB [id number]) Sensation Evaluation Gross Sensation Gross Sensation Left UE Impaired,Right UE Impaired Sensation Description Numbness,Tingling Dermatome Impairments C2,C3,C4,C5,C6,C7,C8,T1 PT-OP-J Posture/Palpation/Skin Start: 10/13/22 15:45 Freq: Status: Active Protocol: Document 10/13/22 15:46 AB (Rec: 10/13/22 17:33 AB [id number]) Posture Evaluation Position Standing Evaluation View Lateral Head/C-Spine Posture Forward Head T-Spine Posture Increased Kyphosis Palpation Assessment Location Two Palpation Location Cervical spine Palpation Findings None/Normal Palpation Details Denies TTP or with lateral glides One Palpation Location bilateral shoulders Palpation Findings None/Normal PT-OP-K Range of Motion Start: 10/13/22 15:45 Freq: Status: Active Protocol: Document 10/13/22 15:46 AB (Rec: 10/13/22 17:33 AB [id number]) Cervical Spine Range of Motion Cervical Spine Active Degrees Testing Position Sitting Flexion 45 Extension 35 Rotation Left 60 Rotation Right 60 Lateral Flexion Left 40 Lateral Flexion Right 35 Comments Pain with all motions in posterior neck Shoulder Goniometric Range of Motion Shoulder Right Active Shoulder ROM WFL Yes Testing Position Sitting Flexion 160 Abduction 155 External Rotation at 0 degrees Abduction 60 Internal Rotation Behind Back (text) L1 Comments Functional ER: C7 Pain in all motions in lateral shoulder Left Active Shoulder ROM WFL Yes Testing Position Sitting Flexion 130 Abduction 160 External Rotation at 0 degrees Abduction 60 Internal Rotation Behind Back (text) L1 Comments Functional ER: C7 Pain in all motions in superior and lateral shoulder PT-OP-L Special Tests Start: 10/13/22 15:45 Freq: Status: Active Protocol: Document 10/13/22 15:46 AB (Rec: 10/13/22 17:33 AB [id number]) Special Tests Cervical Spine Special Tests Traction Test Results Positive Comments Relief with traction/ distraction, increased pain with compression PT-OP-M Strength Start: 10/13/22 15:45 Freq: Status: Active Protocol: Document 10/13/22 15:46 AB (Rec: 08/10/23 17:33 AB [id number]) Cervical Spine Strength Cervical Spine Manual Muscle Testing Testing Position Sitting Flexion (C1-2) 4 Good Extension 4 Good Rotation Left 4 Good Rotation Right 4 Good Lateral Flexion Left (C3) 4 Good Lateral Flexion Right (C3) 4 Good Comments Mild pain with all MMT Shoulder Strength Shoulder Manual Muscle Testing Right Flexion 4- Good- Extension 4+ Good+ Abduction (C5) 4- Good- External Rotation 3+ Fair+ Internal Rotation 4- Good- Comments Pain with ER, IR, ABD Left Flexion 4- Good- Extension 4+ Good+ Abduction (C5) 4- Good- External Rotation 3+ Fair+ Internal Rotation 4- Good- Comments Pain with ER, IR, ABD Elbow/Forearm Strength Elbow and Forearm Manual Muscle Testing Right Flexion (C6) 5 Normal Extension (C7) 5 Normal Comments Denies pain Left Flexion (C6) 5 Normal Extension (C7) 5 Normal Comments Denies pain Wrist Strength Wrist Manual Muscle Testing Right Flexion (C7) 5 Normal Extension (C6) 5 Normal Comments Denies pain Left Flexion (C7) 5 Normal Extension (C6) 5 Normal Comments Denies pain PT-OP-Q Treatments Start: 10/13/22 15:45 Freq: Status: Active Protocol: Document 10/27/22 16:15 AB (Rec: 10/27/22 17:09 AB [id number]) Cardio Equipment Upper Body Ergometer (UBE) Duration (Minutes) 5 Other 2.5 fwd, 2.5 bwd Gym Equipment Cable Column (Body Solid) Rows Resistance 3 Reps/Time 2x15 Therapeutic Exercises Supine Exercises 2 Supine Exercise Name cervical spine rotation Side bilateral Equipment Used 1 pillow Reps/Minutes x10 1 Supine Exercise Name Chin tucks Equipment Used 1 pillow Reps/Minutes 2x10 Comments 1x10 normal chin tucks, 1x10 chin tuck + cervical spine flexion Sidelying Exercises 1 Sidelying Exercise Name Open books Side bilateral Reps/Minutes x10 Sitting Exercises 3 Sitting Exercise Name Lat dorsi/T spine stretch Side bilateral Reps/Minutes 5x5 sec hold Comments Arms straight on table, trunk flexion 2 Sitting Exercise Name Thoracic spine extension over chair Reps/Minutes 5x5sec holds 1 Sitting Exercise Name Cervical isometric holds Reps/Minutes 5x5sec holds Comments flexion, extension, side bending Standing Exercises 5 Standing Exercise Name Ts Side bilateral Resistance peach TB 2x10 4 Standing Exercise Name Radial nerve glide Side bilateral Reps/Minutes 1x10, 3 sec holds Comments tip position: UE extended, wrist flexed, IR shldr to turn hand out & back 3 Standing Exercise Name Front raises Side bilateral Resistance DBs Equipment Used 3# Reps/Minutes 2x10 2 Standing Exercise Name Bicep curls Side bilateral Resistance 10# Equipment Used DBs Reps/Minutes 2x10 1 Standing Exercise Name No Moneys Side bilateral Reps/Minutes 2x15 Comments Bilateral shoulder ER and with scap retraction Manual Therapy Treatment Soft Tissue Mobilization 1 Body Location Bilateral upper traps Mobilization Type Other Body Position Supine Comments STM Manual Traction Cervical Details With towel Body Position Supine Reps/Duration x5 min PT-OP-T Assessment and Plan Start: 10/13/22 15:45 Freq: Status: Active Protocol: Document 10/27/22 16:15 AB (Rec: 10/27/22 17:09 AB [id number]) Physical Therapy Assessment Goals Seven Impairment Elevated QuickDASH and NDI scores Short Term Goal (STG) Pt's QuickDASH and NDI scores to improve by 10 points/ percent to show improving symptoms and QOL. STG Duration 4 weeks Hole Digger Goal (LTG) Pt's QuickDASH and NDI scores to improve by 20 points/ percent to show improving symptoms and QOL. LTG Duration 8 weeks Six Impairment CS strength deficits Short Term Goal (STG) Pt's cervical spine MMT scores to improve to 4+/5 or better to show improving strength strength to perform ADLs, IADLs, and work duties. STG Duration 4 weeks Hole Digger Goal (LTG) Pt's cervical spine MMT scores to improve to 5/5 to show improved strength strength to perform ADLs, IADLs, and work duties. LTG Duration 8 weeks Five Impairment Shoulder AROM and strength deficits Short Term Goal (STG) Pt's shoulder AROM to improve to WNL bilaterally to show improved ROM and strength in order to perform ADLs, IADLs and work duties. STG Duration 4 weeks Hole Digger Goal (LTG) Pt's shoulder MMT scores to improve to 4+/5 or better to show improved UE strength to perform ADLs, IADLs, and work duties. LTG Duration 8 weeks Four Impairment CS AROM deficits Short Term Goal (STG) Pt's cervical spine rotation AROM to improve to 65 degress or better bilaterally to show improving ROM to perform ADLs and IADLs with improved ease. STG Duration 4 weeks Hole Digger Goal (LTG) Pt's cervical spine rotation AROM to improve to 70 degress or better bilaterally to show improved ROM to perform ADLs and IADLs with improved ease. Three Impairment CS AROM deficits Short Term Goal (STG) Pt's cervical spine lateral flexion AROM to be 45 degrees bilaterally or better to show improving ROM to perform ADLs and IADLs with improved ease. STG Duration 4 weeks Hole Digger Goal (LTG) Pt's cervical spine lateral flexion AROM to improve to 45 degrees and to be symmetrical bilaterally to show improved ROM to perform ADLs and IADLs with improved ease. LTG Duration 8 weeks Two Impairment CS AROM deficits Short Term Goal (STG) Pt's cervical spine extension AROM to improve to 50 degress or better to show improving ROM to perform ADLs and IADLs with improved ease. STG Duration 4 weeks Hole Digger Goal (LTG) Pt's cervical spine extension AROM to improve to 60 degress or better to show improved ROM to perform ADLs and IADLs with improved ease. One Impairment Cervical spine AROM deficits Short Term Goal (STG) Pt's cervical spine flexion AROM to improve to 50 degrees or better to show improving ROM to perform ADLs and IADLs with improved ease STG Duration 4 weeks Mcfp Goal (LTG) Pt's cervical spine flexion AROM to improve to full AROM without symptoms to show improved ROM to perform ADLs and IADLs with improved ease. LTG Duration 8 weeks Assessment Summary Assessment Based on the report of his symptoms, specifically that numbness and heaviness comes on when his arm is elevated, TOS may be causing some of the pt's symptoms. The pt was educated on ensuring he is not staying in one position for prolonged periods, as well as work ergonomics to avoid exacerbating his symptoms. Manual therapy was added to decrease his symptoms and to improve joint and soft tissue mobility. The pt continues to benefit from skilled PT at this time continue progressing towards his goals. Physical Therapy Plan Next Visit Focus/Plan Next Note Type Treatment Note Next Visit Plan Assess tolerance to today's visit. Progress cervical spine and UE mobility and strength exercises.
--- NOTE | 2022-11-09 17:13 | PT.OTN ---
Current Diagnoses Other chronic pain (11/09/22) Pain in right shoulder (11/09/22) Pain in left shoulder (11/09/22) Radiculopathy, cervical region (11/09/22) Physical Therapy Treatment Note PT-OP-A Visit Information Start: 10/13/22 15:45 Freq: Status: Active Protocol: Document 11/09/22 15:30 AB (Rec: 11/09/22 17:13 AB [id number]) Out-Patient Physical Therapy Visit Information Visit Information Visit Type Treatment Note Visit Start Time 15:30 Visit Stop Time 14:15 Total Visit Minutes 45 Visit Number 5 Number of HIDE CURER Visits 0 Evaluation Information Evaluation Date 10/13/22 PT-OP-B Current Condition Start: 10/13/22 15:45 Freq: Status: Active Protocol: Document 10/13/22 15:46 AB (Rec: 10/13/22 17:33 AB [id number]) Current Condition History of Current Condition Onset Date Chronic Current Complaints Weakness and N/T down bilateral UEs. History of Current Condition Pt reports his symptoms have been occurring on and off since before the start of the COVID pandemic. He states a couple of months ago while he was at work, he began experiencing LUE weakness and loss of control/coordination, and went to the ER. Work up and imaging done at ER revealed no significant findings such as stroke. Yard work, standing for prolonged periods, heavy lifting, moving his head. Prescribed pain medication helped his symptoms tremendously. Heat and ice help to relieve his symptoms. Prior Treatments and Tests MRI, EMG Future Testing and Treatments Planned Follow up with Dr. Jasso on . Treatment Goals Patient/Caregiver Goals To improve his symptoms and regain strength. Prior Functional Status Baseline Function- ADL's Independent Baseline Function- Mobility Independent Current Functional Impairments (Reported) Functional Limitations- ADL's Pt has symptoms with ADLs that involve a lot of UE use. Functional Limitations- Work/School Pt has symptoms at time while at work but is able to work through them. PT-OP-C Subjective Start: 10/13/22 15:45 Freq: Status: Active Protocol: Document 11/09/22 15:30 AB (Rec: 11/09/22 17:13 AB [id number]) OP-PT Subjective Patient Comments Patient Comments The pt reports he continues with nerve related pain, though he has not found anything specific that provokes it, nor any particular patterns. Patient Reported Progress Same PT-OP-H Neuro Start: 10/13/22 15:45 Freq: Status: Active Protocol: Document 10/13/22 15:46 AB (Rec: 10/13/22 17:33 AB [id number]) Sensation Evaluation Gross Sensation Gross Sensation Left UE Impaired,Right UE Impaired Sensation Description Numbness,Tingling Dermatome Impairments C2,C3,C4,C5,C6,C7,C8,T1 PT-OP-J Posture/Palpation/Skin Start: 10/13/22 15:45 Freq: Status: Active Protocol: Document 10/13/22 15:46 AB (Rec: 10/13/22 17:33 AB [id number]) Posture Evaluation Position Standing Evaluation View Lateral Head/C-Spine Posture Forward Head T-Spine Posture Increased Kyphosis Palpation Assessment Location Two Palpation Location Cervical spine Palpation Findings None/Normal Palpation Details Denies TTP or with lateral glides One Palpation Location bilateral shoulders Palpation Findings None/Normal PT-OP-K Range of Motion Start: 10/13/22 15:45 Freq: Status: Active Protocol: Document 10/13/22 15:46 AB (Rec: 10/13/22 17:33 AB [id number]) Cervical Spine Range of Motion Cervical Spine Active Degrees Testing Position Sitting Flexion 45 Extension 35 Rotation Left 60 Rotation Right 60 Lateral Flexion Left 40 Lateral Flexion Right 35 Comments Pain with all motions in posterior neck Shoulder Goniometric Range of Motion Shoulder Right Active Shoulder ROM WFL Yes Testing Position Sitting Flexion 160 Abduction 155 External Rotation at 0 degrees Abduction 60 Internal Rotation Behind Back (text) L1 Comments Functional ER: C7 Pain in all motions in lateral shoulder Left Active Shoulder ROM WFL Yes Testing Position Sitting Flexion 130 Abduction 160 External Rotation at 0 degrees Abduction 60 Internal Rotation Behind Back (text) L1 Comments Functional ER: C7 Pain in all motions in superior and lateral shoulder PT-OP-L Special Tests Start: 10/13/22 15:45 Freq: Status: Active Protocol: Document 10/13/22 15:46 AB (Rec: 10/13/22 17:33 AB [id number]) Special Tests Cervical Spine Special Tests Traction Test Results Positive Comments Relief with traction/ distraction, increased pain with compression PT-OP-M Strength Start: 10/13/22 15:45 Freq: Status: Active Protocol: Document 10/13/22 15:46 AB (Rec: 10/13/22 17:33 AB [id number]) Cervical Spine Strength Cervical Spine Manual Muscle Testing Testing Position Sitting Flexion (C1-2) 4 Good Extension 4 Good Rotation Left 4 Good Rotation Right 4 Good Lateral Flexion Left (C3) 4 Good Lateral Flexion Right (C3) 4 Good Comments Mild pain with all MMT Shoulder Strength Shoulder Manual Muscle Testing Right Flexion 4- Good- Extension 4+ Good+ Abduction (C5) 4- Good- External Rotation 3+ Fair+ Internal Rotation 4- Good- Comments Pain with ER, IR, ABD Left Flexion 4- Good- Extension 4+ Good+ Abduction (C5) 4- Good- External Rotation 3+ Fair+ Internal Rotation 4- Good- Comments Pain with ER, IR, ABD Elbow/Forearm Strength Elbow and Forearm Manual Muscle Testing Right Flexion (C6) 5 Normal Extension (C7) 5 Normal Comments Denies pain Left Flexion (C6) 5 Normal Extension (C7) 5 Normal Comments Denies pain Wrist Strength Wrist Manual Muscle Testing Right Flexion (C7) 5 Normal Extension (C6) 5 Normal Comments Denies pain Left Flexion (C7) 5 Normal Extension (C6) 5 Normal Comments Denies pain PT-OP-Q Treatments Start: 10/13/22 15:45 Freq: Status: Active Protocol: Document 11/09/22 15:30 AB (Rec: 11/09/22 17:13 AB [id number]) Therapeutic Exercises Supine Exercises Pec stretch Supine Exercise Name foam roller pec stretch Reps/Minutes 2x30 sec 1 Supine Exercise Name Chin tucks + cervical flexion Equipment Used 1 pillow Reps/Minutes 2x10 Sidelying Exercises 1 Sidelying Exercise Name Open books Side bilateral Reps/Minutes x10 Standing Exercises 5 Standing Exercise Name Ts Side bilateral Resistance peach TB 2x10 4 Standing Exercise Name Radial nerve glide Side bilateral Reps/Minutes 1x10, 3 sec holds Comments tip position: UE extended, wrist flexed, IR shldr to turn hand out & back Manual Therapy Treatment Manual Traction Cervical Details With towel Body Position Supine Reps/Duration x12 min PT-OP-T Assessment and Plan Start: 10/13/22 15:45 Freq: Status: Active Protocol: Document 11/09/22 15:30 AB (Rec: 11/09/22 17:13 AB [id number]) Physical Therapy Assessment Goals Seven Impairment Elevated QuickDASH and NDI scores Short Term Goal (STG) Pt's QuickDASH and NDI scores to improve by 10 points/ percent to show improving symptoms and QOL. STG Duration 4 weeks [facility]ci Goal (LTG) Pt's QuickDASH and NDI scores to improve by 20 points/ percent to show improving symptoms and QOL. LTG Duration 8 weeks Six Impairment CS strength deficits Short Term Goal (STG) Pt's cervical spine MMT scores to improve to 4+/5 or better to show improving strength strength to perform ADLs, IADLs, and work duties. STG Duration 4 weeks [employer] Sales [employer] Goal (LTG) Pt's cervical spine MMT scores to improve to 5/5 to show improved strength strength to perform ADLs, IADLs, and work duties. LTG Duration 8 weeks Five Impairment Shoulder AROM and strength deficits Short Term Goal (STG) Pt's shoulder AROM to improve to WNL bilaterally to show improved ROM and strength in order to perform ADLs, IADLs and work duties. STG Duration 4 weeks [facility]ci Goal (LTG) Pt's shoulder MMT scores to improve to 4+/5 or better to show improved UE strength to perform ADLs, IADLs, and work duties. LTG Duration 8 weeks Four Impairment CS AROM deficits Short Term Goal (STG) Pt's cervical spine rotation AROM to improve to 65 degress or better bilaterally to show improving ROM to perform ADLs and IADLs with improved ease. STG Duration 4 weeks Fci Goal (LTG) Pt's cervical spine rotation AROM to improve to 70 degress or better bilaterally to show improved ROM to perform ADLs and IADLs with improved ease. Three Impairment CS AROM deficits Short Term Goal (STG) Pt's cervical spine lateral flexion AROM to be 45 degrees bilaterally or better to show improving ROM to perform ADLs and IADLs with improved ease. STG Duration 4 weeks [employer] Service Sales Consultant Goal (LTG) Pt's cervical spine lateral flexion AROM to improve to 45 degrees and to be symmetrical bilaterally to show improved ROM to perform ADLs and IADLs with improved ease. LTG Duration 8 weeks Two Impairment CS AROM deficits Short Term Goal (STG) Pt's cervical spine extension AROM to improve to 50 degress or better to show improving ROM to perform ADLs and IADLs with improved ease. STG Duration 4 weeks Fci Goal (LTG) Pt's cervical spine extension AROM to improve to 60 degress or better to show improved ROM to perform ADLs and IADLs with improved ease. One Impairment Cervical spine AROM deficits Short Term Goal (STG) Pt's cervical spine flexion AROM to improve to 50 degrees or better to show improving ROM to perform ADLs and IADLs with improved ease STG Duration 4 weeks Customer Service Sales Consultant Goal (LTG) Pt's cervical spine flexion AROM to improve to full AROM without symptoms to show improved ROM to perform ADLs and IADLs with improved ease. LTG Duration 8 weeks Assessment Summary Assessment The pt was again provided with education regarding posture and work ergonomics, as well as level of intensity to perform HEP to avoid aggravating his symptoms. He was also educated on use of traction to improve his symptoms, as he state he has a traction machine at home. The pt continues to require verbal cues for proper posture and to elongate spine while performing exercises. He continues to benefit from skilled PT at this time to improve his symptoms. Physical Therapy Plan Frequency and Duration Frequency of Treatment 2x/Week Duration of treatment (weeks) 8 Plan of Care Start Date 10/13/22 Plan of Care End Date 12/08/22 Therapeutic Interventions Therapeutic Interventions Manual Therapy,Neuromuscular Re-education,Self-Care/Home Management,Soft Tissue Mobilization,Taping, Therapeutic Activities, Therapeutic Exercises Modalities Cold Pack/Ice Massage,Electric Stimulation,Hot Packs Next Visit Focus/Plan Next Note Type Treatment Note Next Visit Plan Assess tolerance to today's visit. Progress cervical spine and UE mobility and strength exercises as tolerated.
--- NOTE | 2023-01-18 15:06 | PT.OPDS ---
Current Diagnoses Other chronic pain (11/09/22) Pain in right shoulder (11/09/22) Pain in left shoulder (11/09/22) Radiculopathy, cervical region (11/09/22) Visit Care Team Role Provider Type Stefan Saravia MD Family Provider Physician Primary Care Provider Specialty: Internal Medicine Address: [address] [place] [address], [address], [place], [address] Email: [email or web address] Paco Jasso DO Attending Provider Non-Staff Referring Provider Specialty: Orthopedic Surgery Address: [address] [place] [address] , [place], [address] Email: Visit Number Visit Number 5 Discharge Summary PT-OP-B Current Condition Start: 10/13/22 15:45 Freq: Status: Active Protocol: Document 10/13/22 15:46 AB (Rec: 10/13/22 17:33 AB [id number]) Current Condition History of Current Condition Onset Date Chronic Current Complaints Weakness and N/T down bilateral UEs. History of Current Condition Pt reports his symptoms have been occurring on and off since before the start of the COVID pandemic. He states a couple of months ago while he was at work, he began experiencing LUE weakness and loss of control/coordination, and went to the ER. Work up and imaging done at ER revealed no significant findings such as stroke. Yard work, standing for prolonged periods, heavy lifting, moving his head. Prescribed pain medication helped his symptoms tremendously. Heat and ice help to relieve his symptoms. Prior Treatments and Tests MRI, EMG Future Testing and Treatments Planned Follow up with Dr. Jasso on . Treatment Goals Patient/Caregiver Goals To improve his symptoms and regain strength. Prior Functional Status Baseline Function- ADL's Independent Baseline Function- Mobility Independent Current Functional Impairments (Reported) Functional Limitations- ADL's Pt has symptoms with ADLs that involve a lot of UE use. Functional Limitations- Work/School Pt has symptoms at time while at work but is able to work through them. PT-OP-C Subjective Start: 10/13/22 15:45 Freq: Status: Active Protocol: Document 11/09/22 15:30 AB (Rec: 11/09/22 17:13 AB [id number]) OP-PT Subjective Patient Comments Patient Comments The pt reports he continues with nerve related pain, though he has not found anything specific that provokes it, nor any particular patterns. Patient Reported Progress Same PT-OP-H Neuro Start: 10/13/22 15:45 Freq: Status: Active Protocol: Document 10/13/22 15:46 AB (Rec: 10/13/22 17:33 AB [id number]) Sensation Evaluation Gross Sensation Gross Sensation Left UE Impaired,Right UE Impaired Sensation Description Numbness,Tingling Dermatome Impairments C2,C3,C4,C5,C6,C7,C8,T1 PT-OP-J Posture/Palpation/Skin Start: 10/13/22 15:45 Freq: Status: Active Protocol: Document 10/13/22 15:46 AB (Rec: 10/13/22 17:33 AB [id number]) Posture Evaluation Position Standing Evaluation View Lateral Head/C-Spine Posture Forward Head T-Spine Posture Increased Kyphosis Palpation Assessment Location Two Palpation Location Cervical spine Palpation Findings None/Normal Palpation Details Denies TTP or with lateral glides One Palpation Location bilateral shoulders Palpation Findings None/Normal PT-OP-K Range of Motion Start: 10/13/22 15:45 Freq: Status: Active Protocol: Document 10/13/22 15:46 AB (Rec: 10/13/22 17:33 AB [id number]) Cervical Spine Range of Motion Cervical Spine Active Degrees Testing Position Sitting Flexion 45 Extension 35 Rotation Left 60 Rotation Right 60 Lateral Flexion Left 40 Lateral Flexion Right 35 Comments Pain with all motions in posterior neck Shoulder Goniometric Range of Motion Shoulder Right Active Shoulder ROM WFL Yes Testing Position Sitting Flexion 160 Abduction 155 External Rotation at 0 degrees Abduction 60 Internal Rotation Behind Back (text) L1 Comments Functional ER: C7 Pain in all motions in lateral shoulder Left Active Shoulder ROM WFL Yes Testing Position Sitting Flexion 130 Abduction 160 External Rotation at 0 degrees Abduction 60 Internal Rotation Behind Back (text) L1 Comments Functional ER: C7 Pain in all motions in superior and lateral shoulder PT-OP-L Special Tests Start: 10/13/22 15:45 Freq: Status: Active Protocol: Document 10/13/22 15:46 AB (Rec: 10/13/22 17:33 AB [id number]) Special Tests Cervical Spine Special Tests Traction Test Results Positive Comments Relief with traction/ distraction, increased pain with compression PT-OP-M Strength Start: 10/13/22 15:45 Freq: Status: Active Protocol: Document 10/13/22 15:46 AB (Rec: 10/13/22 17:33 AB [id number]) Cervical Spine Strength Cervical Spine Manual Muscle Testing Testing Position Sitting Flexion (C1-2) 4 Good Extension 4 Good Rotation Left 4 Good Rotation Right 4 Good Lateral Flexion Left (C3) 4 Good Lateral Flexion Right (C3) 4 Good Comments Mild pain with all MMT Shoulder Strength Shoulder Manual Muscle Testing Right Flexion 4- Good- Extension 4+ Good+ Abduction (C5) 4- Good- External Rotation 3+ Fair+ Internal Rotation 4- Good- Comments Pain with ER, IR, ABD Left Flexion 4- Good- Extension 4+ Good+ Abduction (C5) 4- Good- External Rotation 3+ Fair+ Internal Rotation 4- Good- Comments Pain with ER, IR, ABD Elbow/Forearm Strength Elbow and Forearm Manual Muscle Testing Right Flexion (C6) 5 Normal Extension (C7) 5 Normal Comments Denies pain Left Flexion (C6) 5 Normal Extension (C7) 5 Normal Comments Denies pain Wrist Strength Wrist Manual Muscle Testing Right Flexion (C7) 5 Normal Extension (C6) 5 Normal Comments Denies pain Left Flexion (C7) 5 Normal Extension (C6) 5 Normal Comments Denies pain PT-OP-T Assessment and Plan Start: 10/13/22 15:45 Freq: Status: Active Protocol: Document 01/18/23 15:05 AB (Rec: 01/18/23 15:06 [id number]) Physical Therapy Plan Discharge Physical Therapy Discharge Reasons No Longer Attending PT Discharge Comments PT has attempted to call pt and has left VM, but pt has not returned call. Therefore, pt will be discharged from PT.
== END 2023-01-19 13:01 | disposition home or self-care (01) ==
LOC: PHYS 15:30
PROVIDERS: Family Provider Internal Medicine; PCP Internal Medicine; Referring Provider Orthopaedic Surgery Orthopaedic Surgery of the Spine; Visit Provider Orthopaedic Surgery Orthopaedic Surgery of the Spine
DX: M54.12 Radiculopathy, cervical region (principal); M25.511 Pain in right shoulder; G89.29 Other chronic pain; M25.512 Pain in left shoulder
CPT/HCPCS: 97110; 97140; 97162

== ENCOUNTER → 2022-11-17 15:47 | Outpatient (CLI) | payer OTHER, SELFPAY ==
--- NOTE | 2022-11-17 15:50 | DI.RAD.S_ITS ---
PROCEDURE: XR ANKLE LT 2V INDICATIONS: acute left foot pain and swelling, possible gout TECHNIQUE: 3 views of the ankle were acquired. COMPARISON: [facility], CR, XR FOOT LT 2V, 11/17/2022, 16:02. FINDINGS: Bones: No fractures or dislocations. Ankle mortise is normally aligned. No suspicious bony lesions. Calcaneal spur is present. Soft tissues: No tibiotalar joint effusion. Achilles tendon appears normal. IMPRESSION: No visualized acute fracture or dislocation. However, if clinical concern and/or pain persist, short interval imaging followup in 7-10 days is recommended, as occult injury cannot be definitively excluded. Dictated by: Cecy Rudd M.D. on 11/17/2022 at 16:21 Approved by: Cecy Rudd M.D. on 11/17/2022 at 16:21
--- NOTE | 2022-11-17 15:50 | DI.RAD.S_ITS ---
PROCEDURE: XR FOOT LT 2V INDICATIONS: acute left foot pain and swelling, possible gout TECHNIQUE: 3 views of the foot were acquired. COMPARISON: [facility], CR, XR ANKLE LT 2V, 11/17/2022, 16:05. FINDINGS: Bones: No fractures or dislocations. No suspicious bony lesions. Calcaneal spur is present. Soft tissues: No tibiotalar joint effusion. Achilles tendon appears normal. IMPRESSION: No visualized erosions to suggest gout. Dictated by: Cecy Rudd M.D. on 11/17/2022 at 16:19 Approved by: Cecy Rudd M.D. on 11/17/2022 at 16:20
[2022-11-17 18:08] LABS: Add Manual Diff / Slide Review NO; Basophils Absolute Auto 100 /uL (0-100); Basophils Percent Auto 0.9 % (0-2); Eosinophils Absolute Auto 300 /uL (0-450); Eosinophils Percent Auto 2.8 % (2-4); Hematocrit 43.3 % (41-53); Hemoglobin 14.8 g/dL (13.5-17.5); Lymphocytes Absolute Auto 2200 /uL (1100-4500); Lymphocytes Percent Auto 22.2 % (25-40); Mean Corpuscular HGB Conc 34.2 % (30-36); Mean Corpuscular Hemoglobin 29.4 PG (26-34); Monocytes Absolute Auto 1000 /uL (0-900); Monocytes Percent Auto 10.2 % (3-14); Neutrophils Absolute Auto 6300 /uL (1500-7000); Neutrophils Percent Auto 63.9 % (50-75); Platelet Count 239 X10^3/uL (150-400); Red Blood Cell Count 5.03 X10^6/uL (4.5-5.9); Red Cell Distribution Width 15.8 % (11.6-14.8); White Blood Cell Count 9.9 X10^3/uL (4.5-11.0)
[2022-11-17 18:15] LABS: Lactate (Lactic Acid) 1.6 mmol/L (0.7-2.1)
[2022-11-17 18:16] LABS: BUN Creatinine Ratio 28.1 (6-22); Blood Urea Nitrogen 25 mg/dL (9-20); Calcium 9.4 mg/dL (8.4-10.2); Carbon Dioxide 27 mmol/L (22-32); Chloride 101 mmol/L (98-107); Estimated Glomerular Filt Rate > 60 mL/min (>60); Glucose 133 mg/dL (80-110); HEMOLYSIS 24 (0-50); Potassium 3.3 mmol/L (3.4-5.1); Sodium 138 mmol/L (137-145); Uric Acid 7.5 mg/dL (3.5-8.5)
== END ==
PROVIDERS: Family Provider Internal Medicine; PCP Internal Medicine; Referring Provider Physician Assistant; Visit Provider Physician Assistant
DX: M77.32 Calcaneal spur, left foot (principal); M79.672 Pain in left foot; M79.89 Other specified soft tissue disorders
CPT/HCPCS: 73600; 73620; 80048; 83605; 84550; 85025

== ENCOUNTER → 2022-12-11 09:05 | Outpatient (CLI) | payer OTHER, SELFPAY ==
--- NOTE | 2022-12-11 09:07 | DI.RAD.S_ITS ---
PROCEDURE: XR LUMBAR SPINE MIN 4V INDICATIONS: LOW BACK PAIN TECHNIQUE: 5 views of the lumbar spine were acquired, including bilateral oblique views. COMPARISON: [facility], , L-SPINE 6V INCLUDING BENDING, 04/08/2011, 8:46. FINDINGS: Bones: 5 nonrib-bearing vertebrae are present. Grade 1 anterolisthesis L5 on S1 about 1.4 cm, increased compared to prior. Trace retrolisthesis L1 on 2.. No vertebral body compression fractures. No suspicious bony lesions. Soft tissues: Overlying bowel gas pattern is normal. No suspicious soft tissue calcifications. Oblique images: Bilateral L5 pars defects are not well seen given overlying soft tissue. IMPRESSION: 1. Progression of L5 on S1 anterolisthesis compared to the remote prior study due to known bilateral pars defects of L5. Dictated by: Ashely Renteria M.D. on 12/11/2022 at 19:33 Approved by: Ashely Renteria M.D. on 12/11/2022 at 19:36
== END ==
PROVIDERS: Family Provider Internal Medicine; PCP Internal Medicine; Referring Provider Anesthesiology; Visit Provider Anesthesiology
DX: M54.50 Low back pain, unspecified (principal); M43.16 Spondylolisthesis, lumbar region
CPT/HCPCS: 72110

== ENCOUNTER 2023-01-18 07:17 | Outpatient (CLI) | payer OTHER, SELFPAY ==
[2023-01-18] VITALS (8 sets, daily range): BP systolic 141–180; BP diastolic 74–95; PULSE 64–72; RESP 14–20; TEMP 36.4; O2SAT 92–97
--- NOTE | 2023-01-18 07:18 | DI.RAD.S_ITS ---
PROCEDURE: PAIN C/T INTERLAMINAR INJECT INDICATIONS: RADICULOPATHY COMPARISON: None. FINDINGS: Fluoroscopic spot filming was performed to verify placement of spinal needles at the right C7-T1 level(s), as labeled on the films. Appropriate location(s) of the needle tip(s) was confirmed by injection of iodinated contrast. IMPRESSION: Intraoperative fluoroscopy for right C7-T1 injection. Dictated by: Ashely Renteria M.D. on 01/18/2023 at 12:15 Approved by: Ashely Renteria M.D. on 01/18/2023 at 12:16
[2023-01-18] MEDS: MIDAZOLAM 2 MG/2 ML VIAL IV (08:13)
[2023-01-18] MEDS: iopamidoL 15 ML VIAL 3 ML INJ (08:17)
[2023-01-18] MEDS: DEXAMETHASONE 10 MG/ML VIAL INJ (08:17)
--- NOTE | 2023-01-18 10:00 | P.PCN_ITS ---
Date/Time/Diagnoses Date of procedure: 01/18/23 Time of procedure: 08:00 Procedure Notes Physician: Donte Zamorano Total Fluoroscopy time (seconds): 21 Total sedation minutes: 12 Procedure in detail & Post-procedure care: C7-T1 Interlaminar Epidural Steroid Injection Indications: Francis is presenting for treatment of cervical radiculopathy with neck and arm pain. Preoperative diagnosis: Cervical radiculopathy Postoperative diagnosis: Same Focused Examination: Ax3 Mood and affect are normal Vital Signs: VSS ASA: 2 Consent: Following review of allergies and potential side effects/complications, including, but not necessarily limited to, infection, allergic reaction, local tissue breakdown, stroke, temporary or permanent nerve injury, paralysis, and possible , the patient indicated that they understood and agreed to p roceed.? An informed consent document was signed by the patient, witnessed by a nurse and placed in the patient's chart.? Additionally, other treatment options including medications and physical therapy were reviewed with the patient. All questions were answered. Site was then marked. Anesthesia: After review of previous anesthetic history and IV conscious sedation, the patient was deemed safe to proceed with today's procedure with IV conscious sedation. IV sedation was accomplished with midazolam 2 mg administered by the RN after physician order. Sedation was titrated to patient comfort during the course of the procedure. Patient remained responsive to all verbal commands. Position: Prone Monitoring: NIBP, Pulse oximetry, 3 lead EKG Needle used: 18 G 3.5? Tuohy Contrast: Isovue 300-M 2 mL Injectate: Dexamethasone 10 mg followed by Normal Saline 2 mL Technique: The skin was prepped with chloraprep and then draped in a sterile fashion. Time out was performed as per protocol. Oxygen applied via NC. Skin and subcutaneous structures of the needle entry site was then infiltrated with 3 mL of lidocaine 1%. Under AP, lateral and contralateral oblique fluoroscopic control, the Tuohy needle was guided into the C7-T1 epidural space. The space was accessed with loss of resistance technique. Isovue 300-M was then injected and the spread was consistent with the epidural space. There was no evidence for intravascular or intrathecal uptake. After negative aspiration, the above- mentioned injectate was then slowly administered and the needle withdrawn. The patient expressed no unusual discomfort or paresthesias during the injection. Band-Aids applied to injection sites. EBL: less than 1 ml Complications: None Post Procedure: Patient was taken to the recovery and monitored. The patient was provided a Pain Log to continue to record the patient's response to the target- specific procedure prior to the patient's follow-up visit with the referring physician. Patient was stable upon discharge. Detailed post procedure instructions were provided. Patient was asked to call in the event of worsening pain, fever, weakness, numbness or bladder or bowel incontinence.
== END 2023-01-18 08:49 | disposition home or self-care (01) ==
PROVIDERS: Family Provider Internal Medicine; PCP Internal Medicine; Referring Provider Anesthesiology; Visit Provider Anesthesiology
DX: M54.12 Radiculopathy, cervical region (principal)
CPT/HCPCS: 62321; 99152; J1100; J2250

== ENCOUNTER → 2023-02-09 15:31 | Outpatient (CLI) | payer OTHER, SELFPAY ==
--- NOTE | 2023-02-09 15:34 | DI.RAD.S_ITS ---
PROCEDURE: XR HAND RT MIN 3V INDICATIONS: Right hand pain/swelling TECHNIQUE: 3 views of the hand(s) acquired. COMPARISON: None. FINDINGS: Bones: No acute fractures or dislocations. Polyarticular background degenerative changes of the right hand. Severe degenerative changes involving the 1st carpometacarpal joint. Mild degenerative changes of the triscaphe joint. No definite osseous erosions identified. Carpal bones are normally aligned. No suspicious bony lesions. Soft tissues: No suspicious soft tissue calcifications. Mild diffuse soft tissue swelling of the right hand and fingers. IMPRESSION: Mild diffuse soft tissue swelling of the right hand and fingers without underlying acute osseous abnormalities seen. Mild background polyarticular degenerative changes. Moderate degenerative changes of the 1st carpometacarpal joint. No suspicious osseous erosions. Dictated by: Carlos Fried M.D. on 02/09/2023 at 16:48 Approved by: Carlos Fried M.D. on 02/09/2023 at 16:50
[2023-02-09 16:32] LABS: Add Manual Diff / Slide Review NO; Basophils Absolute Auto 0 /uL (0-100); Basophils Percent Auto 0.3 % (0-2); Eosinophils Absolute Auto 200 /uL (0-450); Eosinophils Percent Auto 2.1 % (2-4); Hematocrit 43.4 % (41-53); Hemoglobin 14.5 g/dL (13.5-17.5); Lymphocytes Absolute Auto 2100 /uL (1100-4500); Lymphocytes Percent Auto 18.6 % (25-40); Mean Corpuscular HGB Conc 33.5 % (30-36); Mean Corpuscular Hemoglobin 28.8 PG (26-34); Mean Corpuscular Volume 85.9 fL (80-100); Monocytes Absolute Auto 1300 /uL (0-900); Monocytes Percent Auto 11.6 % (3-14); Neutrophils Absolute Auto 7600 /uL (1500-7000); Neutrophils Percent Auto 67.4 % (50-75); Platelet Count 270 X10^3/uL (150-400); Red Blood Cell Count 5.05 X10^6/uL (4.5-5.9); Red Cell Distribution Width 15.9 % (11.6-14.8); White Blood Cell Count 11.2 X10^3/uL (4.5-11.0)
[2023-02-09 17:09] LABS: Erythrocyte Sedimentation Rate 18 MM/HR (0-15)
== END ==
PROVIDERS: Family Provider Internal Medicine; PCP Internal Medicine; Referring Provider Anesthesiology; Visit Provider Anesthesiology
DX: M79.89 Other specified soft tissue disorders (principal); M79.641 Pain in right hand; M79.18 Myalgia, other site; M48.02 Spinal stenosis, cervical region; G56.03 Carpal tunnel syndrome, bilateral upper limbs; M54.2 Cervicalgia
CPT/HCPCS: 36415; 73130; 85025; 85651; 99214

== ENCOUNTER → 2023-03-09 08:06 | Outpatient (CLI) | payer OTHER, SELFPAY ==
[2023-03-09 08:50] LABS: Influenza A - CEPHEID Flu A NEGATIVE (NEGATIVE); Influenza B - CEPHEID Flu B NEGATIVE (NEGATIVE); Respiratory Syncytial Virus Negative (Negative)
[2023-03-09 10:58] LABS: COVID-19 CEPHEID 4-PLEX PCR Negative (Negative)
== END ==
PROVIDERS: Family Provider Internal Medicine; PCP Internal Medicine; Visit Provider Nurse Practitioner Family
DX: R05.1 Acute cough (principal)
CPT/HCPCS: 0241U

== ENCOUNTER → 2023-03-11 11:03 | Outpatient (CLI) | payer OTHER, SELFPAY ==
--- NOTE | 2023-03-11 11:07 | DI.RAD.S_ITS ---
PROCEDURE: XR CHEST 2V INDICATIONS: Shortness of breath TECHNIQUE: 2 views of the chest were acquired. COMPARISON: [facility], CHEST 2 VIEW, 03/11/2016, 9:21. [facility], , XR CHEST 1V, 07/17/2020, 5:34. FINDINGS: Surgical changes and devices: None. Lungs and pleura: Focal opacity seen within the right mid lung, which is attributed to fluid along the right minor fissure. No additional abnormal pleural fluid can be seen. The lungs otherwise appear clear. Mediastinum: Mediastinal contours are normal. Heart size is normal. Bones and chest wall: No suspicious bony abnormalities. Age-appropriate bony degenerative changes are seen. Soft tissues appear unremarkable. IMPRESSION: Fluid seen along the right minor fissure. Please consider short-term follow-up versus CT for further evaluation. Dictated by: Isra Caicedo M.D. on 03/11/2023 at 10:40 Approved by: Isra Caicedo M.D. on 03/11/2023 at 10:41
== END ==
PROVIDERS: Family Provider Internal Medicine; PCP Internal Medicine; Referring Provider Registered Nurse; Visit Provider Registered Nurse
DX: R06.02 Shortness of breath (principal)
CPT/HCPCS: 71046

== ENCOUNTER → 2023-10-05 15:08 | Outpatient (CLI) | payer OTHER, SELFPAY ==
[2023-10-05 15:29] LABS: Add Manual Diff / Slide Review NO; Basophils Absolute Auto 100 /uL (0-100); Basophils Percent Auto 1.4 % (0-2); Eosinophils Absolute Auto 200 /uL (0-450); Eosinophils Percent Auto 2.1 % (2-4); Hematocrit 44.7 % (41-53); Hemoglobin 15.1 g/dL (13.5-17.5); Lymphocytes Absolute Auto 2000 /uL (1100-4500); Lymphocytes Percent Auto 20.7 % (25-40); Mean Corpuscular HGB Conc 33.8 % (30-36); Mean Corpuscular Hemoglobin 29.2 PG (26-34); Mean Corpuscular Volume 86.4 fL (80-100); Monocytes Absolute Auto 800 /uL (0-900); Monocytes Percent Auto 8.3 % (3-14); Neutrophils Absolute Auto 6500 /uL (1500-7000); Neutrophils Percent Auto 67.5 % (50-75); Platelet Count 261 X10^3/uL (150-400); Red Blood Cell Count 5.17 X10^6/uL (4.5-5.9); Red Cell Distribution Width 15.6 % (11.6-14.8); White Blood Cell Count 9.7 X10^3/uL (4.5-11.0)
[2023-10-05 16:01] LABS: Alanine Aminotransferase 39 IU/L (<50); Albumin 4.3 g/dL (3.5-5.0); Albumin Globulin Ratio 1.4 (1.0-2.8); Alkaline Phosphatase 40 U/L (38-126); Aspartate Aminotransferase 29 IU/L (17-59); BUN Creatinine Ratio 26.9 (6-22); Bilirubin Total 0.3 mg/dL (0.2-1.3); Blood Urea Nitrogen 28 mg/dL (9-20); Calcium 9.3 mg/dL (8.4-10.2); Carbon Dioxide 29 mmol/L (22-32); Chloride 101 mmol/L (98-107); Estimated Glomerular Filt Rate > 60 mL/min (>60); Globulin 3.1 g/dL (1.7-4.1); Glucose 143 mg/dL (80-110); HEMOLYSIS < 15 (0-50); Hemoglobin A1C% w Est Avg Glu 6.5 % (4.0-6.0); Potassium 3.6 mmol/L (3.4-5.1); Sodium 139 mmol/L (137-145); Total Protein 7.4 g/dL (6.3-8.2)
[2023-10-05 16:13] LABS: Free T3, Triiodothyronine Free 3.46 pg/mL (2.77-5.27); Free T4, Direct Thyroxine 1.01 ng/dL (0.78-2.19)
[2023-10-05 16:27] LABS: Thyroid Stimulating Hormone 5.94 uIU/mL (0.47-4.68)
== END ==
PROVIDERS: Family Provider Internal Medicine; PCP Internal Medicine; Referring Provider Internal Medicine; Visit Provider Internal Medicine
DX: I10 Essential (primary) hypertension (principal); E03.9 Hypothyroidism, unspecified; R73.02 Impaired glucose tolerance (oral)
CPT/HCPCS: 36415; 80053; 83036; 84439; 84443; 84481; 85025

== ENCOUNTER 2023-11-05 21:32 | Emergency (ER) | payer OTHER, SELFPAY ==
[2023-11-05] VITALS (15 sets, daily range): BP systolic 135–195; BP diastolic 62–75; PULSE 65–77; RESP 2–24; TEMP 37.1; O2SAT 92–97; BMI 40.0
--- NOTE | 2023-11-05 21:40 | EKG_ITS ---
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
--- NOTE | 2023-11-05 21:42 | DI.RAD.S_ITS ---
PROCEDURE: XR CHEST 1V INDICATIONS: chest pain TECHNIQUE: One view of the chest was acquired. COMPARISON: [facility], CR, XR CHEST 2V, 03/11/2023, 11:15. FINDINGS: Surgical changes and devices: None. Lungs and pleura: Lungs are clear. No pleural effusions or pneumothorax. Mediastinum: Mediastinal contours appear normal. Heart size is normal. Bones and chest wall: No suspicious bony lesions. Overlying soft tissues appear unremarkable. IMPRESSION: No acute cardiopulmonary abnormality is seen. Dictated by: Ashely Renteria M.D. on 11/05/2023 at 22:35 Approved by: Ashely Renteria M.D. on 11/05/2023 at 22:35
[2023-11-05] MEDS: ASPIRIN 81 MG CHEW TAB 324 MG PO (21:52)
--- NOTE | 2023-11-05 21:54 | ED_ITS ---
HPI - Chest Pain General Chief Complaint: Chest Pain Stated Complaint: chest pain Time Seen by Provider: 11/05/23 21:39 Source: patient Mode of arrival: Family Vehicle Limitations: no limitations History of Present Illness HPI narrative: 62-year-old male with history of hypertension, diabetes, aortic stenosis, GERD presents by private vehicle for chest pain. Patient states that he was had central chest pain since earlier this morning. He states that he has had similar pains in the past and has been evaluated for them in the emergency department. He states that he was previously been told that he had acid reflux. This evening the pain seemed to move into his left chest and so he decided to come in for evaluation. Denies history of heart disease, has never seen a heart doctor. Related Data Home Medications Medication Instructions Recorded Confirmed levothyroxine 200 mcg capsule 200 mcg PO DAILY 02/09/23 11/05/23 needle (disp) 25 gauge 25 gauge x #1,000 ea 11/05/23 11/05/23 1 (Poly Hub Needle) syringe with needle 3 mL 21 gauge #1 ea 11/05/23 11/05/23 x 1 (BD Luer-Hannah Syringe) syringe with needle, safety 3 mL #50 ea 11/05/23 11/05/23 25 gauge x 1 (BD Integra Syringe) Previous Rx's Medication Instructions Recorded Syringes syr IM SEE INSTRUCTIONS ##7 05/02/17 mometasone-formoterol HFA 100 2 puff inhalation BID #13 grams 04/19/21 mcg-5 mcg/actuation aerosol inhaler syringe with needle 3 mL 20 gauge See Rx Instructions .Route 10/25/21 x 1 (BD Luer-Hannah Syringe) .COMPLEX #7 ea albuterol sulfate 90 mcg/actuation 1 inh inhalation Q4-6H PRN wheeze 11/29/22 aerosol inhaler #6.7 grams bupropion HCl 150 mg tablet,12 hr 150 mg PO BID #180 tabs 11/29/22 sustained-release gabapentin 300 mg capsule 300 mg PO TID PRN numbness and 11/29/22 tingling #270 caps hydrochlorothiazide 25 mg tablet 25 mg PO DAILY #90 tabs 11/29/22 meloxicam 15 mg tablet 15 mg PO DAILY #90 tabs 11/29/22 omeprazole 40 mg capsule,delayed 40 mg PO DAILY #90 caps 11/29/22 release methocarbamol 750 mg tablet 750 mg PO Q8H PRN muscle spasm #30 05/29/23 tabs furosemide 20 mg tablet 20 mg PO DAILY #90 tabs 10/05/23 tadalafil 20 mg tablet 10 - 20 mg (0.5 - 1 x 20 mg) PO 10/05/23 DAILY PRN sexual activity #45 tabs testosterone cypionate 200 mg/mL 450 mg (2.25 mL) IM .[id number] #45 mL 10/05/23 intramuscular oil (Depo-Testosterone) trazodone 50 mg tablet 50 mg PO BEDTIME #30 tabs 11/03/23 cephalexin 500 mg capsule 500 mg PO QID 7 days #28 caps 11/05/23 Allergies Allergy/AdvReac Type Severity Reaction Status Date / Time lisinopril AdvReac Mild Cough Verified 11/05/23 21:45 Patient History Medical History Diabetes type 2, controlled Myofascial pain Foraminal stenosis of cervical region Bilateral carpal tunnel syndrome Impingement of left shoulder 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 (~05/2023) Cervicalgia Impaired glucose tolerance Aortic valve sclerosis Strain of right rotator cuff capsule BMI 38.0-38.9,adult Excessive daytime sleepiness Asthma, mild persistent Chronic headaches (02/22/06) Low testosterone in male (2009) Hypothyroidism (1994) Hearing loss (2007) GERD (gastroesophageal reflux disease) Hematuria Closed head injury (02/22/06) Obstructive sleep apnea of adult Essential hypertension (11/12/15) Recurrent major depressive disorder, in full remission (01/01/14) Post-traumatic headache, not intractable (03/25/13) Hypogonadism in male (08/13/12) Gastroesophageal reflux disease Hyperlipidemia (11/11/10) Acquired hypothyroidism (11/11/10) Surgical History Status post knee surgery (08/07/17) History of vasectomy (04/2010) History of knee replacement (2003) Family History Brother Diabetes mellitus Father Diabetes mellitus Heart attack Mother Cancer Diabetes mellitus Stroke Sister Diabetes mellitus Social History marital status: number of children: 2 household members: spouse lives independently: Yes caregiver/support person: No housing: house pets and animals: Yes education level: college occupational status: employed current occupational exposures/hazards: No Previous occupational history: 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 [employer]/faith: [place] travel history: recent and other leisure activities: sports and other Smoking Status: Never smoker Tobacco: How many years used: 0 Smokeless tobacco user: chewing tobacco quit status: quit date established second hand exposure: Yes (Childhood, When at [employer]) alcohol intake: current substance use type: does not use Smoking Status: Never smoker Substance Use Type: does not use Exam Initial Vital Signs Initial Vital Signs: Vital Signs Temperature 98.7 F 11/05/23 21:42 Pulse Rate 77 11/05/23 21:42 Respiratory Rate 20 11/05/23 21:42 Blood Pressure 195/74 H 11/05/23 21:42 Pulse Oximetry 97 11/05/23 21:42 Oxygen Delivery Method Room Air 11/05/23 21:42 Const: Awake, alert, uncomfortable, nontoxic appearing Cardiac: regular rate, regular rhythm, systolic murmur heard near L sternal border RESP: unlabored, clear bilaterally, no wheezing GI: Soft, nontender, nondistended, no rebound, no guarding MSK: Atraumatic, full range of motion, pulses equal, no pitting edema Skin: Warm, Dry, intact, cellulitis RLE observed with margins marked by pen Neuro: AO x3, CN II-XII grossly intact, moves all extremities Course Orders Ordered: ED Orders 11/05/23 21:42 XR chest 1V Stat EKG-12 Lead Stat 11/05/23 21:47 Complete Blood Count AUTO DIFF Stat Comprehensive Metabolic Panel Stat D Dimer Stat Lipase Stat Magnesium Stat NT-proBNP (BNP-Adult 18+) Stat PTT Partial Thromboplastin Dandre Stat Prothrombin Time INR Stat Troponin & CK Cardiac Panel Stat 11/06/23 00:00 US periph venous low extrem lt Stat 11/06/23 00:05 Trop I [Troponin I] Stat 11/06/23 00:17 EKG-12 Lead Stat Discontinued Medications Aspirin (Aspirin 81 Mg Chew Tab) 324 mg PO NOW ONE Stop: 11/05/23 21:43 Last Admin: 11/05/23 21:52 Dose: 324 mg Documented By: LINA Morphine Sulfate (Morphine 4 Mg/Ml Inj) 4 mg IV NOW ONE Stop: 11/05/23 22:07 Last Admin: 11/05/23 22:22 Dose: 4 mg Documented By: LINA Ondansetron HCl (Ondansetron 4 Mg/2 Ml Inj) 4 mg IV NOW ONE Stop: 11/05/23 22:21 Last Admin: 11/05/23 22:22 Dose: 4 mg Documented By: LINA Vital Signs Vital signs: Vital Signs - 8 hr 11/05/23 21:42 11/05/23 21:51 11/05/23 21:54 Temperature 98.7 F Pulse Rate 77 71 72 Respiratory Rate 20 20 Blood Pressure 195/74 H Pulse Oximetry 97 96 Oxygen Delivery Method Room Air 11/05/23 21:54 11/05/23 21:57 11/05/23 21:57 Temperature Pulse Rate 71 Respiratory Rate 2 L Blood Pressure 175/75 H 164/71 H Pulse Oximetry 96 Oxygen Delivery Method 11/05/23 22:00 11/05/23 22:00 11/05/23 22:15 Temperature Pulse Rate 72 67 Respiratory Rate 8 L 15 Blood Pressure 163/71 H Pulse Oximetry 96 95 Oxygen Delivery Method 11/05/23 22:15 11/05/23 22:30 11/05/23 22:31 Temperature Pulse Rate 75 73 Respiratory Rate 19 24 Blood Pressure 143/62 H Pulse Oximetry 95 95 Oxygen Delivery Method 11/05/23 22:31 11/05/23 22:45 11/05/23 22:45 Temperature Pulse Rate 69 Respiratory Rate 19 Blood Pressure 165/71 H 153/70 H Pulse Oximetry 92 Oxygen Delivery Method 11/05/23 23:00 11/05/23 23:00 11/05/23 23:14 Temperature Pulse Rate 67 67 Respiratory Rate 18 19 Blood Pressure 146/66 H Pulse Oximetry 93 93 Oxygen Delivery Method 11/05/23 23:15 11/05/23 23:30 11/05/23 23:31 Temperature Pulse Rate 66 67 Respiratory Rate 17 22 Blood Pressure 135/62 Pulse Oximetry 94 92 Oxygen Delivery Method Room Air 11/05/23 23:31 11/05/23 23:45 11/05/23 23:45 Temperature Pulse Rate 65 Respiratory Rate 22 Blood Pressure 150/65 H 153/66 H Pulse Oximetry 95 Oxygen Delivery Method 11/06/23 00:00 11/06/23 00:00 11/06/23 00:15 Temperature Pulse Rate 62 64 Respiratory Rate 16 Blood Pressure 142/64 H Pulse Oximetry 95 94 Oxygen Delivery Method 11/06/23 00:15 11/06/23 00:30 11/06/23 00:39 Temperature Pulse Rate Respiratory Rate Blood Pressure 146/68 H 146/67 H 123/56 L Pulse Oximetry Oxygen Delivery Method 11/06/23 00:39 11/06/23 00:46 11/06/23 00:46 Temperature Pulse Rate 64 69 Respiratory Rate 17 19 Blood Pressure 133/62 Pulse Oximetry 97 95 Oxygen Delivery Method Room Air MDM - Chest Pain Lab Data 11/05/23 21:47 11/05/23 21:47 Labs: Lab Results 11/05/23 11/06/23 Range/Units 21:47 00:05 WBC 10.1 (4.5-11.0) X10^3/uL RBC 5.05 (4.5-5.9) X10^6/uL Hgb 14.8 (13.5-17.5) g/dL Hct 44.2 (41-53) % MCV 87.6 (80-100) fL MCH 29.2 (26-34) PG MCHC 33.4 (30-36) % RDW 16.3 H (11.6-14.8) % Plt Count 243 (150-400) X10^3/uL Neut % (Auto) 71.3 (50-75) % Lymph % (Auto) 17.9 L (25-40) % Douglas % (Auto) 7.3 (3-14) % Eos % (Auto) 2.7 (2-4) % Baso % (Auto) 0.8 (0-2) % Neut # (Auto) 7200 H (3424-2513) /uL Lymph # (Auto) 1800 (6147-2973) /uL Douglas # (Auto) 700 (0-900) /uL Eos # (Auto) 300 (0-450) /uL Baso # (Auto) 100 (0-100) /uL PT 11.9 (9.4-12.5) SECONDS INR 1.0 (0.9-1.3) APTT 36 (25.1-36.5) SECONDS D-Dimer 446 (<500) ng/ml Sodium 134 L (137-145) mmol/L Potassium 3.2 L (3.4-5.1) mmol/L Chloride 100 (98-107) mmol/L Carbon Dioxide 25 (22-32) mmol/L BUN 24 H (9-20) mg/dL Creatinine 0.94 (0.66-1.25) mg/dL Estimated GFR > 60 (>60) mL/min BUN/Creatinine Ratio 25.5 H (6-22) Glucose 168 H (80-110) mg/dL Calcium 9.1 (8.4-10.2) mg/dL Magnesium 2.0 (1.6-2.3) mg/dL Total Bilirubin 0.4 (0.2-1.3) mg/dL AST 33 (17-59) IU/L ALT 37 (<50) IU/L Alkaline Phosphatase 39 (38-126) U/L Total Creatine Kinase 271 H (55-170) U/L Troponin I < 0.012 < 0.012 (0.01-0.034) ng/mL NT-Pro-B Natriuret Pep 32 (<125) pg/mL Total Protein 7.7 (6.3-8.2) g/dL Albumin 4.1 (3.5-5.0) g/dL Globulin 3.6 (1.7-4.1) g/dL Albumin/Globulin Ratio 1.1 (1.0-2.8) Lipase 97 (23-300) U/L Imaging Data Chest x-ray: Radiologist's Impression: PROCEDURE: XR CHEST 1V INDICATIONS: chest pain TECHNIQUE: One view of the chest was acquired. COMPARISON: [facility], , XR CHEST 2V, 03/11/2023, 11:15. FINDINGS: Surgical changes and devices: None. Lungs and pleura: Lungs are clear. No pleural effusions or pneumothorax. Mediastinum: Mediastinal contours appear normal. Heart size is normal. Bones and chest wall: No suspicious bony lesions. Overlying soft tissues appear unremarkable. IMPRESSION: No acute cardiopulmonary abnormality is seen. Dictated by: Ashely Renteria M.D. on 11/05/2023 at 22:35 Approved by: Ashely Renteria M.D. on 11/05/2023 at 22:35 US - DVT: Radiologist's Impression: PROCEDURE: US PERIPH VENOUS LOW EXTREM LT INDICATIONS: LLE SWELLING TECHNIQUE: Real-time imaging, as well as color and pulse Doppler interrogation, were performed of the lower extremity deep veins from the inguinal ligament to the popliteal fossa, with documentation of the visualized calf veins. COMPARISON: None. FINDINGS: The common femoral, femoral, popliteal, and the visualized calf veins are normally compressible, and free of intraluminal thrombus. Color and pulse Doppler demonstrate normal phasic intraluminal flow. There is normal augmentation response to distal compression maneuver. IMPRESSION: 1. No DVT in the left lower extremity. 2. Preliminary report conveyed by the head start assistant teacher to the ordering provider. Dictated by: Ashely Renteria M.D. on 11/06/2023 at 1:22 Approved by: Ashely Renteria M.D. on 11/06/2023 at 1:23 ECG Data Interpretation: Normal sinus rhythm 64 beats per minute. New T-wave inversions in 1, aVL, V4 through V6 compared to EKG in 2021 MDM Narrative Medical decision making narrative: Chest pain since earlier today. Patient does appear to be uncomfortable on exam, denies known history of coronary disease. Initial EKG with a lot of motion artifact in anterior leads, no obvious ST elevation seen. Repeat EKG shows no concerning ST T wave elevations, however there are new T-wave inversions in leads 1, aVL, V4 through V6 that are new compared to EKG from 2021. Chest x-ray negative for acute findings. Pain well controlled with IV medications. After pain controlled blood pressure returned to normal. Troponins undetectable x2. Case discussed with patient's primary care doctor, Dr. Saravia, who stated that with over 12 hours of ongoing symptoms and 2- troponins patient should be stable to go home. He we will make sure that the office contacts patient for a follow up appointment and he will arrange for a stress test and echocardiogram to be ordered for evaluation of the patient's symptoms. Patient informed of PCP recommendations, ED return precautions discussed at bedside. Discharge Plan Departure Patient Disposition: Home Clinical Impression: Chest pain Instructions: DI for Chest Pain Activity Restrictions/Additional Instructions: Your laboratory work and x-ray imaging today were normal. Your EKG showed some changes, however the most recent EKG we have on file is from 2 years prior, so it was uncertain when these changes occurred. I spoke with your primary care doctor, who will arrange for a stress test and echocardiogram on an outpatient basis. If your pain returns or worsens please return to the emergency department for repeat evaluation. Prescriptions: No Action (DME) BD Integra Syringe 3 mL 25 gauge x 1 syringe See Rx Instructions .ROUTE .MEDSUPPLY Qty: 50 Patient Comments: [NO ORIGINAL SIG] Rx Instructions: As directed (DME) Poly Hub Needle 25 gauge x 1 needle See Rx Instructions .ROUTE .MEDSUPPLY Qty: 1000 Patient Comments: [NO ORIGINAL SIG] Rx Instructions: As directed (DME) BD Luer-Hannah Syringe 3 mL 21 gauge x 1 syringe See Rx Instructions .ROUTE .MEDSUPPLY Qty: 1 Patient Comments: [NO ORIGINAL SIG] Rx Instructions: As directed cephalexin 500 mg capsule 500 mg PO QID 7 Days Qty: 28 0RF Syringes IM SEE INSTRUCTIONS Qty: 7 3RF mometasone-formoterol 100-5 mcg/actuation HFA aerosol inhaler 2 puff inhalation BID Qty: 13 3RF BD Luer-Hannah Syringe 3 mL 20 gauge x 1 syringe See Rx Instructions .ROUTE .COMPLEX Qty: 7 2RF Dose Instruction: USE ONE SYRINGE EVERY 4 WEEKS WITH TESTOSTERONE. Rx Instructions: USE ONE SYRINGE EVERY 4 WEEKS WITH TESTOSTERONE. gabapentin 300 mg capsule 300 mg PO TID PRN (Reason: numbness and tingling) Qty: 270 3RF meloxicam 15 mg tablet 15 mg PO DAILY Qty: 90 3RF bupropion HCl 150 mg tablet sustained-release 12 hr 150 mg PO BID Qty: 180 3RF hydrochlorothiazide 25 mg tablet 25 mg PO DAILY Qty: 90 3RF omeprazole 40 mg capsule,delayed release(DR/EC) 40 mg PO DAILY Qty: 90 3RF albuterol sulfate 90 mcg/actuation HFA aerosol inhaler 1 inh INHALATION Q4-6H PRN (Reason: wheeze) Qty: 6.7 3RF methocarbamol 750 mg tablet 750 mg PO Q8H PRN (Reason: muscle spasm) Qty: 30 1RF furosemide 20 mg tablet 20 mg PO DAILY Qty: 90 3RF tadalafil 20 mg tablet 10 - 20 mg PO DAILY PRN (Reason: sexual activity) Qty: 45 4RF Rx Instructions: take approx 30min before activity; do not use more than 1 dose/day testosterone cypionate [Depo-Testosterone] 200 mg/mL oil 450 mg IM .c0tdbyw Qty: 45 0RF trazodone 50 mg tablet 50 mg PO BEDTIME Qty: 30 0RF levothyroxine 200 mcg capsule 200 mcg PO DAILY Referrals: Stefan Saravia MD [Primary Care Provider] - Stand Alone Forms: Patient Portal/API
[2023-11-05 21:56] LABS: Add Manual Diff / Slide Review NO; Basophils Absolute Auto 100 /uL (0-100); Basophils Percent Auto 0.8 % (0-2); Eosinophils Absolute Auto 300 /uL (0-450); Eosinophils Percent Auto 2.7 % (2-4); Hematocrit 44.2 % (41-53); Hemoglobin 14.8 g/dL (13.5-17.5); Lymphocytes Absolute Auto 1800 /uL (1100-4500); Lymphocytes Percent Auto 17.9 % (25-40); Mean Corpuscular HGB Conc 33.4 % (30-36); Mean Corpuscular Hemoglobin 29.2 PG (26-34); Mean Corpuscular Volume 87.6 fL (80-100); Monocytes Absolute Auto 700 /uL (0-900); Monocytes Percent Auto 7.3 % (3-14); Neutrophils Absolute Auto 7200 /uL (1500-7000); Neutrophils Percent Auto 71.3 % (50-75); Platelet Count 243 X10^3/uL (150-400); Red Blood Cell Count 5.05 X10^6/uL (4.5-5.9); Red Cell Distribution Width 16.3 % (11.6-14.8); White Blood Cell Count 10.1 X10^3/uL (4.5-11.0)
[2023-11-05 22:01] LABS: Prothrombin Time 11.9 SECONDS (9.4-12.5)
[2023-11-05 22:04] LABS: PTT Partial Thromboplastin Tim 36 SECONDS (25.1-36.5)
[2023-11-05 22:05] LABS: Alanine Aminotransferase 37 IU/L (<50); Albumin 4.1 g/dL (3.5-5.0); Albumin Globulin Ratio 1.1 (1.0-2.8); Alkaline Phosphatase 39 U/L (38-126); Aspartate Aminotransferase 33 IU/L (17-59); BUN Creatinine Ratio 25.5 (6-22); Bilirubin Total 0.4 mg/dL (0.2-1.3); Blood Urea Nitrogen 24 mg/dL (9-20); Calcium 9.1 mg/dL (8.4-10.2); Carbon Dioxide 25 mmol/L (22-32); Chloride 100 mmol/L (98-107); Creatine Kinase 271 U/L (55-170); Estimated Glomerular Filt Rate > 60 mL/min (>60); Globulin 3.6 g/dL (1.7-4.1); Glucose 168 mg/dL (80-110); HEMOLYSIS 41 (0-50); Lipase 97 U/L (23-300); Potassium 3.2 mmol/L (3.4-5.1); Sodium 134 mmol/L (137-145); Total Protein 7.7 g/dL (6.3-8.2)
[2023-11-05 22:17] LABS: NT-proBNP (BNP-Adult 18+) 32 pg/mL (<125); Troponin I < 0.012 ng/mL (0.01-0.034)
[2023-11-05] MEDS: ONDANSETRON 4 MG/2 ML INJ IV (22:22)
[2023-11-05] MEDS: MORPHINE 4 MG/ML INJ IV (22:22)
[2023-11-05 22:38] LABS: D Dimer 446 ng/ml (<500)
[2023-11-06] VITALS: BP 142/64; PULSE 62; RESP 16; O2SAT 95
--- NOTE | 2023-11-06 | DI.US.S_ITS ---
PROCEDURE: US PERIPH VENOUS LOW EXTREM LT INDICATIONS: LLE SWELLING TECHNIQUE: Real-time imaging, as well as color and pulse Doppler interrogation, were performed of the lower extremity deep veins from the inguinal ligament to the popliteal fossa, with documentation of the visualized calf veins. COMPARISON: None. FINDINGS: The common femoral, femoral, popliteal, and the visualized calf veins are normally compressible, and free of intraluminal thrombus. Color and pulse Doppler demonstrate normal phasic intraluminal flow. There is normal augmentation response to distal compression maneuver. IMPRESSION: 1. No DVT in the left lower extremity. 2. Preliminary report conveyed by the gis developer to the ordering provider. Dictated by: Ashely Renteria M.D. on 11/06/2023 at 1:22 Approved by: Ashely Renteria M.D. on 11/06/2023 at 1:23
[2023-11-06 00:15] VITALS: BP 146/68; PULSE 64; O2SAT 94
--- NOTE | 2023-11-06 00:17 | EKG_ITS ---
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
[2023-11-06 00:30] VITALS: BP 146/67
[2023-11-06 00:34] LABS: Troponin I < 0.012 ng/mL (0.01-0.034)
[2023-11-06 00:39] VITALS: BP 123/56; PULSE 64; RESP 17; O2SAT 97
[2023-11-06 00:46] VITALS: BP 133/62; PULSE 69; RESP 19; O2SAT 95
== END 2023-11-06 01:17 | disposition home or self-care (01) ==
PROVIDERS: Emergency Provider Emergency Medicine; Family Provider Internal Medicine; PCP Internal Medicine
DX: R07.9 Chest pain, unspecified (principal); R60.9 Edema, unspecified
CPT/HCPCS: 36415; 71045; 80053; 82550; 83690; 83735; 83880; 84484; 85025; 85379; 85610; 85730; 93005; 93010; 93971; 96374; 96375; 99284; J2270; J2405

== ENCOUNTER → 2023-11-09 07:33 | Outpatient (CLI) | payer OTHER, SELFPAY ==
--- NOTE | 2023-11-09 07:35 | DI.NM.S_ITS ---
PROCEDURE: NM EXERCISE TREADMILL NON NUC COMPARISON: None. INDICATIONS: Chest Pain FINDINGS: Patient exercised per the standard [place] protocol. Total exercise time was 6 minutes and 40 seconds. Test was terminated secondary to fatigue. Maximal heart rate was 124 bpm which is 78% of max predicted heart rate. Maximum blood pressure was 180/90. Double product is 22,320. [place] of +19%. 7.0 METS. No ischemic changes noted. No chest pains voiced. No significant arrhythmias present. IMPRESSION: 1. Non-diagnostic exercise treadmill stress test due to inability to reach target heart rate. 2. Possible chronotropic incompetency. Dictated by: Hadley Ramirez M.D. on 11/09/2023 at 17:01 Approved by: Hadley Ramirez M.D. on 11/09/2023 at 17:03
== END ==
PROVIDERS: Family Provider Internal Medicine; PCP Internal Medicine; Referring Provider Internal Medicine; Visit Provider Internal Medicine
DX: R07.9 Chest pain, unspecified (principal)
CPT/HCPCS: 93017

== ENCOUNTER → 2023-11-14 07:58 | Outpatient (CLI) | payer OTHER, SELFPAY ==
--- NOTE | 2023-11-14 08:20 | DI.ECHO.S_ITS ---
[place] [facility] : : [address] : : [place] : : [address] : : Phone: [phone] Echocardiogram Report + + :Name: BETHANIE CAMPOS Study Date: 11/14/2023 Height: 72 in : :[facility] ReadingLocation: Weight: 290 lb : : Gender: Male BSA: 2.5 m2 : :: 1960 Age: 62 yrs BP: 150/87 mmHg: :Reason For Study: PERIPHERAL EDEMA : :Ordering Physician: JAIR, : :YELITZA Galan Performed By: Geovani Martins : :Referring: YELITZA ADAM : + + Interpretation Summary 1. The left ventricular contractility is normal. Estimated ejection fraction is greater than 60% with no segmental wall motion abnormalities. Mild concentric LVH. Grade 1 diastolic dysfunction. 2. The right ventricular contractility is normal. 3. Mild left atrial enlargement. All other cardiac chambers are of normal size. 4. Moderate aortic valvular stenosis noted with mean gradient of 37 mmHg. Dimensionless index is 0.30. Mild aortic insufficiency present. 5. No obvious intracardiac shunts. 6. No obvious ventricular masses nor thrombi. 7. No hemodynamically significant pericardial effusion. Conclusion: Normal biventricular systolic function with moderate aortic valvular stenosis. When compared with previous echocardiogram, the aortic valvular stenosis has progressed. Procedure: A two-dimensional transthoracic echocardiogram with color flow and Doppler was performed. The study quality was technically adequate. Comparison is made with the echocardiogram of 10/24/2018. The patient was in sinus rhythm with heart rates between 58-72 bpm during the exam. Left Ventricle: The left ventricle is normal in size. Left ventricular wall thickness is mildly increased. The ejection fraction is estimated to be 60- 65%. Right Ventricle: The right ventricle is normal size. The right ventricular systolic function is normal. Atria: The left atrium is mildly dilated. Right atrial size is normal. The interatrial septum grossly appears intact with no obvious evidence for an atrial septal defect. Mitral Valve: The mitral valve is normal. There is no mitral valve stenosis. There is no mitral regurgitation noted. Aortic Valve: The aortic valve is trileaflet. There is mild aortic valve sclerosis. There is moderate aortic stenosis. The peak aortic velocity is 3.84 m/sec. The aortic valve mean gradient is 36.6 mmHg. There is mild aortic regurgitation. Tricuspid Valve: The tricuspid valve is normal. There is no tricuspid stenosis. There is a trace or physiologic amount of tricuspid regurgitation. Pulmonic Valve: The pulmonic valve is not well visualized. There is no pulmonic valvular regurgitation. Great Vessels: The aortic root is normal size. The dimensions of the ascending aorta are normal. The inferior vena cava was not well visualized. Pericardium/ Pleura There is no pericardial effusion. There is no pleural effusion. MMode/2D Measurements & Calculations LVIDd: 5.1 cm LVOT diam: 2.2 cm LVIDs: 3.1 cm Ao root diam: 3.2 cm FS: 38.0 % asc Aorta Diam: 3.1 cm IVSd: 1.4 cm LVPWd: 1.4 cm LV richter. diameter/BSA (cm/m^2): 2.0 LV sys. diameter/BSA (cm/m^2): 1.3 LA A2 area: 23.2 cm2 RA long axis: 3.9 cm LA A4 area: 27.1 cm2 RA area: 12.6 cm2 LA length (vol): 6.3 cm RA vol: 34.2 ml LA vol: 85.1 ml RA : 13.7 ml/m2 LA vol index: 34.1 ml/m2 RVD1 (basal): 3.7 cm RVD2 (mid): 3.0 cm TAPSE: 3.2 cm Doppler Measurements & Calculations Ao V2 max: 383.8 cm/sec LVOT Max Ashish: 116.6 cm/sec Ao V2 mean: 288.4 cm/sec LV V1 max P.4 mmHg Ao max P.9 mmHg LV V1 VTI: 26.3 cm Ao mean P.6 mmHg MIREYA(I,D): 1.2 cm2 Ao V2 VTI: 88.9 cm MIREYA(V,D): 1.2 cm2 sev ratio: 0.30 MIREYA indexed to BSA (cm^2/m^2): 0.46 MV E max ashish: 56.1 cm/sec PA V2 max: 197.2 cm/sec MV A max ashish: 98.0 cm/sec PA V2 mean: 121.6 cm/sec MV E/A: 0.57 PA mean P.2 mmHg Med Peak E' Ashish: 8.4 cm/sec PA pr(Accel): 19.1 mmHg E/E' med: 6.7 MV dec time: 0.22 sec SV(LVOT): 103.0 ml Reading Physician:
== END ==
LOC: ECHO 07:59
PROVIDERS: Family Provider Internal Medicine; PCP Internal Medicine; Referring Provider Internal Medicine; Visit Provider Internal Medicine
DX: I35.2 Nonrheumatic aortic (valve) stenosis with insufficiency (principal); R60.0 Localized edema
CPT/HCPCS: 93306

== ENCOUNTER → 2023-11-30 15:20 | Outpatient (CLI) | payer OTHER, SELFPAY ==
--- NOTE | 2023-11-30 15:21 | DI.NM.S_ITS ---
PROCEDURE: NM MONTY PERF SPECT R&S PHARM Rest and pharmacological stress myocardial perfusion SPECT with gated imaging and ejection fraction RADIOPHARMACEUTICAL: 2.55 mCi Tc-99m tetrafosmin IV at rest and 2.54 mCi Tc-99m tetrafosmin IV at peak effect of pharmacological stress. [id number] was performed. INDICATIONS: Chest Pain PQRS ATTESTATIONS: Measure 322 - Is this imaging test primarily performed on a low-risk surgery patient for preoperative evaluation within 30 days preceding their low-risk non-cardiac surgery? Low-risk surgery is defined as cardiac or myocardial infarction less than 1%, including (but not limited to) endoscopic procedures, superficial procedures, cataract surgery, and excisional breast surgery: Answer: No Measure 323 - Is this imaging test performed primarily for the monitoring of an asymptomatic patient who had percutaneous coronary intervention on the visit date or within 2 years of the visit date? Answer: No Measure 324 - Is this imaging test performed primarily for the initial detection and risk assessment on an asymptomatic, low coronary heart disease patient? Low CHD risk definition = clinicians should consider the maximum number of available patient factors used to estimate risk based on Ione (ATP III criteria), typically age, gender, diabetes, smoking status, and use of blood pressure medication, and integrate age appropriate estimates for missing elements, such as LDL or standard blood pressure. Answer: No TECHNIQUE: Radiopharmaceutical was injected at peak stress test, and also at rest. SPECT images were obtained. SPECT myocardial perfusion images were displayed in short axis, horizontal long axis, and vertical long axis views. Gated images were reviewed using [employer] software. COMPARISON: None. CARDIAC STRESS: A pharmacologic stress test was performed under the supervision of an attending staff, using an infusion of Lexiscan 0.4 mg. Hemodynamic data: There is normal blood pressure and heart rate response to pharmacologic stress. Symptoms: The patient denied anginal chest pain. Aminophylline: No EKG: No diagnostic changes of ischemia; no ectopy. FINDINGS: Raw data: There is good myocardial uptake of radiotracer. No significant motion artifacts. Jhty-zh-lhrth ratio is 0.42 (normal is less than 0.38 for tetrafosmin tracer). Left ventricle function: Gated images demonstrate normal left ventricular wall thickening. No segmental wall motion abnormalities. No transient ischemic dilation; TID is 1.11 (normal less than 1.3). Left ventricle resting end diastolic volume is 185 mL. Left ventricle stress ejection fraction is 59%; normal range is above 45%. Myocardial perfusion: There is normal distribution of activity in the right and left ventricular myocardium. There is moderate hypoperfusion noted in the basal to mid inferior segment in both the rest, stress, and prone images. Normal gated images present.. IMPRESSION: 1. 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 Dictated by: Hadley Ramirez M.D. on 12/04/2023 at 16:32 Approved by: Hadley Ramirez M.D. on 12/04/2023 at 16:35
== END ==
LOC: NUCM 15:21
PROVIDERS: Family Provider Internal Medicine; PCP Internal Medicine; Referring Provider Internal Medicine; Visit Provider Internal Medicine
DX: R07.9 Chest pain, unspecified (principal)
CPT/HCPCS: 78452; 93017; A9502; J2785

== ENCOUNTER → 2024-02-10 09:19 | Outpatient (CLI) | payer OTHER, SELFPAY ==
[2024-02-10 10:20] LABS: Hematocrit 45.9 % (41-53); Mean Corpuscular HGB Conc 32.7 % (30-36); Mean Corpuscular Volume 88.7 fL (80-100); Platelet Count 232 X10^3/uL (150-400); Red Blood Cell Count 5.18 X10^6/uL (4.5-5.9); Red Cell Distribution Width 15.9 % (11.6-14.8)
[2024-02-10 10:26] LABS: Alanine Aminotransferase 38 IU/L (<50); Albumin 3.9 g/dL (3.5-5.0); Albumin Globulin Ratio 1.3 (1.0-2.8); Alkaline Phosphatase 32 U/L (38-126); Aspartate Aminotransferase 27 IU/L (17-59); BUN Creatinine Ratio 24.1 (6-22); Bilirubin Total 0.4 mg/dL (0.2-1.3); Blood Urea Nitrogen 21 mg/dL (9-20); Calcium 9.3 mg/dL (8.4-10.2); Carbon Dioxide 26 mmol/L (22-32); Chloride 105 mmol/L (98-107); Cholesterol 107 mg/dL (140-199); Estimated Glomerular Filt Rate > 60 mL/min (>60); Globulin 3.1 g/dL (1.7-4.1); Glucose 114 mg/dL (80-110); HDL Cholesterol 40 mg/dL (40-60); HEMOLYSIS < 15 (0-50); LDL Cholesterol Calculated 52 mg/dL (<100); Potassium 4.1 mmol/L (3.4-5.1); Sodium 137 mmol/L (137-145); Triglycerides 75 mg/dL (35-150)
[2024-02-10 10:32] LABS: Hemoglobin A1C% w Est Avg Glu 6.1 % (4.0-6.0)
[2024-02-10 10:35] LABS: NT-proBNP (BNP-Adult 18+) 21 pg/mL (<125)
[2024-02-10 11:44] LABS: Creatinine Urine Random 109.17 mg/dL
== END ==
PROVIDERS: Family Provider Internal Medicine; PCP Internal Medicine; Referring Provider Internal Medicine Cardiovascular Disease; Visit Provider Internal Medicine
DX: I10 Essential (primary) hypertension (principal); R06.09 Other forms of dyspnea; E11.9 Type 2 diabetes mellitus without complications
CPT/HCPCS: 36415; 80053; 80061; 82043; 82570; 83036; 83880; 85027

== ENCOUNTER → 2024-08-13 16:54 | Outpatient (CLI) | payer OTHER, SELFPAY ==
[2024-08-13 17:18] LABS: Appearance Urine UA CLEAR; Bilirubin Urine UA NEGATIVE (NEGATIVE); Color Urine UA YELLOW; Glucose Urine UA NEGATIVE (Negative); Ketones Urine UA NEGATIVE (NEGATIVE); Leukocyte Esterase Urine UA NEGATIVE (NEGATIVE); Nitrite Urine UA NEGATIVE (Negative); Occult Blood Urine UA TRACE-INTACT (Negative); Protein Urine UA TRACE (Negative); Specific Gravity Urine UA 1.025 (1.000-1.035); Urobilinogen Urine UA 0.2 E.U./dL (0.2)
[2024-08-13 17:23] LABS: Alanine Aminotransferase 38 IU/L (<50); Albumin 4.6 g/dL (3.5-5.0); Albumin Globulin Ratio 1.6 (1.0-2.8); Alkaline Phosphatase 40 U/L (38-126); Aspartate Aminotransferase 31 IU/L (17-59); BUN Creatinine Ratio 28.7 (6-22); Bilirubin Total 0.3 mg/dL (0.2-1.3); Blood Urea Nitrogen 27 mg/dL (9-20); Calcium 9.6 mg/dL (8.4-10.2); Carbon Dioxide 28 mmol/L (22-32); Chloride 103 mmol/L (98-107); Estimated Glomerular Filt Rate > 60 mL/min (>60); Globulin 2.8 g/dL (1.7-4.1); Glucose 117 mg/dL (70-99); HEMOLYSIS < 15 (0-50); Sodium 142 mmol/L (137-145); Total Protein 7.4 g/dL (6.3-8.2)
[2024-08-13 17:25] LABS: Hemoglobin A1C% w Est Avg Glu 6.1 % (4.0-6.0)
[2024-08-13 17:26] LABS: Bacteria Urine None Seen; Culture Indicated Urine Cult Not Indicated; RBC Urine None Seen (0-5/HPF); Squamous Epithelial Cell Urine 0-1 /HPF (0-5/HPF); Urine Volume 10mL (spun); WBC Urine 0-1/HPF (0-5/HPF)
== END ==
PROVIDERS: Family Provider Internal Medicine; PCP Internal Medicine; Referring Provider Internal Medicine; Visit Provider Internal Medicine
DX: E11.9 Type 2 diabetes mellitus without complications (principal); I10 Essential (primary) hypertension; R31.9 Hematuria, unspecified
CPT/HCPCS: 36415; 80053; 81001; 83036

== ENCOUNTER → 2024-11-11 16:02 | Outpatient (CLI) | payer OTHER, SELFPAY ==
--- NOTE | 2024-11-11 16:02 | DI.ECHO.S_ITS ---
:Name: BETHANIE CAMPOS? StudyDate: 11/11/2024? Height: 72 in? : :Hospital ?ReadingLocation:? Weight: 300 lb : : ?Gender: Male?BSA: 2.5 m2??? : :: 1960? Age: 63 yrs? BP: 155/86 mmHg: :Reason For Study: AORTIC STENOSIS? : :Ordering Physician: JAIR,? : :YELITZA Galan?Performed By: Geovani Martins?: :Referring: YELITZA ADAM?: + + Interpretation Summary Mild concentric left ventricular hypertrophy with ejection fraction 65-70%. The left atrium is moderately dilated. Severe aortic stenosis. The peak aortic velocity is 4.64 m/sec.(the previous exam was 3.84 m/sec.) Mild aortic regurgitation. Mild mitral annular calcification. Comparison is made with the echocardiogram of 11/14/23, aortic stenosis has progressed. Procedure: ?A two-dimensional transthoracic echocardiogram with color flow and Doppler was performed. The study quality was technically difficult. A contrast injection of Definity was performed to improve assessment of LV function. Comparison is made with the echocardiogram of 11/14/23. The patient was in normal sinus rhythm during the exam. Left Ventricle: ?The left ventricle is normal in size. There is mild concentric left ventricular hypertrophy. There is no ventricular septal defect visualized. The ejection fraction is estimated to be 65-70%. There are no focal wall motion abnormalities. Right Ventricle: ?The right ventricle is normal in size and function. Atria: ?The left atrium is moderately dilated. Right atrial size is normal. The interatrial septum is not well visualized. Mitral Valve: ?There is mild mitral annular calcification. The mitral valve leaflets appear normal.There is no evidence of stenosis, fluttering, or prolapse. There is no mitral regurgitation noted. Aortic Valve:? ?The aortic valve is trileaflet. There is severe aortic stenosis. The peak aortic velocity is 4.64 m/sec. The aortic valve mean gradient is 50.7 mmHg. The peak aortic velocity on the previous exam was 3.84 m/sec. There is mild aortic regurgitation. Tricuspid Valve:? ?The tricuspid valve is normal in structure and function. No tricuspid regurgitation. Pulmonic Valve: ?The pulmonic valve is normal in structure and function. There is no pulmonic valvular regurgitation. Great Vessels:? ?The aortic root is normal size. The dimensions of the ascending aorta are normal. The pulmonary artery is normal size. The inferior vena cava was not visualized. Pericardium/ Pleura ?There is no pericardial effusion. MMode/2D Measurements & Calculations LVIDd: 5.7 cm?LVOT diam: 2.2 cm LVIDs: 4.1 cm?Ao root diam: 3.4 cm FS: 28.8 %?asc Aorta Diam: 3.1 cm EPSS: 0.73 cm IVSd: 1.1 cm LVPWd: 1.1 cm LV richter. diameter/BSA (cm/m^2): 2.2 LV sys. diameter/BSA (cm/m^2):1.6 LA A2 area: 29.3 cm2?RA long axis: 4.2 cm LA A4 area: 27.8 cm2?RA area: 14.0 cm2 LA length (vol): 6.0 cm? RA vol: 39.8 ml LA vol: 114.6 ml? RA : 15.7 ml/m2 LA vol index: 45.3 ml/m2 RVD1 (basal): 3.7 cm RVD2 (mid): 3.1 cm TAPSE: 2.7 cm Doppler Measurements & Calculations Ao V2 max: 464.0 cm/sec? LVOT Max Ashish: 130.9 cm/sec Ao V2 mean: 333.8 cm/sec?LV V1 max P.9 mmHg Ao max P.1 mmHg?LV V1 VTI: 30.2 cm Ao mean P.7 mmHg? MIREYA(I,D): 1.2 cm2 Ao V2 VTI: 97.8 cm?MIREYA(V,D): 1.1 cm2 sev ratio: 0.31 MIREYA indexed to BSA (cm^2/m^2): 0.48 AI P1/2t: 428.7 msec AI dec slope: 296.8 cm/sec2 MV E max ashish: 69.7 cm/sec?PA V2 max: 209.4 cm/sec MV A max ashish: 109.2 cm/sec?PA V2 mean: 140.2 cm/sec MV E/A: 0.64? PA mean P.2 mmHg Med Peak E' Ashish: 5.9 cm/sec?PA pr(Accel): 44.7 mmHg E/E' med: 11.8 Lat Peak E' Ashish: 10.0 cm/sec E/E' lat: 7.0 E/e' average:9.4 MV dec time: 0.29 sec SV(LVOT): 119.0 ml Electronically signed by: Elijah Ronquillo on Reading Physician:11/12/2024 09:59 PM
== END ==
LOC: ECHO 16:04
PROVIDERS: PCP Internal Medicine; Referring Provider Internal Medicine; Visit Provider Internal Medicine
DX: I35.0 Nonrheumatic aortic (valve) stenosis (principal); I34.81 Nonrheumatic mitral (valve) annulus calcification
CPT/HCPCS: C8929; Q9957

== ENCOUNTER 2024-11-17 17:23 | Emergency (ER) | payer OTHER, SELFPAY ==
[2024-11-17] VITALS (18 sets, daily range): BP systolic 119–159; BP diastolic 58–77; PULSE 53–73; RESP 15–19; TEMP 36.4; O2SAT 92–97; BMI 40.8
--- NOTE | 2024-11-17 17:26 | ED.ABDPAIN ---
HPI - Abdominal Pain <Paco DO Danika - Last Filed: 11/17/24 17:40> General Chief Complaint: Abdominal Pain Stated Complaint: abd pain/ injuiry Time Seen by Provider: 11/17/24 17:26 History of Present Illness HPI narrative: Patient is a 63-year-old male with a past medical history of hyperlipidemia, hypothyroidism, hypertension, diabetes comes into the ED from home for evaluation of left-sided chest/upper abdomen pain. States that just prior to arrival he was using a saw when a piece of wood kicked back and hit him into his chest/abdomen. He is not on any blood thinners. Denies any other injuries at this time. Related Data Home Medications ?Medication ?Instructions ?Recorded ?Confirmed syringe with needle 3 mL 21 gauge #1 ea 11/05/23 09/27/24 x 1 (BD Luer-Hannah Syringe) syringe with needle, safety 3 mL #50 ea 11/05/23 09/27/24 25 gauge x 1 (BD Integra Syringe) atorvastatin 40 mg tablet 40 mg PO DAILY 02/15/24 09/27/24 spironolactone 50 mg tablet 50 mg PO DAILY 02/15/24 09/27/24 Previous Rx's ?Medication ?Instructions ?Recorded Syringes syr IM SEE INSTRUCTIONS ##7 05/02/17 mometasone-formoterol HFA 100 2 puff inhalation BID #13 grams 04/19/21 mcg-5 mcg/actuation aerosol inhaler gabapentin 300 mg capsule 300 mg PO TID PRN numbness and 11/29/22 tingling #270 caps meloxicam 15 mg tablet 15 mg PO DAILY #90 tabs 11/29/22 methocarbamol 750 mg tablet 750 mg PO Q8H PRN muscle spasm #30 05/29/23 tabs tadalafil 20 mg tablet 10 - 20 mg (0.5 - 1 x 20 mg) PO 10/05/23 DAILY PRN sexual activity #45 tabs bupropion HCl 150 mg tablet,12 hr 150 mg PO BID #180 tabs 11/07/23 sustained-release hydrochlorothiazide 25 mg tablet 25 mg PO DAILY #90 tabs 11/07/23 omeprazole 40 mg capsule,delayed 40 mg PO DAILY #90 caps 11/07/23 release syringe with needle 3 mL 20 gauge See Rx Instructions .Route 12/29/23 x 1 (BD Luer-Hannah Syringe) .COMPLEX #7 ea albuterol sulfate 90 mcg/actuation 1 inh inhalation Q4-6H PRN wheeze 02/12/24 aerosol inhaler #6.7 grams losartan 25 mg tablet 25 mg PO DAILY #90 tabs 02/15/24 levothyroxine 200 mcg tablet 200 mcg PO DAILY #90 tabs 03/04/24 semaglutide 1 mg/dose (4 mg/3 mL) 1 mg (0.75 mL) SUBCUT QWEEK #12 mL 03/04/24 subcutaneous pen injector testosterone cypionate 200 mg/mL 450 mg (2.25 mL) IM .[id number] #45 mL 07/18/24 intramuscular oil (Depo-Testosterone) needle (disp) 25 gauge 25 gauge x #1,000 ea 07/24/24 1 (Poly Hub Needle) quetiapine 25 mg tablet 25 mg PO BEDTIME PRN insomnia #90 09/27/24 tabs Allergies Allergy/AdvReac Type Severity Reaction Status Date / Time lisinopril AdvReac Mild Cough Verified 11/17/24 17:35 Review of Systems <Paco Garnica, DO - Last Filed: 11/17/24 17:40> Review of Systems Narrative: General: Denies fever, chills, weight loss HEENT: Denies headache, eye drainage, eye irritation, head trauma, sore throat, voice change Cardiovascular: Denies any chest pain, palpitations, tachycardia Respiratory: Denies any shortness of breath, cough, wheeze, stridor GI/: Positive abdominal pain, denies nausea, vomiting, diarrhea, bright red blood per rectum, melanotic stools, urinary frequency, urinary retention, dysuria, hematuria MSK: Denies any joint pain, muscle pains, swelling Skin: Denies any rashes, lesions, discoloration Neuro: Denies any headache, lightheadedness, dizziness, fainting, weakness Psych: Denies SI/HI Patient History <Paco Garnica, - Last Filed: 11/17/24 17:40> Medical History (Updated 11/18/24 @ 05:11 by Gab Watt MD) Insomnia Aortic stenosis Diabetes type 2, controlled Myofascial pain Foraminal stenosis of cervical region Bilateral carpal tunnel syndrome Impingement of left shoulder 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 (~05/2023) Cervicalgia Impaired glucose tolerance Strain of right rotator cuff capsule BMI 38.0-38.9,adult Excessive daytime sleepiness Asthma, mild persistent Chronic headaches (02/22/06) Low testosterone in male (2009) Hypothyroidism (1994) Hearing loss (2007) GERD (gastroesophageal reflux disease) Hematuria Closed head injury (02/22/06) Obstructive sleep apnea of adult Essential hypertension (11/12/15) Recurrent major depressive disorder, in full remission (01/01/14) Post-traumatic headache, not intractable (03/25/13) Hypogonadism in male (08/13/12) Gastroesophageal reflux disease Hyperlipidemia (11/11/10) Acquired hypothyroidism (11/11/10) Surgical History Status post knee surgery (08/07/17) History of vasectomy (04/2010) History of knee replacement (2003) Family History Brother Diabetes mellitus Father Diabetes mellitus Heart attack Mother Cancer Diabetes mellitus Stroke Sister Diabetes mellitus Social History marital status: number of children: 2 household members: spouse lives independently: Yes caregiver/support person: No housing: house pets and animals: Yes education level: college occupational status: employed current occupational exposures/hazards: No Previous occupational history: 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 austyn/worship: Rastafari travel history: recent and other leisure activities: sports and other Tobacco: How many years used: 0 Smokeless tobacco user: chewing tobacco quit status: quit date established second hand exposure: Yes (Childhood, When at [employer]) alcohol intake: current substance use type: does not use Exam <Paco Garnica, - Last Filed: 11/17/24 17:40> Narrative Exam Narrative: General: Cooperative, well-developed, not in acute distress HEENT: Normocephalic, atraumatic, PERRLA, normal sclera, eyelids normal Neck: Active full range of motion, atraumatic Chest: Normal to inspection, negative crepitus, no overlying erythema ecchymosis Respiratory: Normal respiratory effort, not in acute respiratory distress, clear to auscultation bilaterally negative cough, wheeze, tachypnea, rhonchi, rales Cardiology: Regular rate rhythm negative gallop, murmur, rubs GI/: Mild tenderness to palpation left upper abdomen, soft, non rigid, normal to inspection, exam deferred MSK: Full active range of motion in all 4 extremities, atraumatic, patient with moderate tenderness to palpation of the left lower ribs anteriorly Skin: No rashes or lesions noted Neuro: Alert awake oriented x3, moves all 4 extremities spontaneously, cranial nerves intact, able to answer all questions appropriately follows commands appropriately Psych: Cooperative, negative suicidal or homicidal ideations Initial Vital Signs Initial Vital Signs: Vital Signs Temperature 97.6 F 11/17/24 17:35 Pulse Rate 73 11/17/24 17:35 Respiratory Rate 18 11/17/24 17:35 Blood Pressure 155/72 H 11/17/24 17:35 Pulse Oximetry 94 11/17/24 17:35 Oxygen Delivery Method Room Air 11/17/24 17:35 <Gab Watt MD - Last Filed: 11/18/24 05:29> Initial Vital Signs Initial Vital Signs: Vital Signs Temperature 97.6 F 11/17/24 17:35 Pulse Rate 73 11/17/24 17:35 Respiratory Rate 18 11/17/24 17:35 Blood Pressure 155/72 H 11/17/24 17:35 Pulse Oximetry 94 11/17/24 17:35 Oxygen Delivery Method Room Air 11/17/24 17:35 Course <Paco Garnica DO - Last Filed: 11/17/24 17:40> Orders Ordered: ED Orders 11/17/24 21:40 Troponin I Stat 11/17/24 22:42 EKG-12 Lead Stat 11/18/24 02:18 Troponin I Stat Discontinued Medications Hydrocodone Bitart/Acetaminophen (Hydrocodone/Acet 5/325 Tablet) 1 tab PO NOW ONE Stop: 11/18/24 00:01 Last Admin: 11/18/24 00:30 Dose: 1 tab Documented By: CLEMENCIA Hydrocodone Bitart/Acetaminophen (Hydrocodone/Acet 5/325 Prepack) 1 bottle MISC DIRECTED ONE Stop: 11/18/24 04:59 Hydromorphone HCl (Hydromorphone Hcl 0.5 Mg/0.5 Ml Syringe) 0.5 mg IV NOW ONE Stop: 11/17/24 22:47 Last Admin: 11/17/24 23:45 Dose: 0.5 mg Documented By: CLEMENCIA Morphine Sulfate (Morphine 4 Mg/Ml Inj) 4 mg IV NOW ONE Stop: 11/17/24 17:34 Last Admin: 11/17/24 17:58 Dose: 4 mg Documented By: KAYLEEN Morphine Sulfate (Morphine 4 Mg/Ml Inj) 4 mg IV NOW ONE Stop: 11/17/24 19:58 Last Admin: 11/17/24 20:02 Dose: 4 mg Documented By: KAYLEEN Ondansetron HCl (Ondansetron 4 Mg/2 Ml Inj) 4 mg IV NOW ONE Stop: 11/17/24 17:34 Last Admin: 11/17/24 17:59 Dose: 4 mg Documented By: KAYLEEN Vital Signs Vital signs: Vital Signs - 8 hr 11/17/24 21:30 11/17/24 21:31 11/17/24 21:31 Pulse Rate 53 L 71 Respiratory Rate 15 16 Blood Pressure 119/58 L Pulse Oximetry 96 96 Oxygen Delivery Method 11/17/24 22:00 11/17/24 22:00 11/17/24 22:30 Pulse Rate 70 Respiratory Rate 19 Blood Pressure 130/63 126/62 Pulse Oximetry 95 Oxygen Delivery Method 11/17/24 22:30 11/17/24 22:30 11/17/24 23:00 Pulse Rate 66 66 58 L Respiratory Rate 17 17 15 Blood Pressure Pulse Oximetry 96 96 96 Oxygen Delivery Method 11/17/24 23:00 11/17/24 23:30 11/17/24 23:31 Pulse Rate 66 Respiratory Rate 16 Blood Pressure 145/69 H 133/60 Pulse Oximetry 95 Oxygen Delivery Method Room Air 11/17/24 23:31 11/18/24 00:00 11/18/24 00:00 Pulse Rate 70 75 Respiratory Rate 16 19 Blood Pressure 147/65 H Pulse Oximetry 94 93 Oxygen Delivery Method Room Air 11/18/24 00:23 11/18/24 00:23 11/18/24 00:30 Pulse Rate 64 Respiratory Rate 21 Blood Pressure 175/74 H 153/69 H Pulse Oximetry 95 Oxygen Delivery Method 11/18/24 00:30 11/18/24 01:00 11/18/24 01:01 Pulse Rate 58 L 54 L 57 L Respiratory Rate 17 16 15 Blood Pressure Pulse Oximetry 93 91 91 Oxygen Delivery Method Room Air 11/18/24 01:01 11/18/24 01:30 11/18/24 01:30 Pulse Rate 63 Respiratory Rate 15 Blood Pressure 130/61 125/58 L Pulse Oximetry 93 Oxygen Delivery Method 11/18/24 02:00 11/18/24 02:00 11/18/24 02:30 Pulse Rate 55 L Respiratory Rate 13 Blood Pressure 123/58 L 135/70 Pulse Oximetry 92 Oxygen Delivery Method Room Air 11/18/24 02:30 11/18/24 03:00 11/18/24 03:00 Pulse Rate 67 54 L Respiratory Rate 14 14 Blood Pressure 139/65 Pulse Oximetry 94 95 Oxygen Delivery Method 11/18/24 03:30 11/18/24 03:30 11/18/24 04:00 Pulse Rate 57 L 56 L Respiratory Rate 16 17 Blood Pressure 142/67 H Pulse Oximetry 93 92 Oxygen Delivery Method Room Air 11/18/24 04:01 11/18/24 04:01 11/18/24 04:30 Pulse Rate 56 L 56 L Respiratory Rate 15 15 Blood Pressure 140/73 Pulse Oximetry 93 92 Oxygen Delivery Method Room Air 11/18/24 04:31 11/18/24 04:31 11/18/24 05:00 Pulse Rate 64 Respiratory Rate 20 Blood Pressure 122/59 L 145/70 H Pulse Oximetry 95 Oxygen Delivery Method Room Air 11/18/24 05:00 Pulse Rate 57 L Respiratory Rate 16 Blood Pressure Pulse Oximetry 94 Oxygen Delivery Method <Gab Watt MD - Last Filed: 11/18/24 05:29> Orders Ordered: ED Orders 11/17/24 21:40 Troponin I Stat 11/17/24 22:42 EKG-12 Lead Stat 11/18/24 02:18 Troponin I Stat Discontinued Medications Hydrocodone Bitart/Acetaminophen (Hydrocodone/Acet 5/325 Tablet) 1 tab PO NOW ONE Stop: 11/18/24 00:01 Last Admin: 11/18/24 00:30 Dose: 1 tab Documented By: CLEMENCIA Hydrocodone Bitart/Acetaminophen (Hydrocodone/Acet 5/325 Prepack) 1 bottle MISC DIRECTED ONE Stop: 11/18/24 04:59 Hydromorphone HCl (Hydromorphone Hcl 0.5 Mg/0.5 Ml Syringe) 0.5 mg IV NOW ONE Stop: 11/17/24 22:47 Last Admin: 11/17/24 23:45 Dose: 0.5 mg Documented By: CLEMENCIA Morphine Sulfate (Morphine 4 Mg/Ml Inj) 4 mg IV NOW ONE Stop: 11/17/24 17:34 Last Admin: 11/17/24 17:58 Dose: 4 mg Documented By: KAYLEEN Morphine Sulfate (Morphine 4 Mg/Ml Inj) 4 mg IV NOW ONE Stop: 11/17/24 19:58 Last Admin: 11/17/24 20:02 Dose: 4 mg Documented By: KAYLEEN Ondansetron HCl (Ondansetron 4 Mg/2 Ml Inj) 4 mg IV NOW ONE Stop: 11/17/24 17:34 Last Admin: 11/17/24 17:59 Dose: 4 mg Documented By: KAYLEEN Vital Signs Vital signs: Vital Signs - 8 hr 11/17/24 21:30 11/17/24 21:31 11/17/24 21:31 Pulse Rate 53 L 71 Respiratory Rate 15 16 Blood Pressure 119/58 L Pulse Oximetry 96 96 Oxygen Delivery Method 11/17/24 22:00 11/17/24 22:00 11/17/24 22:30 Pulse Rate 70 Respiratory Rate 19 Blood Pressure 130/63 126/62 Pulse Oximetry 95 Oxygen Delivery Method 11/17/24 22:30 11/17/24 22:30 11/17/24 23:00 Pulse Rate 66 66 58 L Respiratory Rate 17 17 15 Blood Pressure Pulse Oximetry 96 96 96 Oxygen Delivery Method 11/17/24 23:00 11/17/24 23:30 11/17/24 23:31 Pulse Rate 66 Respiratory Rate 16 Blood Pressure 145/69 H 133/60 Pulse Oximetry 95 Oxygen Delivery Method Room Air 11/17/24 23:31 11/18/24 00:00 11/18/24 00:00 Pulse Rate 70 75 Respiratory Rate 16 19 Blood Pressure 147/65 H Pulse Oximetry 94 93 Oxygen Delivery Method Room Air 11/18/24 00:23 11/18/24 00:23 11/18/24 00:30 Pulse Rate 64 Respiratory Rate 21 Blood Pressure 175/74 H 153/69 H Pulse Oximetry 95 Oxygen Delivery Method 11/18/24 00:30 11/18/24 01:00 11/18/24 01:01 Pulse Rate 58 L 54 L 57 L Respiratory Rate 17 16 15 Blood Pressure Pulse Oximetry 93 91 91 Oxygen Delivery Method Room Air 11/18/24 01:01 11/18/24 01:30 11/18/24 01:30 Pulse Rate 63 Respiratory Rate 15 Blood Pressure 130/61 125/58 L Pulse Oximetry 93 Oxygen Delivery Method 11/18/24 02:00 11/18/24 02:00 11/18/24 02:30 Pulse Rate 55 L Respiratory Rate 13 Blood Pressure 123/58 L 135/70 Pulse Oximetry 92 Oxygen Delivery Method Room Air 11/18/24 02:30 11/18/24 03:00 11/18/24 03:00 Pulse Rate 67 54 L Respiratory Rate 14 14 Blood Pressure 139/65 Pulse Oximetry 94 95 Oxygen Delivery Method 11/18/24 03:30 11/18/24 03:30 11/18/24 04:00 Pulse Rate 57 L 56 L Respiratory Rate 16 17 Blood Pressure 142/67 H Pulse Oximetry 93 92 Oxygen Delivery Method Room Air 11/18/24 04:01 11/18/24 04:01 11/18/24 04:30 Pulse Rate 56 L 56 L Respiratory Rate 15 15 Blood Pressure 140/73 Pulse Oximetry 93 92 Oxygen Delivery Method Room Air 11/18/24 04:31 11/18/24 04:31 11/18/24 05:00 Pulse Rate 64 Respiratory Rate 20 Blood Pressure 122/59 L 145/70 H Pulse Oximetry 95 Oxygen Delivery Method Room Air 11/18/24 05:00 Pulse Rate 57 L Respiratory Rate 16 Blood Pressure Pulse Oximetry 94 Oxygen Delivery Method MDM - Abdominal Pain <Paco Garnica, DO - Last Filed: 11/17/24 17:40> Lab Data 11/17/24 17:40 11/17/24 17:40 Labs: Lab Results 11/17/24 11/17/24 11/17/24 Range/Units 17:40 19:35 21:40 WBC 12.8 H (4.5-11.0) X10^3/uL RBC 4.98 (4.5-5.9) X10^6/uL Hgb 14.5 (13.5-17.5) g/dL Hct 43.4 (41-53) % MCV 87.2 (80-100) fL MCH 29.1 (26-34) PG MCHC 33.4 (30-36) % RDW 15.8 H (11.6-14.8) % Plt Count 234 (150-400) X10^3/uL Neut % (Auto) 70.2 (50-75) % Lymph % (Auto) 17.9 L (25-40) % [place] % (Auto) 8.8 (3-14) % Eos % (Auto) 2.1 (2-4) % Baso % (Auto) 1.0 (0-2) % Neut # (Auto) 9000 H (4785-3551) /uL Lymph # (Auto) 2300 (4685-4694) /uL [place] # (Auto) 1100 H (0-900) /uL Eos # (Auto) 300 (0-450) /uL Baso # (Auto) 100 (0-100) /uL PT 11.5 (9.4-12.5) SECONDS INR 1.0 (0.9-1.3) APTT 32 (25.1-36.5) SECONDS Sodium 135 L (137-145) mmol/L Potassium 3.7 (3.4-5.1) mmol/L Chloride 101 (98-107) mmol/L Carbon Dioxide 24 (22-32) mmol/L BUN 23 H (9-20) mg/dL Creatinine 0.89 (0.66-1.25) mg/dL Estimated GFR > 60 (>60) mL/min BUN/Creatinine Ratio 25.8 H (6-22) Glucose 114 H (70-99) mg/dL Calcium 9.3 (8.4-10.2) mg/dL Magnesium 1.6 (1.6-2.3) mg/dL Total Bilirubin 0.3 (0.2-1.3) mg/dL AST 32 (17-59) IU/L ALT 34 (<50) IU/L Alkaline Phosphatase 40 (38-126) U/L Total Creatine Kinase 259 H (55-170) U/L Troponin I 0.067 H 0.077 H 0.078 H (0.01-0.034) ng/mL Total Protein 8.0 (6.3-8.2) g/dL Albumin 4.5 (3.5-5.0) g/dL Globulin 3.5 (1.7-4.1) g/dL Albumin/Globulin Ratio 1.3 (1.0-2.8) Lipase 84 (23-300) U/L 11/18/24 Range/Units 02:18 WBC (4.5-11.0) X10^3/uL RBC (4.5-5.9) X10^6/uL Hgb (13.5-17.5) g/dL Hct (41-53) % MCV (80-100) fL MCH (26-34) PG MCHC (30-36) % RDW (11.6-14.8) % Plt Count (150-400) X10^3/uL Neut % (Auto) (50-75) % Lymph % (Auto) (25-40) % [place] % (Auto) (3-14) % Eos % (Auto) (2-4) % Baso % (Auto) (0-2) % Neut # (Auto) (1770-3938) /uL Lymph # (Auto) (5160-7406) /uL [place] # (Auto) (0-900) /uL Eos # (Auto) (0-450) /uL Baso # (Auto) (0-100) /uL PT (9.4-12.5) SECONDS INR (0.9-1.3) APTT (25.1-36.5) SECONDS Sodium (137-145) mmol/L Potassium (3.4-5.1) mmol/L Chloride (98-107) mmol/L Carbon Dioxide (22-32) mmol/L BUN (9-20) mg/dL Creatinine (0.66-1.25) mg/dL Estimated GFR (>60) mL/min BUN/Creatinine Ratio (6-22) Glucose (70-99) mg/dL Calcium (8.4-10.2) mg/dL Magnesium (1.6-2.3) mg/dL Total Bilirubin (0.2-1.3) mg/dL AST (17-59) IU/L ALT (<50) IU/L Alkaline Phosphatase (38-126) U/L Total Creatine Kinase (55-170) U/L Troponin I 0.071 H (0.01-0.034) ng/mL Total Protein (6.3-8.2) g/dL Albumin (3.5-5.0) g/dL Globulin (1.7-4.1) g/dL Albumin/Globulin Ratio (1.0-2.8) Lipase (23-300) U/L ECG Data Interpretation: EKG interpreted ED physician sinus 74 beats per minute QTC 444, QRS NM interval within normal limits, left axis deviation no STEMI MDM Narrative Medical decision making narrative: 63-year-old male with a past medical history of hypertension, hyperlipidemia, hypothyroidism, diabetes comes into the ED from home for evaluation of left-sided chest and abdominal pain, states that this happened after he was using a table saw and a piece of wood kicked back and hit him in his chest/abdomen. Not on any blood thinners, on exam there is tenderness to palpation of the left anterior lower ribs and left upper abdomen. He was able to stand bear weight ambulate unassisted here in the emergency department. Patient had lab work imaging EKG performed here. <Gab Watt MD - Last Filed: 11/18/24 05:29> Lab Data Attestation: I reviewed the patient's lab results. Lab results narrative: White blood cell count 99211, hemoglobin 14.5, platelets adequate. Glucose 114. BUN 23 with creatinine 0.89 normal renal function. Normal serum CO2 and potassium, sodium 135 slight low. Magnesium 1.6 normal. Liver functions and lipase normal. CPK 259 slight elevation. Troponin 0.067 indeterminate range. Labs: Lab Results 11/17/24 11/17/24 11/17/24 Range/Units 17:40 19:35 21:40 WBC 12.8 H (4.5-11.0) X10^3/uL RBC 4.98 (4.5-5.9) X10^6/uL Hgb 14.5 (13.5-17.5) g/dL Hct 43.4 (41-53) % MCV 87.2 (80-100) fL MCH 29.1 (26-34) PG MCHC 33.4 (30-36) % RDW 15.8 H (11.6-14.8) % Plt Count 234 (150-400) X10^3/uL Neut % (Auto) 70.2 (50-75) % Lymph % (Auto) 17.9 L (25-40) % [place] % (Auto) 8.8 (3-14) % Eos % (Auto) 2.1 (2-4) % Baso % (Auto) 1.0 (0-2) % Neut # (Auto) 9000 H (6217-2958) /uL Lymph # (Auto) 2300 (3134-9722) /uL [place] # (Auto) 1100 H (0-900) /uL Eos # (Auto) 300 (0-450) /uL Baso # (Auto) 100 (0-100) /uL PT 11.5 (9.4-12.5) SECONDS INR 1.0 (0.9-1.3) APTT 32 (25.1-36.5) SECONDS Sodium 135 L (137-145) mmol/L Potassium 3.7 (3.4-5.1) mmol/L Chloride 101 (98-107) mmol/L Carbon Dioxide 24 (22-32) mmol/L BUN 23 H (9-20) mg/dL Creatinine 0.89 (0.66-1.25) mg/dL Estimated GFR > 60 (>60) mL/min BUN/Creatinine Ratio 25.8 H (6-22) Glucose 114 H (70-99) mg/dL Calcium 9.3 (8.4-10.2) mg/dL Magnesium 1.6 (1.6-2.3) mg/dL Total Bilirubin 0.3 (0.2-1.3) mg/dL AST 32 (17-59) IU/L ALT 34 (<50) IU/L Alkaline Phosphatase 40 (38-126) U/L Total Creatine Kinase 259 H (55-170) U/L Troponin I 0.067 H 0.077 H 0.078 H (0.01-0.034) ng/mL Total Protein 8.0 (6.3-8.2) g/dL Albumin 4.5 (3.5-5.0) g/dL Globulin 3.5 (1.7-4.1) g/dL Albumin/Globulin Ratio 1.3 (1.0-2.8) Lipase 84 (23-300) U/L 11/18/24 Range/Units 02:18 WBC (4.5-11.0) X10^3/uL RBC (4.5-5.9) X10^6/uL Hgb (13.5-17.5) g/dL Hct (41-53) % MCV (80-100) fL MCH (26-34) PG MCHC (30-36) % RDW (11.6-14.8) % Plt Count (150-400) X10^3/uL Neut % (Auto) (50-75) % Lymph % (Auto) (25-40) % [place] % (Auto) (3-14) % Eos % (Auto) (2-4) % Baso % (Auto) (0-2) % Neut # (Auto) (9390-2803) /uL Lymph # (Auto) (5355-9711) /uL [place] # (Auto) (0-900) /uL Eos # (Auto) (0-450) /uL Baso # (Auto) (0-100) /uL PT (9.4-12.5) SECONDS INR (0.9-1.3) APTT (25.1-36.5) SECONDS Sodium (137-145) mmol/L Potassium (3.4-5.1) mmol/L Chloride (98-107) mmol/L Carbon Dioxide (22-32) mmol/L BUN (9-20) mg/dL Creatinine (0.66-1.25) mg/dL Estimated GFR (>60) mL/min BUN/Creatinine Ratio (6-22) Glucose (70-99) mg/dL Calcium (8.4-10.2) mg/dL Magnesium (1.6-2.3) mg/dL Total Bilirubin (0.2-1.3) mg/dL AST (17-59) IU/L ALT (<50) IU/L Alkaline Phosphatase (38-126) U/L Total Creatine Kinase (55-170) U/L Troponin I 0.071 H (0.01-0.034) ng/mL Total Protein (6.3-8.2) g/dL Albumin (3.5-5.0) g/dL Globulin (1.7-4.1) g/dL Albumin/Globulin Ratio (1.0-2.8) Lipase (23-300) U/L Imaging Data CT chest abdomen and pelvis: Radiologist's Impression: [address] [address] [address] Scan Report Signed Patient: Francis Osborne MR#: [id number] : 1960 Acct:[id number] Age/Sex: 63 / M Date of Service: 11/17/24 Loc: ED Accession Number: [id number] Procedure: CT chest abd pel w con Ordering Provider: Paco Garnica D.O. PROCEDURE: CT CHEST ABD PEL W CON INDICATIONS: Trauma, wood hit left sided chest/upper abd TECHNIQUE: After the administration of intravenous contrast, 5 mm thick sections acquired from the lung apices to the symphysis. 2.5 mm thick coronal and sagittal reformats were acquired. Additional 7 mm thick coronal maximum intensity projection (MIP) reformats acquired through the lungs. Optional 10-minute delayed imaging may be performed from the kidneys to the bladder. For radiation dose reduction, the following was used: automated exposure control, adjustment of mA and/or kV according to patient size. COMPARISON: None. FINDINGS: Image quality: Diagnostic. CHEST: Lower Neck: No enlarged lymph nodes. Thyroid: No thyroid nodules which require sonographic evaluation. Axillae: No enlarged lymph nodes. Chest Wall: No subcutaneous gas. Lungs and Pleura: No pulmonary contusions or lacerations. No acute airspace opacities. No pneumothorax or hemothorax. Mediastinum: No mediastinal hematomas. Heart size is normal. No pericardial effusion. Thoracic aorta and pulmonary arteries demonstrate normal size and enhancement. No mediastinal or hilar adenopathy. Esophagus is normal in caliber. No hiatal hernia. ABDOMEN: Liver: No lacerations. Gallbladder: No radiopaque gallstones or wall thickening. Biliary ducts: No biliary dilation. Pancreas: Homogenous enhancement. Spleen: Homogenous enhancement without laceration or hematoma. Adrenal Glands: Symmetric enhancement. A 3 cm right adrenal adenoma is present. Kidneys and Ureters: Symmetric enhancement. No hydronephrosis. No solid mass. No complex renal cystic lesion which requires follow up. Stomach and Bowel: Normal colonic caliber, without significant wall thickening. Peritoneum: There is mild mesenteric edema within the central mesentery with associated lymphadenopathy. Scattered tiny retroperitoneal lymph nodes are also noted. No abnormal intraperitoneal fluid. No free air. Ventral Wall: No hernia. Abdominal Nodes: No retroperitoneal or mesenteric adenopathy by size criteria. Vessels: Aorta and inferior vena cava are normal in size. PELVIS: Pelvic Organs: Unremarkable. Bladder: Normal thickness. Pelvic Nodes: No enlarged lymph nodes. Miscellaneous: There are fat containing umbilical and left inguinal hernias. Bones: There is no displaced rib fracture. There is a 1.8 cm lucent lesion within the right glenoid with a thin sclerotic margin. There is grade 1 anterolisthesis of L5 on S1 secondary bilateral pars defects. Vertebral alignment is otherwise anatomic. Pelvic ring and hip joints appear intact. No displaced rib fractures. IMPRESSION: No evidence of traumatic injury to the chest, abdomen or pelvis. 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 Mesenteric edema and mild lymphadenopathy which is nonspecific but can be seen in the setting of infection, lymphoma, and mesenteric panniculitis. Follow-up abdominal CT in 3 months is recommended if there is no history of lymphoma. Right adrenal adenoma. Dictated by: Patricia Cardenas M.D. on 11/17/2024 at 17:23 Approved by: Patricia Cardenas M.D. on 11/17/2024 at 17:38 ECG Data Interpretation: EKG interpreted ED physician sinus 74 beats per minute QTC 444, QRS NM interval within normal limits, left axis deviation no STEMI 2025, sinus bradycardia with rate of 52, no obvious ST segment elevation or depression changes. LVH changes noted. NM 176, QRS 112, QTC 412. No change from prior study 5:37 p.m.. 2245, sinus rhythm with marked sinus arrhythmia, ventricular rate 73, no obvious ST segment elevation or depression changes, LVH changes again noted. NM 178, QRS 108, QTC 456. No change from prior studies. MDM Narrative Medical decision making narrative: 63-year-old male with a past medical history of hypertension, hyperlipidemia, hypothyroidism, diabetes comes into the ED from home for evaluation of left-sided chest and abdominal pain, states that this happened after he was using a table saw and a piece of wood kicked back and hit him in his chest/abdomen. Not on any blood thinners, on exam there is tenderness to palpation of the left anterior lower ribs and left upper abdomen. He was able to stand bear weight ambulate unassisted here in the emergency department. Patient had lab work imaging EKG performed here. 11/17/24, Shukri Murray. Sign-out from Dr. Garnica. 63-year-old male with history of hypertension, hyperthyroidism, hyperlipidemia, was using table saw, had kick back while sewing a piece of wood, struck him in the anterior chest abdominal junction, no penetrating injuries, has tenderness on examination left anterior lower ribs and left upper abdomen. Hemodynamically stable. Labs pending. CT chest abdomen and pelvis ordered. EKG and initial troponin sent. Assumed care. Initial lab data: White blood cell count 35732, hemoglobin 14.5, platelets adequate. Glucose 114. BUN 23 with creatinine 0.89 normal renal function. Normal serum CO2 and potassium, sodium 135 slight low. Magnesium 1.6 normal. Liver functions and lipase normal. CPK 259 slight elevation. Troponin 0.[address] chest abdomen and pelvis. Impressions: ?No evidence of traumatic injury to the chest, abdomen or pelvis. 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 Mesenteric edema and mild lymphadenopathy which is nonspecific but can be seen in the setting of infection, lymphoma, and mesenteric panniculitis. Follow-up abdominal CT in 3 months is recommended if there is no history of lymphoma. Right adrenal adenoma. See radiology report. EKG 2025, sinus bradycardia with rate of 52. Repeat 2nd troponin 0.077, indeterminate range increased slightly from prior 1st result EKG 04/25/2044, normal sinus rhythm with rate of 73, unchanged. Interval 3rd troponin 0.078 similar range to 2nd draw 2300, case discussed with [facility] trauma intake, await call back. 2345, case discussed with [facility] trauma, who feels the patient has not developed any dysrhythmia to warrant urgent transfer, had negative CT imaging of the chest, could monitor overnight here on telemetry, would further trend the troponin to make sure it is not continuing to rise. Patient does not want to be transferred to [place], prefers not to be admitted at this time, but willing to stay in the emergency department for continued cardiac monitoring overnight on telemetry. We will repeat troponin in 4 hours from last draw. 0315, most recent troponin 0.071 decreasing 0530, unremarkable remainder of overnight course on telemetry, no ectopy. Patient has no change in mild chest wall discomfort. Hydrocodone/APAP home pack for discharge. PCP Manjit. Case discussed with cross cover physician Dr. 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 Consider recheck on Monday with PCP or someone from his group, to further assess his work status and degree of exertion and exercise tolerance at that time. Patient seems amenable to this plan. We will discharge patient home with days off for the rest of today and tomorrow. Close follow up on Monday with PCP/group provider. Return precautions. Discharged home with family. Discharge Plan Departure Patient Disposition: Home Clinical Impression: Contusion of anterior chest wall Activity Restrictions/Additional Instructions: Blunt trauma to the chest, kicked back action of the piece of wood from table saw yesterday. Initial screening chest x-ray unremarkable, no obvious ischemic changes on EKGs, serial studies that looked the same, not evolving. You had mild indeterminate range elevation of your troponin blood test from the heart, serial blood tests stayed within the indeterminate range and then decreased. CT chest abdomen and pelvis imaging was done, no acute cardiopulmonary changes were noted, no gross fluid around the heart noted. You had no ectopy abnormal heart rhythms, were watched on telemetry overnight. Case was discussed with [facility] trauma, who felt that you did not require transfer at this time for further workup, advised further observation here, did not think he necessarily needs today cardiac echocardiogram ultrasound at this time, monitor for heart rhythm disturbance overnight advised. You preferred not to be transferred to [place], also preferred to be further monitored here in the emergency department overnight. There was no ectopy overnight. Hemodynamically stable. Case was discussed with Dr. Greenwood, boy cover for your primary care physician Dr. Saravia. He or your primary care provider could see you on Monday. Off work later today Monday and tomorrow Monday. Advised to rest at home, not to exert yourself. Avoid going up and downstairs. Advised recheck in clinic on Monday with your regular provider, to further assess appropriateness to increase your exercise and activity tolerance. Return earlier to this/nearest emergency department for any change worsening symptoms or any concerns prior. Prescriptions: No Action (DME) BD Integra Syringe 3 mL 25 gauge x 1 syringe See Rx Instructions .ROUTE .MEDSUPPLY Qty: 50 Patient Comments: [NO ORIGINAL SIG] Rx Instructions: As directed (DME) BD Luer-Hannah Syringe 3 mL 21 gauge x 1 syringe See Rx Instructions .ROUTE .MEDSUPPLY Qty: 1 Patient Comments: [NO ORIGINAL SIG] Rx Instructions: As directed Syringes IM SEE INSTRUCTIONS Qty: 7 3RF mometasone-formoterol 100-5 mcg/actuation HFA aerosol inhaler 2 puff inhalation BID Qty: 13 3RF gabapentin 300 mg capsule 300 mg PO TID PRN (Reason: numbness and tingling) Qty: 270 3RF meloxicam 15 mg tablet 15 mg PO DAILY Qty: 90 3RF methocarbamol 750 mg tablet 750 mg PO Q8H PRN (Reason: muscle spasm) Qty: 30 1RF hydrochlorothiazide 25 mg tablet 25 mg PO DAILY Qty: 90 3RF omeprazole 40 mg capsule,delayed release(DR/EC) 40 mg PO DAILY Qty: 90 3RF bupropion HCl 150 mg tablet sustained-release 12 hr 150 mg PO BID Qty: 180 3RF BD Luer-Hannah Syringe 3 mL 20 gauge x 1 syringe See Rx Instructions .ROUTE .COMPLEX Qty: 7 2RF Dose Instruction: USE ONE SYRINGE EVERY 4 WEEKS WITH TESTOSTERONE. Rx Instructions: USE ONE SYRINGE EVERY 4 WEEKS WITH TESTOSTERONE. albuterol sulfate 90 mcg/actuation HFA aerosol inhaler 1 inh INHALATION Q4-6H PRN (Reason: wheeze) Qty: 6.7 3RF levothyroxine 200 mcg tablet 200 mcg PO DAILY Qty: 90 3RF semaglutide 1 mg/dose (4 mg/3 mL) pen injector 1 mg SUBCUT QWEEK Qty: 12 3RF Rx Instructions: Use after 4 weeks of the 0.5mg dose (separate Rx) testosterone cypionate [Depo-Testosterone] 200 mg/mL oil 450 mg IM .[id number] Qty: 45 1RF (DME) Poly Hub Needle 25 gauge x 1 needle See Rx Instructions .ROUTE .MEDSUPPLY Qty: 1000 1RF Patient Comments: [NO ORIGINAL SIG] Rx Instructions: As directed spironolactone 50 mg tablet 50 mg PO DAILY atorvastatin 40 mg tablet 40 mg PO DAILY losartan 25 mg tablet 25 mg PO DAILY Qty: 90 3RF quetiapine 25 mg tablet 25 mg PO BEDTIME PRN (Reason: insomnia) Qty: 90 0RF tadalafil 20 mg tablet 10 - 20 mg PO DAILY PRN (Reason: sexual activity) Qty: 45 4RF Rx Instructions: take approx 30min before activity; do not use more than 1 dose/day Referrals: Douglas Barber MD [Physician, Cardiology] Geovani Greenwood MD [Physician, Family Practice] Stefan Saravia MD [Primary Care Provider, Internal Medicine] Stand Alone Forms: Patient Portal/API
--- NOTE | 2024-11-17 17:34 | DI.CT.S_ITS ---
PROCEDURE: CT CHEST ABD PEL W CON INDICATIONS: Trauma, wood hit left sided chest/upper abd TECHNIQUE: After the administration of intravenous contrast, 5 mm thick sections acquired from the lung apices to the symphysis. 2.5 mm thick coronal and sagittal reformats were acquired. Additional 7 mm thick coronal maximum intensity projection (MIP) reformats acquired through the lungs. Optional 10-minute delayed imaging may be performed from the kidneys to the bladder. For radiation dose reduction, the following was used: automated exposure control, adjustment of mA and/or kV according to patient size. COMPARISON: None. FINDINGS: Image quality: Diagnostic. CHEST: Lower Neck: No enlarged lymph nodes. Thyroid: No thyroid nodules which require sonographic evaluation. Axillae: No enlarged lymph nodes. Chest Wall: No subcutaneous gas. Lungs and Pleura: No pulmonary contusions or lacerations. No acute airspace opacities. No pneumothorax or hemothorax. Mediastinum: No mediastinal hematomas. Heart size is normal. No pericardial effusion. Thoracic aorta and pulmonary arteries demonstrate normal size and enhancement. No mediastinal or hilar adenopathy. Esophagus is normal in caliber. No hiatal hernia. ABDOMEN: Liver: No lacerations. Gallbladder: No radiopaque gallstones or wall thickening. Biliary ducts: No biliary dilation. Pancreas: Homogenous enhancement. Spleen: Homogenous enhancement without laceration or hematoma. Adrenal Glands: Symmetric enhancement. A 3 cm right adrenal adenoma is present. Kidneys and Ureters: Symmetric enhancement. No hydronephrosis. No solid mass. No complex renal cystic lesion which requires follow up. Stomach and Bowel: Normal colonic caliber, without significant wall thickening. Peritoneum: There is mild mesenteric edema within the central mesentery with associated lymphadenopathy. Scattered tiny retroperitoneal lymph nodes are also noted. No abnormal intraperitoneal fluid. No free air. Ventral Wall: No hernia. Abdominal Nodes: No retroperitoneal or mesenteric adenopathy by size criteria. Vessels: Aorta and inferior vena cava are normal in size. PELVIS: Pelvic Organs: Unremarkable. Bladder: Normal thickness. Pelvic Nodes: No enlarged lymph nodes. Miscellaneous: There are fat containing umbilical and left inguinal hernias. Bones: There is no displaced rib fracture. There is a 1.8 cm lucent lesion within the right glenoid with a thin sclerotic margin. There is grade 1 anterolisthesis of L5 on S1 secondary bilateral pars defects. Vertebral alignment is otherwise anatomic. Pelvic ring and hip joints appear intact. No displaced rib fractures. IMPRESSION: No evidence of traumatic injury to the chest, abdomen or pelvis. 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 Mesenteric edema and mild lymphadenopathy which is nonspecific but can be seen in the setting of infection, lymphoma, and mesenteric panniculitis. Follow-up abdominal CT in 3 months is recommended if there is no history of lymphoma. Right adrenal adenoma. Dictated by: Patricia Cardenas M.D. on 11/17/2024 at 17:23 Approved by: Patricia Cardenas M.D. on 11/17/2024 at 17:38
--- NOTE | 2024-11-17 17:37 | EKG_ITS ---
[address] [address] Test Date: 2024-11-17 Pat Name: Francis Osborne Department: Room: Gender: Male Crna: PATRIZIA : 1960 Requested By: Order Number: [id number] Reading MD: Stefan Saravia MD Measurements Intervals [place] Rate: 74 P: 53 [place]: 160 QRS: -11 QRSD: 112 T: 153 QT: 400 QTc: 444 Interpretive Statements Normal sinus rhythm with sinus arrhythmia Left ventricular hypertrophy with repolarization abnormality ( R in aVL , Hermann product ) Inferior infarct , age undetermined NO SIGNIFICANT CHANGE FROM PRIOR TRACING Electronically Signed On 11-18-2024 7:47:30 PDT by Stefan Saravia MD
[2024-11-17 17:49] LABS: Add Manual Diff / Slide Review NO; Hematocrit 43.4 % (41-53); Hemoglobin 14.5 g/dL (13.5-17.5); Lymphocytes Absolute Auto 2300 /uL (1100-4500); Mean Corpuscular HGB Conc 33.4 % (30-36); Mean Corpuscular Hemoglobin 29.1 PG (26-34); Mean Corpuscular Volume 87.2 fL (80-100); Platelet Count 234 X10^3/uL (150-400)
[2024-11-17 17:53] LABS: INR 1.0 (0.9-1.3); Prothrombin Time 11.5 SECONDS (9.4-12.5)
[2024-11-17 17:56] LABS: PTT Partial Thromboplastin Tim 32 SECONDS (25.1-36.5)
[2024-11-17 17:58] LABS: Alanine Aminotransferase 34 IU/L (<50); Albumin 4.5 g/dL (3.5-5.0); Albumin Globulin Ratio 1.3 (1.0-2.8); Alkaline Phosphatase 40 U/L (38-126); Blood Urea Nitrogen 23 mg/dL (9-20); Calcium 9.3 mg/dL (8.4-10.2); Carbon Dioxide 24 mmol/L (22-32); Chloride 101 mmol/L (98-107); Creatine Kinase 259 U/L (55-170); Estimated Glomerular Filt Rate > 60 mL/min (>60); Globulin 3.5 g/dL (1.7-4.1); Glucose 114 mg/dL (70-99); HEMOLYSIS 24 (0-50); Lipase 84 U/L (23-300); Magnesium 1.6 mg/dL (1.6-2.3); Potassium 3.7 mmol/L (3.4-5.1); Sodium 135 mmol/L (137-145); Total Protein 8.0 g/dL (6.3-8.2)
[2024-11-17] MEDS: MORPHINE 4 MG/ML INJ IV ×2 (17:58→20:02)
[2024-11-17] MEDS: ONDANSETRON 4 MG/2 ML INJ IV (17:59)
[2024-11-17 18:09] LABS: Troponin I 0.067 ng/mL (0.01-0.034)
[2024-11-17 20:04] LABS: Troponin I 0.077 ng/mL (0.01-0.034)
--- NOTE | 2024-11-17 20:26 | EKG_ITS ---
[facility] [address] [place] [address] Test Date: 2024-11-17 Pat Name: Francis Osborne Department: 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
[2024-11-17 22:14] LABS: Troponin I 0.078 ng/mL (0.01-0.034)
--- NOTE | 2024-11-17 22:45 | EKG_ITS ---
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
[2024-11-18] VITALS (15 sets, daily range): BP systolic 122–175; BP diastolic 58–74; PULSE 54–75; RESP 13–21; O2SAT 91–95
[2024-11-18 02:45] LABS: Troponin I 0.071 ng/mL (0.01-0.034)
== END 2024-11-18 05:22 | disposition home or self-care (01) ==
PROVIDERS: Student in an Organized Health Care Education/Training Program; Emergency Provider Emergency Medicine; PCP Internal Medicine
DX: S20.212A Contusion of left front wall of thorax, initial encounter (principal); X58.XXXA Exposure to other specified factors, initial encounter
CPT/HCPCS: 36415; 71260; 74177; 80053; 82550; 83690; 83735; 84484; 85025; 85610; 85730; 93005; 93010; 96374; 96375; 96376; 99284; J1171; J2272; J2405; Q9967

== ENCOUNTER → 2025-03-03 11:38 | Outpatient (CLI) | payer OTHER, SELFPAY ==
[2025-03-03 13:25] LABS: Influenza A - CEPHEID Flu A NEGATIVE (NEGATIVE); Influenza B - CEPHEID Flu B NEGATIVE (NEGATIVE)
[2025-03-03 13:26] LABS: COVID-19 CEPHEID 4-PLEX PCR Negative (Negative)
== END ==
PROVIDERS: PCP Internal Medicine; Visit Provider Nurse Practitioner Family
DX: R05.1 Acute cough (principal)
CPT/HCPCS: 87637